=== PATIENT | male | born 1955 | race Caucasian/White ===

== ENCOUNTER → 2018-01-16 13:04 | Outpatient (CLI) | payer OTHER, SELFPAY ==
[2018-01-16 14:37] LABS: Alanine Aminotransferase 38 IU/L (21-72); Albumin 4.8 g/dL (3.5-5.0); Albumin Globulin Ratio 1.7 (1.0-2.8); Alkaline Phosphatase 83 U/L (38-126); Aspartate Aminotransferase 31 IU/L (17-59); BUN Creatinine Ratio 15.6 (6-22); Bilirubin Total 0.3 mg/dL (0.2-1.3); Blood Urea Nitrogen 14 mg/dL (9-20); Carbon Dioxide 28 mmol/L (22-32); Chloride 104 mmol/L (98-107); Cholesterol 141 mg/dL (140-199); Estimated Glomerular Filt Rate > 60.0 mL/min (>60); Globulin 2.8 g/dL (1.7-4.1); Glucose 108 mg/dL (80-110); HDL Cholesterol 41 mg/dL (40-60); HEMOLYSIS < 15 (0-50); LDL Cholesterol Calculated 65 mg/dL (<100); Potassium 4.9 mmol/L (3.4-5.1); Sodium 144 mmol/L (137-145); Total Protein 7.6 g/dL (6.3-8.2); Triglycerides 174 mg/dL (35-150)
== END ==
PROVIDERS: Family Provider Internal Medicine; PCP Internal Medicine; Visit Provider Internal Medicine
DX: E78.5 Hyperlipidemia, unspecified (principal); G25.9 Extrapyramidal and movement disorder, unspecified; I25.10 Atherosclerotic heart disease of native coronary artery without angina pectoris
CPT/HCPCS: 36415; 80053; 80061

== ENCOUNTER → 2018-11-22 08:33 | Outpatient (CLI) | payer OTHER, SELFPAY ==
[2018-11-22 10:05] LABS: Alanine Aminotransferase 26 IU/L (21-72); Albumin 4.2 g/dL (3.5-5.0); Albumin Globulin Ratio 1.4 (1.0-2.8); Alkaline Phosphatase 92 U/L (38-126); Aspartate Aminotransferase 38 IU/L (17-59); Bilirubin Total 0.4 mg/dL (0.2-1.3); Blood Urea Nitrogen 16 mg/dL (9-20); Calcium 9.3 mg/dL (8.4-10.2); Carbon Dioxide 24 mmol/L (22-32); Chloride 106 mmol/L (98-107); Cholesterol 142 mg/dL (140-199); Estimated Glomerular Filt Rate > 60.0 mL/min (>60); Glucose 123 mg/dL (80-110); HDL Cholesterol 32 mg/dL (40-60); HEMOLYSIS 15 (0-50); LDL Cholesterol Calculated 71 mg/dL (<100); Magnesium 2.1 mg/dL (1.6-2.3); Sodium 138 mmol/L (137-145); Total Protein 7.2 g/dL (6.3-8.2); Triglycerides 193 mg/dL (35-150)
[2018-11-22 10:39] LABS: Thyroid Stimulating Hormone 1.52 uIU/mL (0.47-4.68)
== END ==
PROVIDERS: PCP Internal Medicine; Visit Provider Internal Medicine Cardiovascular Disease
DX: E78.5 Hyperlipidemia, unspecified (principal); R00.1 Bradycardia, unspecified
CPT/HCPCS: 36415; 80053; 80061; 83735; 84443

== ENCOUNTER 2019-01-03 11:15 | Outpatient (RCR) | payer OTHER, SELFPAY ==
--- NOTE | 2018-05-04 16:00 | PT.OIE ---
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) Hyperlipidemia (Chronic 09/25/10) Peripheral neuropathy (Chronic 09/25/10) Gastroesophageal reflux disease without esophagitis (Chronic 09/25/10) Umbilical hernia without obstruction and without gangrene (Chronic) Irritable bowel syndrome (Chronic 09/25/10) History of nephrolithiasis (Chronic) Colon polyps (Chronic ~2012) Past Surgical History History of carpal tunnel repair Status post discectomy Provider Visit Care Team Role Provider Type Frankie Martinez MD Primary Care Provider Physician Specialty: Internal Medicine Address: [address] [place] [address], [id number] Email: [email or web address] Latonya Perea MD Attending Provider Non-Staff Specialty: Neurology Address: [address] [place] [address], [id number] Email: Physical Therapy Initial Evaluation PT-OP-A Visit Information Start: 05/04/18 17:51 Freq: Status: Active Protocol: Document 05/04/18 16:00 RCC (Rec: 05/07/18 15:33 [facility] [email or web address]) Out-Patient Physical Therapy Visit Information Visit Information Visit Type Initial Evaluation Visit Start Time 16:00 Visit Stop Time 16:45 Total Visit Minutes 45 Visit Number 1 Number of CELERY WRAPPER Visits 0 Evaluation Information Evaluation Date 05/04/18 PT-OP-B Current Condition Start: 05/04/18 17:51 Freq: Status: Active Protocol: Document 05/04/18 16:00 RCC (Rec: 05/07/18 15:33 RCC [email or web address]) Current Condition History of Current Condition Current Complaints B neuropathy (painful) and low back pain History of Current Condition Pt is a 62 y/o male presenting to physical therapy with a c/ o bilateral LE and low back pain. He reports low back pain is chronic, but LE pain has been worsening due to peripheral neuropathy worsening over the past year. He admits to general lower back and LE cramping and weakness noted in his legs. He does try to work on his stationary bike for 15 min 3 times per week. His has advanced Parkinson's Disease, and does have some CG help but does have to physically assist at home. He admits that he was taking narcotics for pain control but recently stopped in December of 2017. He states that the pain clinic he has attended has not helped much with pain. He would like to gain strength in his legs, improve balance and if possible maybe decrease his LE pain. He has trouble with stairs at home (he has a full flight he does daily with rail ), but would love to get back to doing yard work with less discomfort or issues. He is being seen by Dr. Perea for re-assessments a few times a year Treatment Goals Patient/Caregiver Goals improve mobility, be able to do yard work, improve strength and balance Prior Functional Status Baseline Function- Recreation/Hobbies yard work and mowing his lawn Current Functional Impairments (Reported) Functional Limitations- Recreation/ unable to mow lawn or do yard Hobbies work due to pain Personal Factors Other Personal Factors That May Effect h/o 3 back surgeries, T11 Therapy/Recovery kyphoplasty 2011, bilateral neuropathy, dyskinesia with spasms- aggravated with stress per pt; h/o depression, primary CG for with advanced PD PT-OP-C Subjective Start: 05/04/18 17:51 Freq: Status: Active Protocol: Document 05/04/18 16:00 RCC (Rec: 05/07/18 15:33 [facility] [email or web address]) OP-PT Subjective Patient Comments Patient Reported Progress Worse Patient Questionnaires Lower Extremity Functional Scale LEFS Score 38 LEFS Impairment 40 to 59% Impaired (Score 32- 47) OP-PT Pain Assessment Location bilateral LEs Pain Location Details 4 Scale Used Numeric (1 - 10) PT-OP-E Functional Tests Start: 05/04/18 17:51 Freq: Status: Active Protocol: Document 05/04/18 16:00 RCC (Rec: 05/07/18 15:33 [facility] [email or web address]) Functional Tests Functional Gait Assessment Score 25 Functional Gait Assessment Impairment 1 to <20% Impaired (Score 25- Rating 29) PT-OP-F Manual Assessment Start: 05/04/18 17:51 Freq: Status: Active Protocol: Document 05/04/18 16:00 RCC (Rec: 05/07/18 15:33 RCC [email or web address]) Manual Assessments Soft Tissue Assessment Soft Tissue Mobility Assessment hypertonicity in lumbar paraspinals and QL bilaterally PT-OP-G Mobility & Gait Start: 05/04/18 17:51 Freq: Status: Active Protocol: Document 05/04/18 16:00 RCC (Rec: 05/07/18 15:33 RCC [email or web address]) OP Gait Assessment Gait Deviations General Gait Pattern Antalgic Decreased Stride Length Wide Based Gait Stair Climbing Evaluation Comments Stair Climbing Comments see Functional Gait Assessment PT-OP-H Neuro Start: 05/04/18 17:51 Freq: Status: Active Protocol: Document 05/04/18 16:00 RCC (Rec: 05/07/18 15:33 RCC [email or web address]) Sensation Evaluation Gross Sensation Gross Sensation Left LE Impaired Right LE Impaired Coordination Evaluation Upper Extremity Tests Right Alternate Nose to Finger Test Normal Performance Pronation/Supination Test Normal Performance Left Alternate Nose to Finger Test Normal Performance Pronation/Supination Test Normal Performance Lower Extremity Tests Right Alternate Heel to Knee; Heel to Toe Test Normal Performance Left Alternate Heel to Knee; Heel to Toe Test Normal Performance Deep Tendon Reflex & Clonus Assessment Deep Tendon Reflex Left Patellar Deep Tendon Reflex 0 Absent Right Patellar Deep Tendon Reflex 2+ Normal Bilateral Achilles Deep Tendon Reflex 2+ Normal Ankle Clonus Bilateral Clonus Assessment Absent PT-OP-K Range of Motion Start: 05/04/18 17:51 Freq: Status: Active Protocol: Document 05/04/18 16:00 RCC (Rec: 05/07/18 15:33 RCC [email or web address]) Lumbar Spine Range of Motion Lumbar Spine Active Degrees Testing Position Standing Flexion 60 Extension 10 PT-OP-L Special Tests Start: 05/04/18 17:51 Freq: Status: Active Protocol: Document 05/04/18 16:00 RCC (Rec: 05/07/18 15:33 RCC [email or web address]) Special Tests Lumbar Spine Special Tests Vertical Spine Loading Test Results negative B Manual Traction Test Results no difference B Straight Leg Raise Test Results negative B PT-OP-M Strength Start: 05/04/18 17:51 Freq: Status: Active Protocol: Document 05/04/18 16:00 RCC (Rec: 03/03/19 15:33 RCC [email or web address]) Hip Strength Hip Manual Muscle Testing Right Flexion (L2) 5 Normal Adduction 5 Normal External Rotation 4 Good Internal Rotation 4+ Good+ Left Flexion (L2) 4+ Good+ Adduction 5 Normal External Rotation 4+ Good+ Internal Rotation 4+ Good+ Knee Strength Knee Manual Muscle Testing Right Flexion (S2) 4+ Good+ Extension (L3) 5 Normal Left Flexion (S2) 5 Normal Extension (L3) 5 Normal Ankle/Foot Strength Ankle and Foot Manual Muscle Testing Right Dorsiflexion (L4) 4+ Good+ Plantarflexion (S1) 4 Good Inversion 5 Normal Eversion (S1) 5 Normal Left Dorsiflexion (L4) 5 Normal Plantarflexion (S1) 4 Good Inversion 5 Normal Eversion (S1) 5 Normal Toe Strength Toe Manual Muscle Testing Left Great Toe Extension 5 Normal Right Great Toe Extension 4+ Good+ PT-OP-Q Treatments Start: 05/04/18 17:51 Freq: Status: Active Protocol: Document 05/04/18 16:00 [facility] (Rec: 05/07/18 15:33 RCC [email or web address]) Therapeutic Exercises Supine Exercises TA activation Supine Exercise Name transverse abdominal activation Side bilateral Comments hooklying Standing Exercises HC stretch Side bilateral Reps/Minutes 2x1 min Comments stairs HS stretch Side bilateral Reps/Minutes 2x30 sec each Comments stairs Other Exercises psoas stretch Other Exercise Name kneeling psoas stretch Side bilateral Reps/Minutes x30 sec each PT-OP-T Assessment and Plan Start: 05/04/18 17:51 Freq: Status: Active Protocol: Document 05/04/18 16:00 [facility] (Rec: 05/07/18 15:33 [facility] [email or web address]) Physical Therapy Assessment Rehab Potential Rehabilitation Potential Fair Evaluation Complexity Number of Personal Factors/Comorbidities 3 or More Number of Body Systems Impaired 3 Clinical Presentation at Evaluation Stable Impairments Impairments Activity Tolerance Balance Functional Activities Functional Mobility Gait Pain Posture Soft Tissue Mobility Strength Goals Recreational activities Impairment unable to do yard work due to pain. Short Term Goal (STG) Pt will report being able to do yard work for 30 min with pain rated 2/10 or less. STG Duration 4 weeks Circuit Rider Goal (LTG) Pt will report being able to do yard work for 1 hr with pain rated 2/10 or less prior to d/c. LTG Duration 8 weeks LE strength Impairment LE weakness Senior Living Goal (LTG) Pt with score 5/5 with all LE manual muscle testing prior to d/c to assist with improved tolerance to managing stairs at home. LTG Duration 8 weeks Functional Gait Assessment Impairment Functional Gait Score 25/30 Circuit Rider Goal (LTG) Pt will improve to >27/30 with Functional Gait Assessment score to demonstrate improvements with dynamic standing balance and gait equal to peers of his own age prior to d/c. LTG Duration 8 weeks LEFS Impairment Lower Extremity Functional Scale: 38/80 Short Term Goal (STG) Pt will improve with Lower Extremity Functional scale to 43 or greater, to demonstrate improvements with functional mobility and daily tasks. STG Duration 4 weeks Circuit Rider Goal (LTG) Pt will improve with Lower Extremity Functional scale to 48 or greater, to demonstrate improvements with functional mobility and daily tasks. LTG Duration 8 weeks Assessment Summary Assessment Pt presents with BLE pain, appearing to be due to bilateral peripheral neuropathy. His low back pain is chronic and notes his main concern is to improve his strength, balance, and be able to do yard work around his home. Pt's Functional Gait Assessment Score is 25/30, which is below people of his age mean score of 27.1, demonstrating multiple gait deviations and difficulties with functional dynamic activities. Pt is a good candidate for physical therapy to improve his strength, activity tolerance, dynamic standing balance, as well as continued progression of a home exercise program to incorporate with his already 3x/wk recumbent bicycle training. Physical Therapy Plan Frequency and Duration Frequency of Treatment 2x/Week Duration of Treatment 8 weeks Plan of Care Start Date 05/04/18 Plan of Care End Date 06/29/18 Therapeutic Interventions Therapeutic Interventions Aquatic Therapy Balance Training Gait Training Home Exercise Program Manual Therapy Neuromuscular Re-education Patient/Caregiver Education Self-Care/Home Management Soft Tissue Mobilization Taping Therapeutic Activities Therapeutic Exercises Modalities Cold Pack/Ice Massage Electric Stimulation Hot Packs Ultrasound Next Visit Focus/Plan Next Note Type Treatment Note Next Visit Plan aishwarya Shuttle Balance board training, Shuttle Recovery for LE strengthening; continue LE stretching and lower chain strengthening, advance core stability.
--- NOTE | 2018-05-04 16:00 | PT.OPPOC ---
Current Diagnoses Dystonia, unspecified (05/04/18) Hereditary and idiopathic neuropathy, unspecified (05/04/18) Provider Visit Care Team Role Provider Type Frankie Martinez MD Primary Care Provider Physician Specialty: Internal Medicine Address: [address] [place] [address], [id number] Email: [email or web address] Latonya Perea MD Attending Provider Non-Staff Specialty: Neurology Address: [address] [place] [address], [id number] Email: Plan Of Care PT-OP-T Assessment and Plan Start: 05/04/18 17:51 Freq: Status: Active Protocol: Document 05/04/18 16:00 RCC (Rec: 05/07/18 15:33 RCC [email or web address]) Physical Therapy Assessment Rehab Potential Rehabilitation Potential Fair Evaluation Complexity Number of Personal Factors/Comorbidities 3 or More Number of Body Systems Impaired 3 Clinical Presentation at Evaluation Stable Impairments Impairments Activity Tolerance Balance Functional Activities Functional Mobility Gait Pain Posture Soft Tissue Mobility Strength Goals Recreational activities Impairment unable to do yard work due to pain. Short Term Goal (STG) Pt will report being able to do yard work for 30 min with pain rated 2/10 or less. STG Duration 4 weeks Mcfp Goal (LTG) Pt will report being able to do yard work for 1 hr with pain rated 2/10 or less prior to d/c. LTG Duration 8 weeks LE strength Impairment LE weakness Mcfp Goal (LTG) Pt with score 5/5 with all LE manual muscle testing prior to d/c to assist with improved tolerance to managing stairs at home. LTG Duration 8 weeks Functional Gait Assessment Impairment Functional Gait Score 25/30 Mcfp Goal (LTG) Pt will improve to >27/30 with Functional Gait Assessment score to demonstrate improvements with dynamic standing balance and gait equal to peers of his own age prior to d/c. LTG Duration 8 weeks LEFS Impairment Lower Extremity Functional Scale: 38/80 Short Term Goal (STG) Pt will improve with Lower Extremity Functional scale to 43 or greater, to demonstrate improvements with functional mobility and daily tasks. STG Duration 4 weeks Biofuels Processing Technician Goal (LTG) Pt will improve with Lower Extremity Functional scale to 48 or greater, to demonstrate improvements with functional mobility and daily tasks. LTG Duration 8 weeks Assessment Summary Assessment Pt presents with BLE pain, appearing to be due to bilateral peripheral neuropathy. His low back pain is chronic and notes his main concern is to improve his strength, balance, and be able to do yard work around his home. Pt's Functional Gait Assessment Score is 25/30, which is below people of his age mean score of 27.1, demonstrating multiple gait deviations and difficulties with functional dynamic activities. Pt is a good candidate for physical therapy to improve his strength, activity tolerance, dynamic standing balance, as well as continued progression of a home exercise program to incorporate with his already 3x/wk recumbent bicycle training. Physical Therapy Plan Frequency and Duration Frequency of Treatment 2x/Week Duration of Treatment 8 weeks Plan of Care Start Date 05/04/18 Plan of Care End Date 06/29/18 Therapeutic Interventions Therapeutic Interventions Aquatic Therapy Balance Training Gait Training Home Exercise Program Manual Therapy Neuromuscular Re-education Patient/Caregiver Education Self-Care/Home Management Soft Tissue Mobilization Taping Therapeutic Activities Therapeutic Exercises Modalities Cold Pack/Ice Massage Electric Stimulation Hot Packs Ultrasound Next Visit Focus/Plan Next Note Type Treatment Note Next Visit Plan aishwarya, Shuttle Balance board training, Shuttle Recovery for LE strengthening; continue LE stretching and lower chain strengthening, advance core stability. Plan of Care Dates Plan of Care Start Date 05/04/18 Plan of Care End Date 06/29/18 Please Sign and Return: I have reviewed this Plan of Care and certify that the skilled therapy services above are required to meet the patient?s needs. Physician Signature Date Printed Name and Credentials Clinical Instructor Signature Printed Name and Credentials
--- NOTE | 2018-05-09 13:51 | PT.OTN ---
Current Diagnoses Dystonia, unspecified (05/09/18) Hereditary and idiopathic neuropathy, unspecified (05/09/18) Physical Therapy Treatment Note PT-OP-A Visit Information Start: 05/04/18 17:51 Freq: Status: Active Protocol: Document 05/09/18 13:03 EA (Rec: 05/09/18 13:50 EA [id number]) Out-Patient Physical Therapy Visit Information Visit Information Visit Start Time 10:30 Visit Stop Time 11:15 Total Visit Minutes 42 Visit Number 2 PT-OP-B Current Condition Start: 05/04/18 17:51 Freq: Status: Active Protocol: Document 05/04/18 16:00 RCC (Rec: 05/07/18 15:33 RCC [email or web address]) Current Condition History of Current Condition Current Complaints B neuropathy (painful) and low back pain History of Current Condition Pt is a 62 y/o male presenting to physical therapy with a c/ o bilateral LE and low back pain. He reports low back pain is chronic, but LE pain has been worsening due to peripheral neuropathy worsening over the past year. He admits to general lower back and LE cramping and weakness noted in his legs. He does try to work on his stationary bike for 15 min 3 times per week. His has advanced Parkinson's Disease, and does have some CG help but does have to physically assist at home. He admits that he was taking narcotics for pain control but recently stopped in December of 2017. He states that the pain clinic he has attended has not helped much with pain. He would like to gain strength in his legs, improve balance and if possible maybe decrease his LE pain. He has trouble with stairs at home (he has a full flight he does daily with rail ), but would love to get back to doing yard work with less discomfort or issues. He is being seen by Dr. Perea for re-assessments a few times a year Treatment Goals Patient/Caregiver Goals improve mobility, be able to do yard work, improve strength and balance Prior Functional Status Baseline Function- Recreation/Hobbies yard work and mowing his lawn Current Functional Impairments (Reported) Functional Limitations- Recreation/ unable to mow lawn or do yard Hobbies work due to pain Personal Factors Other Personal Factors That May Effect h/o 3 back surgeries, T11 Therapy/Recovery kyphoplasty 2011, bilateral neuropathy, dyskinesia with spasms- aggravated with stress per pt; h/o depression, primary CG for with advanced PD PT-OP-C Subjective Start: 05/04/18 17:51 Freq: Status: Active Protocol: Document 05/09/18 13:03 EA (Rec: 05/09/18 13:50 EA [id number]) OP-PT Subjective Patient Comments Patient Comments Pt reports unable to walk more than 1/4 a mile due to weakness on BLE's; states pain to lumbar region and upper gluteals also bothers his mobility. PT-OP-E Functional Tests Start: 05/04/18 17:51 Freq: Status: Active Protocol: Document 05/04/18 16:00 RCC (Rec: 05/07/18 15:33 RCC [email or web address]) Functional Tests Functional Gait Assessment Score 25 Functional Gait Assessment Impairment 1 to <20% Impaired (Score 25- Rating 29) PT-OP-F Manual Assessment Start: 05/04/18 17:51 Freq: Status: Active Protocol: Document 05/04/18 16:00 RCC (Rec: 05/07/18 15:33 RCC [email or web address]) Manual Assessments Soft Tissue Assessment Soft Tissue Mobility Assessment hypertonicity in lumbar paraspinals and QL bilaterally PT-OP-G Mobility & Gait Start: 05/04/18 17:51 Freq: Status: Active Protocol: Document 05/04/18 16:00 RCC (Rec: 05/07/18 15:33 RCC [email or web address]) OP Gait Assessment Gait Deviations General Gait Pattern Antalgic Decreased Stride Length Wide Based Gait Stair Climbing Evaluation Comments Stair Climbing Comments see Functional Gait Assessment PT-OP-H Neuro Start: 05/04/18 17:51 Freq: Status: Active Protocol: Document 05/04/18 16:00 RCC (Rec: 05/07/18 15:33 RCC [email or web address]) Sensation Evaluation Gross Sensation Gross Sensation Left LE Impaired Right LE Impaired Coordination Evaluation Upper Extremity Tests Right Alternate Nose to Finger Test Normal Performance Pronation/Supination Test Normal Performance Left Alternate Nose to Finger Test Normal Performance Pronation/Supination Test Normal Performance Lower Extremity Tests Right Alternate Heel to Knee; Heel to Toe Test Normal Performance Left Alternate Heel to Knee; Heel to Toe Test Normal Performance Deep Tendon Reflex & Clonus Assessment Deep Tendon Reflex Left Patellar Deep Tendon Reflex 0 Absent Right Patellar Deep Tendon Reflex 2+ Normal Bilateral Achilles Deep Tendon Reflex 2+ Normal Ankle Clonus Bilateral Clonus Assessment Absent PT-OP-K Range of Motion Start: 05/04/18 17:51 Freq: Status: Active Protocol: Document 05/04/18 16:00 RCC (Rec: 05/07/18 15:33 RCC [email or web address]) Lumbar Spine Range of Motion Lumbar Spine Active Degrees Testing Position Standing Flexion 60 Extension 10 PT-OP-L Special Tests Start: 05/04/18 17:51 Freq: Status: Active Protocol: Document 05/04/18 16:00 RCC (Rec: 05/07/18 15:33 RCC [email or web address]) Special Tests Lumbar Spine Special Tests Vertical Spine Loading Test Results negative B Manual Traction Test Results no difference B Straight Leg Raise Test Results negative B PT-OP-M Strength Start: 05/04/18 17:51 Freq: Status: Active Protocol: Document 05/04/18 16:00 RCC (Rec: 05/07/18 15:33 RCC [email or web address]) Hip Strength Hip Manual Muscle Testing Right Flexion (L2) 5 Normal Adduction 5 Normal External Rotation 4 Good Internal Rotation 4+ Good+ Left Flexion (L2) 4+ Good+ Adduction 5 Normal External Rotation 4+ Good+ Internal Rotation 4+ Good+ Knee Strength Knee Manual Muscle Testing Right Flexion (S2) 4+ Good+ Extension (L3) 5 Normal Left Flexion (S2) 5 Normal Extension (L3) 5 Normal Ankle/Foot Strength Ankle and Foot Manual Muscle Testing Right Dorsiflexion (L4) 4+ Good+ Plantarflexion (S1) 4 Good Inversion 5 Normal Eversion (S1) 5 Normal Left Dorsiflexion (L4) 5 Normal Plantarflexion (S1) 4 Good Inversion 5 Normal Eversion (S1) 5 Normal Toe Strength Toe Manual Muscle Testing Left Great Toe Extension 5 Normal Right Great Toe Extension 4+ Good+ PT-OP-Q Treatments Start: 05/04/18 17:51 Freq: Status: Active Protocol: Document 05/09/18 13:03 EA (Rec: 05/09/18 13:50 EA [id number]) Cardio Equipment Recumbent Stepper (Sci-Fit) Duration (Minutes) 5 Resistance 1 Seat Position 12 Therapeutic Exercises Supine Exercises TA activation Supine Exercise Name transverse abdominal activation Side bilateral Comments hooklying Sidelying Exercises 1 Sidelying Exercise Name Clamshells Reps/Minutes x 15 reps x 2 Standing Exercises HC stretch Side bilateral Reps/Minutes 2x1 min Comments stairs HS stretch Side bilateral Reps/Minutes 2x30 sec each Comments stairs Other Exercises 3 Other Exercise Name PPT with SLR Reps/Minutes x5 reps each legs x 2 sets Comments watch for the back and leg spasms 2 Other Exercise Name PPT with marching Reps/Minutes x 10 reps x 2 sets 1 Other Exercise Name SKTC Reps/Minutes x 30sec each psoas stretch Other Exercise Name kneeling psoas stretch Side bilateral Reps/Minutes x30 sec each PT-OP-T Assessment and Plan Start: 05/04/18 17:51 Freq: Status: Active Protocol: Document 05/09/18 13:03 EA (Rec: 05/09/18 13:50 EA [id number]) Physical Therapy Assessment Assessment Summary Assessment Pt tolerated supine exercises except with available range trunk rotation and PPT/SLR more than 7 reps due to pain full LE's spasms. Due to abdominal weakness, i recommended to patient to refrain both LE leg up that he is currently performing at home, I believe this would cause alot of strain to low back region. Physical Therapy Plan Next Visit Focus/Plan Next Note Type Treatment Note Next Visit Plan aishwarya, Shuttle Balance board training, Shuttle Recovery for LE strengthening; continue LE stretching and lower chain strengthening, advance core stability.
--- NOTE | 2018-05-11 16:01 | PT.OTN ---
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 He reports low back pain is chronic, but LE pain has been worsening due to peripheral neuropathy worsening over the past year. He admits to general lower back and LE cramping and weakness noted in his legs. He does try to work on his stationary bike for 15 min 3 times per week. His has advanced Parkinson's Disease, and does have some CG help but does have to physically assist at home. He admits that he was taking narcotics for pain control but recently stopped in December of 2017. He states that the pain clinic he has attended has not helped much with pain. He would like to gain strength in his legs, improve balance and if possible maybe decrease his LE pain. He has trouble with stairs at home (he has a full flight he does daily with rail ), but would love to get back to doing yard work with less discomfort or issues. He is being seen by Dr. Perea for re-assessments a few times a year Treatment Goals Patient/Caregiver Goals improve mobility, be able to do yard work, improve strength and balance Prior Functional Status Baseline Function- Recreation/Hobbies yard work and mowing his lawn Current Functional Impairments (Reported) Functional Limitations- Recreation/ unable to mow lawn or do yard Hobbies work due to pain Personal Factors Other Personal Factors That May Effect h/o 3 back surgeries, T11 Therapy/Recovery kyphoplasty 2012, bilateral neuropathy, dyskinesia with spasms- aggravated with stress per pt; h/o depression, primary CG for with advanced PD PT-OP-C Subjective Start: 05/04/18 17:51 Freq: Status: Active Protocol: Document 05/11/18 16:01 [facility] (Rec: 05/11/18 18:05 [facility] [email or web address]) OP-PT Subjective Patient Comments Patient Comments Pt notes that his HEP is going well, his core stabilization is better after modifications at the most recent session. Pt still c/o cramping, even the tibialis anterior bilaterally. PT-OP-D Balance Start: 05/04/18 17:51 Freq: Status: Active Protocol: Document 05/11/18 16:01 [facility] (Rec: 05/11/18 18:05 [facility] [email or web address]) OP-PT Balance Assessment Standing Balance Standing Balance Comments increased weight shift to the R with lateral standing balance on Shuttle Balance ( red) Mao Fall Scale Copyright Permission Mayco PAYNE, Mayco RM, Cynthia SJ. Development of a scale to identify the fall- prone patient. Can J Aging 1989;8;366-7. Alcira Mao (2009). Preventing patient falls. (2nd ed). [place]: [place]. PT-OP-E Functional Tests Start: 05/04/18 17:51 Freq: Status: Active Protocol: Document 05/04/18 16:00 [facility] (Rec: 05/07/18 15:33 [facility] [email or web address]) Functional Tests Functional Gait Assessment Score 25 Functional Gait Assessment Impairment 1 to <20% Impaired (Score 25- Rating 29) PT-OP-F Manual Assessment Start: 05/04/18 17:51 Freq: Status: Active Protocol: Document 05/04/18 16:00 [facility] (Rec: 05/07/18 15:33 [facility] [email or web address]) Manual Assessments Soft Tissue Assessment Soft Tissue Mobility Assessment hypertonicity in lumbar paraspinals and QL bilaterally PT-OP-G Mobility & Gait Start: 05/04/18 17:51 Freq: Status: Active Protocol: Document 05/04/18 16:00 [facility] (Rec: 05/07/18 15:33 [facility] [email or web address]) OP Gait Assessment Gait Deviations General Gait Pattern Antalgic Decreased Stride Length Wide Based Gait Stair Climbing Evaluation Comments Stair Climbing Comments see Functional Gait Assessment PT-OP-H Neuro Start: 05/04/18 17:51 Freq: Status: Active Protocol: Document 05/04/18 16:00 [facility] (Rec: 05/07/18 15:33 [facility] [email or web address]) Sensation Evaluation Gross Sensation Gross Sensation Left LE Impaired Right LE Impaired Coordination Evaluation Upper Extremity Tests Right Alternate Nose to Finger Test Normal Performance Pronation/Supination Test Normal Performance Left Alternate Nose to Finger Test Normal Performance Pronation/Supination Test Normal Performance Lower Extremity Tests Right Alternate Heel to Knee; Heel to Toe Test Normal Performance Left Alternate Heel to Knee; Heel to Toe Test Normal Performance Deep Tendon Reflex & Clonus Assessment Deep Tendon Reflex Left Patellar Deep Tendon Reflex 0 Absent Right Patellar Deep Tendon Reflex 2+ Normal Bilateral Achilles Deep Tendon Reflex 2+ Normal Ankle Clonus Bilateral Clonus Assessment Absent PT-OP-K Range of Motion Start: 05/04/18 17:51 Freq: Status: Active Protocol: Document 05/04/18 16:00 [facility] (Rec: 05/07/18 15:33 [facility] [email or web address]) Lumbar Spine Range of Motion Lumbar Spine Active Degrees Testing Position Standing Flexion 60 Extension 10 PT-OP-L Special Tests Start: 05/04/18 17:51 Freq: Status: Active Protocol: Document 05/04/18 16:00 [facility] (Rec: 05/07/18 15:33 [facility] [email or web address]) Special Tests Lumbar Spine Special Tests Vertical Spine Loading Test Results negative B Manual Traction Test Results no difference B Straight Leg Raise Test Results negative B PT-OP-M Strength Start: 05/04/18 17:51 Freq: Status: Active Protocol: Document 05/04/18 16:00 [facility] (Rec: 05/07/18 15:33 [facility] [email or web address]) Hip Strength Hip Manual Muscle Testing Right Flexion (L2) 5 Normal Adduction 5 Normal External Rotation 4 Good Internal Rotation 4+ Good+ Left Flexion (L2) 4+ Good+ Adduction 5 Normal External Rotation 4+ Good+ Internal Rotation 4+ Good+ Knee Strength Knee Manual Muscle Testing Right Flexion (S2) 4+ Good+ Extension (L3) 5 Normal Left Flexion (S2) 5 Normal Extension (L3) 5 Normal Ankle/Foot Strength Ankle and Foot Manual Muscle Testing Right Dorsiflexion (L4) 4+ Good+ Plantarflexion (S1) 4 Good Inversion 5 Normal Eversion (S1) 5 Normal Left Dorsiflexion (L4) 5 Normal Plantarflexion (S1) 4 Good Inversion 5 Normal Eversion (S1) 5 Normal Toe Strength Toe Manual Muscle Testing Left Great Toe Extension 5 Normal Right Great Toe Extension 4+ Good+ PT-OP-Q Treatments Start: 05/04/18 17:51 Freq: Status: Active Protocol: Document 05/11/18 16:01 [facility] (Rec: 05/11/18 18:05 [facility] [email or web address]) Cardio Equipment Recumbent Stepper (Sci-Fit) Duration (Minutes) 5 Resistance 1 Seat Position 12 Gym Equipment Cable Column (Body Solid) Rows Details with TA activation Resistance 30 lbs Reps/Time x15 Lat Pull Down Details with TA activation Resistance 30 lbs Reps/Time x20 Shuttle Recovery Unilateral Squats Resistance 50 lbs Shuttle Recovery Platform Stable Reps/Time x12 each Bilateral Squats Resistance 75 lbs Shuttle Recovery Platform Stable Reps/Time 2x10 Shuttle Balance Red Details normal stance and semi-tandem A/P, lateral WBOS and weight shift Reps/Duration 15 min Therapeutic Ball LTR Exercise Details lower trunk rotation Ball Size/Color 55 cm Body Position supine feet on ball Reps/Duration x15 each direction Therapeutic Exercises Standing Exercises tibialis anterior stretch Side bilateral Reps/Minutes x1 min each Comments standing- hip extended and ankle in PF with top of foot resting on floor lateral walks Standing Exercise Name lateral walks Side bilateral Resistance L2 band Reps/Minutes 1 lap each @ balance bar HC stretch Side bilateral Reps/Minutes 2x1 min Comments SALO Other Exercises child's pose Side bilateral Reps/Minutes 3x30 sec psoas stretch Other Exercise Name kneeling psoas stretch Side bilateral Reps/Minutes x30 sec each PT-OP-T Assessment and Plan Start: 05/04/18 17:51 Freq: Status: Active Protocol: Document 05/11/18 16:01 [facility] (Rec: 05/11/18 18:05 [facility] [email or web address]) Physical Therapy Assessment Assessment Summary Assessment Pt reports no longer with pain with HEP with modifications from previous session. He had one episode of R sided low back tension with standing balance on Shuttle Balance, but decreased with LTR and child's pose stretch. Pt fatigued after session, but overall had good timing of activities. Pt able to decrease tension in tibialis anterior bilaterally with standing stretch. Physical Therapy Plan Frequency and Duration Frequency of Treatment 2x/Week Duration of Treatment 8 weeks Plan of Care Start Date 05/04/18 Plan of Care End Date 06/29/18 Next Visit Focus/Plan Next Note Type Treatment Note Next Visit Plan progress core stability as tolerated, quadriceps and HS strengthening
--- NOTE | 2018-05-18 14:37 | PT.OTN ---
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 He reports low back pain is chronic, but LE pain has been worsening due to peripheral neuropathy worsening over the past year. He admits to general lower back and LE cramping and weakness noted in his legs. He does try to work on his stationary bike for 15 min 3 times per week. His has advanced Parkinson's Disease, and does have some CG help but does have to physically assist at home. He admits that he was taking narcotics for pain control but recently stopped in December of 2017. He states that the pain clinic he has attended has not helped much with pain. He would like to gain strength in his legs, improve balance and if possible maybe decrease his LE pain. He has trouble with stairs at home (he has a full flight he does daily with rail ), but would love to get back to doing yard work with less discomfort or issues. He is being seen by Dr. Perea for re-assessments a few times a year Treatment Goals Patient/Caregiver Goals improve mobility, be able to do yard work, improve strength and balance Prior Functional Status Baseline Function- Recreation/Hobbies yard work and mowing his lawn Current Functional Impairments (Reported) Functional Limitations- Recreation/ unable to mow lawn or do yard Hobbies work due to pain Personal Factors Other Personal Factors That May Effect h/o 3 back surgeries, T11 Therapy/Recovery kyphoplasty 2012, bilateral neuropathy, dyskinesia with spasms- aggravated with stress per pt; h/o depression, primary CG for with advanced PD PT-OP-C Subjective Start: 05/04/18 17:51 Freq: Status: Active Protocol: Document 05/18/18 14:25 [facility] (Rec: 05/18/18 14:30 [facility] [email or web address]) OP-PT Subjective Patient Comments Patient Comments Brooks reports that his feet are really hurting him today and it feels like he is walking on hot glass PT-OP-D Balance Start: 05/04/18 17:51 Freq: Status: Active Protocol: Document 05/11/18 16:01 [facility] (Rec: 05/11/18 18:05 [facility] [email or web address]) OP-PT Balance Assessment Standing Balance Standing Balance Comments increased weight shift to the R with lateral standing balance on Shuttle Balance ( red) Mao Fall Scale Copyright Permission Mayco PAYNE, Mayco RM, Cynthia SJ. Development of a scale to identify the fall- prone patient. Can J Aging 1989;8;366-7. Alcira Mao (2009). Preventing patient falls. (2nd ed). [place]: [place]. PT-OP-E Functional Tests Start: 05/04/18 17:51 Freq: Status: Active Protocol: Document 05/04/18 16:00 [facility] (Rec: 05/07/18 15:33 [facility] [email or web address]) Functional Tests Functional Gait Assessment Score 25 Functional Gait Assessment Impairment 1 to <20% Impaired (Score 25- Rating 29) PT-OP-F Manual Assessment Start: 05/04/18 17:51 Freq: Status: Active Protocol: Document 05/04/18 16:00 [facility] (Rec: 05/07/18 15:33 [facility] [email or web address]) Manual Assessments Soft Tissue Assessment Soft Tissue Mobility Assessment hypertonicity in lumbar paraspinals and QL bilaterally PT-OP-G Mobility & Gait Start: 05/04/18 17:51 Freq: Status: Active Protocol: Document 05/04/18 16:00 [facility] (Rec: 05/07/18 15:33 [facility] [email or web address]) OP Gait Assessment Gait Deviations General Gait Pattern Antalgic Decreased Stride Length Wide Based Gait Stair Climbing Evaluation Comments Stair Climbing Comments see Functional Gait Assessment PT-OP-H Neuro Start: 05/04/18 17:51 Freq: Status: Active Protocol: Document 05/04/18 16:00 [facility] (Rec: 05/07/18 15:33 [facility] [email or web address]) Sensation Evaluation Gross Sensation Gross Sensation Left LE Impaired Right LE Impaired Coordination Evaluation Upper Extremity Tests Right Alternate Nose to Finger Test Normal Performance Pronation/Supination Test Normal Performance Left Alternate Nose to Finger Test Normal Performance Pronation/Supination Test Normal Performance Lower Extremity Tests Right Alternate Heel to Knee; Heel to Toe Test Normal Performance Left Alternate Heel to Knee; Heel to Toe Test Normal Performance Deep Tendon Reflex & Clonus Assessment Deep Tendon Reflex Left Patellar Deep Tendon Reflex 0 Absent Right Patellar Deep Tendon Reflex 2+ Normal Bilateral Achilles Deep Tendon Reflex 2+ Normal Ankle Clonus Bilateral Clonus Assessment Absent PT-OP-K Range of Motion Start: 05/04/18 17:51 Freq: Status: Active Protocol: Document 05/04/18 16:00 [facility] (Rec: 05/07/18 15:33 [facility] [email or web address]) Lumbar Spine Range of Motion Lumbar Spine Active Degrees Testing Position Standing Flexion 60 Extension 10 PT-OP-L Special Tests Start: 05/04/18 17:51 Freq: Status: Active Protocol: Document 05/04/18 16:00 [facility] (Rec: 05/07/18 15:33 [facility] [email or web address]) Special Tests Lumbar Spine Special Tests Vertical Spine Loading Test Results negative B Manual Traction Test Results no difference B Straight Leg Raise Test Results negative B PT-OP-M Strength Start: 05/04/18 17:51 Freq: Status: Active Protocol: Document 05/04/18 16:00 [facility] (Rec: 05/07/18 15:33 [facility] [email or web address]) Hip Strength Hip Manual Muscle Testing Right Flexion (L2) 5 Normal Adduction 5 Normal External Rotation 4 Good Internal Rotation 4+ Good+ Left Flexion (L2) 4+ Good+ Adduction 5 Normal External Rotation 4+ Good+ Internal Rotation 4+ Good+ Knee Strength Knee Manual Muscle Testing Right Flexion (S2) 4+ Good+ Extension (L3) 5 Normal Left Flexion (S2) 5 Normal Extension (L3) 5 Normal Ankle/Foot Strength Ankle and Foot Manual Muscle Testing Right Dorsiflexion (L4) 4+ Good+ Plantarflexion (S1) 4 Good Inversion 5 Normal Eversion (S1) 5 Normal Left Dorsiflexion (L4) 5 Normal Plantarflexion (S1) 4 Good Inversion 5 Normal Eversion (S1) 5 Normal Toe Strength Toe Manual Muscle Testing Left Great Toe Extension 5 Normal Right Great Toe Extension 4+ Good+ PT-OP-Q Treatments Start: 05/04/18 17:51 Freq: Status: Active Protocol: Document 05/18/18 14:25 [facility] (Rec: 05/18/18 14:30 [facility] [email or web address]) Cardio Equipment Recumbent Elliptical (Biodex) Duration (Minutes) 5 Resistance lev 4 Gym Equipment Cable Column (Body Solid) Lat Pull Down Details with TA activation Resistance 40 lbs Reps/Time 3 x 10 Shuttle Recovery Unilateral Squats Resistance 50 lbs Shuttle Recovery Platform Stable Reps/Time x12 each Bilateral Squats Resistance 75 lbs Shuttle Recovery Platform Stable Reps/Time 2x10 Therapeutic Ball LTR Exercise Details lower trunk rotation Ball Size/Color 55 cm Body Position supine feet on ball Reps/Duration x15 each direction Therapeutic Exercises Supine Exercises 1 Supine Exercise Name supine ball rolls with heel dig to activate the hamstrings Side bilateral Reps/Minutes x 20 reps TA activation Supine Exercise Name transverse abdominal activation Side bilateral Comments hooklying Other Exercises child's pose Side bilateral Reps/Minutes 3x30 sec 1 Other Exercise Name SKTC Reps/Minutes x 30sec each psoas stretch Other Exercise Name kneeling psoas stretch Side bilateral Reps/Minutes x30 sec each Manual Therapy Treatment Manual Techniques 2 Type manual stretching of the hamstring, piriformis, and gluteals Body Position Supine 1 Type manual sciatic nerve flossing B Body Position Hooklying Reps/Duration x 10 reps each, knee flexion, ankle DF/PF, SLR PT-OP-T Assessment and Plan Start: 05/04/18 17:51 Freq: Status: Active Protocol: Document 05/18/18 14:32 [email or web address] (Rec: 05/18/18 14:33 [facility] [email or web address]) Physical Therapy Assessment Assessment Summary Assessment Cramping in the tibialis anterior and peroneals with hamstring stretching and the patient needed to stop a few times due to this but he was able to continue with his stretches following Physical Therapy Plan Frequency and Duration Frequency of Treatment 2x/Week Duration of Treatment 8 weeks Plan of Care Start Date 05/04/18 Plan of Care End Date 06/29/18 Therapeutic Interventions Therapeutic Interventions Aquatic Therapy Balance Training Gait Training Home Exercise Program Manual Therapy Neuromuscular Re-education Patient/Caregiver Education Self-Care/Home Management Soft Tissue Mobilization Taping Therapeutic Activities Therapeutic Exercises Modalities Cold Pack/Ice Massage Electric Stimulation Hot Packs Ultrasound Next Visit Focus/Plan Next Note Type Treatment Note Next Visit Plan progress core stability as tolerated, quadriceps and HS strengthening
--- NOTE | 2018-05-23 16:16 | PT.OTN ---
Current Diagnoses Dystonia, unspecified (05/23/18) Hereditary and idiopathic neuropathy, unspecified (05/23/18) Physical Therapy Treatment Note PT-OP-A Visit Information Start: 05/04/18 17:51 Freq: Status: Active Protocol: Document 05/23/18 13:45 HH (Rec: 05/23/18 16:15 HH [email or web address]) Out-Patient Physical Therapy Visit Information Visit Information Visit Type Treatment Note Visit Start Time 13:45 Visit Stop Time 14:30 Total Visit Minutes 45 Visit Number 5 Number of NEUROSCIENCE DIRECTOR NA Visits 0 PT-OP-B Current Condition Start: 05/04/18 17:51 Freq: Status: Active Protocol: Document 05/04/18 16:00 RCC (Rec: 05/07/18 15:33 RCC [email or web address]) Current Condition History of Current Condition Current Complaints B neuropathy (painful) and low back pain History of Current Condition Pt is a 62 y/o male presenting to physical therapy with a c/ o bilateral LE and low back pain. He reports low back pain is chronic, but LE pain has been worsening due to peripheral neuropathy worsening over the past year. He admits to general lower back and LE cramping and weakness noted in his legs. He does try to work on his stationary bike for 15 min 3 times per week. His has advanced Parkinson's Disease, and does have some CG help but does have to physically assist at home. He admits that he was taking narcotics for pain control but recently stopped in December of 2017. He states that the pain clinic he has attended has not helped much with pain. He would like to gain strength in his legs, improve balance and if possible maybe decrease his LE pain. He has trouble with stairs at home (he has a full flight he does daily with rail ), but would love to get back to doing yard work with less discomfort or issues. He is being seen by Dr. Perea for re-assessments a few times a year Treatment Goals Patient/Caregiver Goals improve mobility, be able to do yard work, improve strength and balance Prior Functional Status Baseline Function- Recreation/Hobbies yard work and mowing his lawn Current Functional Impairments (Reported) Functional Limitations- Recreation/ unable to mow lawn or do yard Hobbies work due to pain Personal Factors Other Personal Factors That May Effect h/o 3 back surgeries, T11 Therapy/Recovery kyphoplasty 2012, bilateral neuropathy, dyskinesia with spasms- aggravated with stress per pt; h/o depression, primary CG for with advanced PD PT-OP-C Subjective Start: 05/04/18 17:51 Freq: Status: Active Protocol: Document 05/23/18 13:45 HH (Rec: 05/23/18 16:15 HH [email or web address]) OP-PT Subjective Patient Comments Patient Comments around the same. but i've been doing my HEP. PT-OP-D Balance Start: 05/04/18 17:51 Freq: Status: Active Protocol: Document 05/11/18 16:01 RCC (Rec: 05/11/18 18:05 RCC [email or web address]) OP-PT Balance Assessment Standing Balance Standing Balance Comments increased weight shift to the R with lateral standing balance on Shuttle Balance ( red) Mao Fall Scale Copyright Permission Mayco PAYNE, Mayco RM, Cynthia SJ. Development of a scale to identify the fall- prone patient. Can J Aging 1989;8;366-7. Alcira Mao (2009). Preventing patient falls. (2nd ed). [place]: [place]. PT-OP-E Functional Tests Start: 05/04/18 17:51 Freq: Status: Active Protocol: Document 05/04/18 16:00 RCC (Rec: 05/07/18 15:33 RCC [email or web address]) Functional Tests Functional Gait Assessment Score 25 Functional Gait Assessment Impairment 1 to <20% Impaired (Score 25- Rating 29) PT-OP-F Manual Assessment Start: 05/04/18 17:51 Freq: Status: Active Protocol: Document 05/04/18 16:00 RCC (Rec: 05/07/18 15:33 RCC [email or web address]) Manual Assessments Soft Tissue Assessment Soft Tissue Mobility Assessment hypertonicity in lumbar paraspinals and QL bilaterally PT-OP-G Mobility & Gait Start: 05/04/18 17:51 Freq: Status: Active Protocol: Document 05/04/18 16:00 RCC (Rec: 05/07/18 15:33 RCC [email or web address]) OP Gait Assessment Gait Deviations General Gait Pattern Antalgic Decreased Stride Length Wide Based Gait Stair Climbing Evaluation Comments Stair Climbing Comments see Functional Gait Assessment PT-OP-H Neuro Start: 05/04/18 17:51 Freq: Status: Active Protocol: Document 05/04/18 16:00 RCC (Rec: 05/07/18 15:33 RCC [email or web address]) Sensation Evaluation Gross Sensation Gross Sensation Left LE Impaired Right LE Impaired Coordination Evaluation Upper Extremity Tests Right Alternate Nose to Finger Test Normal Performance Pronation/Supination Test Normal Performance Left Alternate Nose to Finger Test Normal Performance Pronation/Supination Test Normal Performance Lower Extremity Tests Right Alternate Heel to Knee; Heel to Toe Test Normal Performance Left Alternate Heel to Knee; Heel to Toe Test Normal Performance Deep Tendon Reflex & Clonus Assessment Deep Tendon Reflex Left Patellar Deep Tendon Reflex 0 Absent Right Patellar Deep Tendon Reflex 2+ Normal Bilateral Achilles Deep Tendon Reflex 2+ Normal Ankle Clonus Bilateral Clonus Assessment Absent PT-OP-K Range of Motion Start: 05/04/18 17:51 Freq: Status: Active Protocol: Document 05/04/18 16:00 RCC (Rec: 05/07/18 15:33 RCC [email or web address]) Lumbar Spine Range of Motion Lumbar Spine Active Degrees Testing Position Standing Flexion 60 Extension 10 PT-OP-L Special Tests Start: 05/04/18 17:51 Freq: Status: Active Protocol: Document 05/04/18 16:00 RCC (Rec: 05/07/18 15:33 RCC [email or web address]) Special Tests Lumbar Spine Special Tests Vertical Spine Loading Test Results negative B Manual Traction Test Results no difference B Straight Leg Raise Test Results negative B PT-OP-M Strength Start: 05/04/18 17:51 Freq: Status: Active Protocol: Document 05/04/18 16:00 RCC (Rec: 05/07/18 15:33 RCC [email or web address]) Hip Strength Hip Manual Muscle Testing Right Flexion (L2) 5 Normal Adduction 5 Normal External Rotation 4 Good Internal Rotation 4+ Good+ Left Flexion (L2) 4+ Good+ Adduction 5 Normal External Rotation 4+ Good+ Internal Rotation 4+ Good+ Knee Strength Knee Manual Muscle Testing Right Flexion (S2) 4+ Good+ Extension (L3) 5 Normal Left Flexion (S2) 5 Normal Extension (L3) 5 Normal Ankle/Foot Strength Ankle and Foot Manual Muscle Testing Right Dorsiflexion (L4) 4+ Good+ Plantarflexion (S1) 4 Good Inversion 5 Normal Eversion (S1) 5 Normal Left Dorsiflexion (L4) 5 Normal Plantarflexion (S1) 4 Good Inversion 5 Normal Eversion (S1) 5 Normal Toe Strength Toe Manual Muscle Testing Left Great Toe Extension 5 Normal Right Great Toe Extension 4+ Good+ PT-OP-Q Treatments Start: 05/04/18 17:51 Freq: Status: Active Protocol: Document 05/23/18 13:45 HH (Rec: 05/23/18 16:15 [email or web address]) Cardio Equipment Recumbent Stepper (Sci-Fit) Duration (Minutes) 6 Resistance 2-6-2 Seat Position 12 Gym Equipment Shuttle Balance Red Details normal stance and semi-tandem A/P, lateral WBOS and weight shift Reps/Duration 5 mins Comments stagger stance as well Therapeutic Exercises Supine Exercises hamstring bridge Side bilateral Reps/Minutes 8 x 5 secs hold Comments weight on forefoot glute bridge Side bilateral Reps/Minutes 10 x5 secs hold Comments weight on heels Sitting Exercises squat hold Side bilateral Equipment Used grab bar Reps/Minutes 5 secs hold x 5 Comments UE support on bar Standing Exercises sit to stand Standing Exercise Name chair touch STS Side bilateral Equipment Used grab bar Reps/Minutes 8 x 2 Manual Therapy Treatment Soft Tissue Mobilization ankle ant tib Mobilization Type Strumming Sustained Pressure Trigger Point Release Intensity/Depth Moderate Body Position Supine Manual Techniques HS and calf stretch Body Position Supine Reps/Duration 5 x 2 Comments with ankle DF 1 Type manual sciatic nerve flossing B Body Position Hooklying Reps/Duration x 10 reps each, knee flexion, ankle DF/PF, SLR PT-OP-T Assessment and Plan Start: 05/04/18 17:51 Freq: Status: Active Protocol: Document 05/23/18 13:45 HH (Rec: 05/23/18 16:15 [email or web address]) Physical Therapy Assessment Assessment Summary Assessment Pt cont increase cramping on B calf as activity level increases. Pt also c/o calf pain against pressure during SLR. Pt might have arterial insufficiency and pt report he does have possible heart failure. Today's tx focuses on B LE strengthening and cardio training. Pt reports RPE 5/10 for this session. Physical Therapy Plan Next Visit Focus/Plan Next Note Type Treatment Note Next Visit Plan progress core stability as tolerated, quadriceps and HS strengthening monitor pt's RPE if needed.
--- NOTE | 2018-05-26 15:04 | PT.OTN ---
Current Diagnoses Dystonia, unspecified (05/26/18) Hereditary and idiopathic neuropathy, unspecified (05/26/18) Physical Therapy Treatment Note PT-OP-A Visit Information Start: 05/04/18 17:51 Freq: Status: Active Protocol: Document 05/26/18 14:54 SA (Rec: 05/26/18 15:04 SA [email or web address]) Out-Patient Physical Therapy Visit Information Visit Information Visit Type Treatment Note Visit Start Time 10:30 Visit Stop Time 11:15 Total Visit Minutes 45 Visit Number 6 Number of MAIN ENTREE COOK AND CASHIER Visits 1 PT-OP-B Current Condition Start: 05/04/18 17:51 Freq: Status: Active Protocol: Document 05/04/18 16:00 RCC (Rec: 05/07/18 15:33 RCC [email or web address]) Current Condition History of Current Condition Current Complaints B neuropathy (painful) and low back pain History of Current Condition Pt is a 62 y/o male presenting to physical therapy with a c/ o bilateral LE and low back pain. He reports low back pain is chronic, but LE pain has been worsening due to peripheral neuropathy worsening over the past year. He admits to general lower back and LE cramping and weakness noted in his legs. He does try to work on his stationary bike for 15 min 3 times per week. His has advanced Parkinson's Disease, and does have some CG help but does have to physically assist at home. He admits that he was taking narcotics for pain control but recently stopped in December of 2017. He states that the pain clinic he has attended has not helped much with pain. He would like to gain strength in his legs, improve balance and if possible maybe decrease his LE pain. He has trouble with stairs at home (he has a full flight he does daily with rail ), but would love to get back to doing yard work with less discomfort or issues. He is being seen by Dr. Perea for re-assessments a few times a year Treatment Goals Patient/Caregiver Goals improve mobility, be able to do yard work, improve strength and balance Prior Functional Status Baseline Function- Recreation/Hobbies yard work and mowing his lawn Current Functional Impairments (Reported) Functional Limitations- Recreation/ unable to mow lawn or do yard Hobbies work due to pain Personal Factors Other Personal Factors That May Effect h/o 3 back surgeries, T11 Therapy/Recovery kyphoplasty 2012, bilateral neuropathy, dyskinesia with spasms- aggravated with stress per pt; h/o depression, primary CG for with advanced PD PT-OP-C Subjective Start: 05/04/18 17:51 Freq: Status: Active Protocol: Document 05/26/18 14:54 SA (Rec: 05/26/18 15:04 SA [email or web address]) OP-PT Subjective Patient Comments Patient Comments Pt reports feet and shins are hurting today. HEP is going well, says it feels better to be moving. PT-OP-D Balance Start: 05/04/18 17:51 Freq: Status: Active Protocol: Document 05/11/18 16:01 RCC (Rec: 05/11/18 18:05 RCC [email or web address]) OP-PT Balance Assessment Standing Balance Standing Balance Comments increased weight shift to the R with lateral standing balance on Shuttle Balance ( red) Mao Fall Scale Copyright Permission Mayco PAYNE, Mayco RM, Cynthia SJ. Development of a scale to identify the fall- prone patient. Can J Aging 1989;8;366-7. Alcira Mao (2009). Preventing patient falls. (2nd ed). [place]: Green. PT-OP-E Functional Tests Start: 05/04/18 17:51 Freq: Status: Active Protocol: Document 05/04/18 16:00 RCC (Rec: 05/07/18 15:33 RCC [email or web address]) Functional Tests Functional Gait Assessment Score 25 Functional Gait Assessment Impairment 1 to <20% Impaired (Score 25- Rating 29) PT-OP-F Manual Assessment Start: 05/04/18 17:51 Freq: Status: Active Protocol: Document 05/04/18 16:00 RCC (Rec: 05/07/18 15:33 RCC [email or web address]) Manual Assessments Soft Tissue Assessment Soft Tissue Mobility Assessment hypertonicity in lumbar paraspinals and QL bilaterally PT-OP-G Mobility & Gait Start: 05/04/18 17:51 Freq: Status: Active Protocol: Document 05/04/18 16:00 RCC (Rec: 05/07/18 15:33 RCC [email or web address]) OP Gait Assessment Gait Deviations General Gait Pattern Antalgic Decreased Stride Length Wide Based Gait Stair Climbing Evaluation Comments Stair Climbing Comments see Functional Gait Assessment PT-OP-H Neuro Start: 05/04/18 17:51 Freq: Status: Active Protocol: Document 05/04/18 16:00 RCC (Rec: 05/07/18 15:33 RCC [email or web address]) Sensation Evaluation Gross Sensation Gross Sensation Left LE Impaired Right LE Impaired Coordination Evaluation Upper Extremity Tests Right Alternate Nose to Finger Test Normal Performance Pronation/Supination Test Normal Performance Left Alternate Nose to Finger Test Normal Performance Pronation/Supination Test Normal Performance Lower Extremity Tests Right Alternate Heel to Knee; Heel to Toe Test Normal Performance Left Alternate Heel to Knee; Heel to Toe Test Normal Performance Deep Tendon Reflex & Clonus Assessment Deep Tendon Reflex Left Patellar Deep Tendon Reflex 0 Absent Right Patellar Deep Tendon Reflex 2+ Normal Bilateral Achilles Deep Tendon Reflex 2+ Normal Ankle Clonus Bilateral Clonus Assessment Absent PT-OP-K Range of Motion Start: 05/04/18 17:51 Freq: Status: Active Protocol: Document 05/04/18 16:00 RCC (Rec: 05/07/18 15:33 RCC [email or web address]) Lumbar Spine Range of Motion Lumbar Spine Active Degrees Testing Position Standing Flexion 60 Extension 10 PT-OP-L Special Tests Start: 05/04/18 17:51 Freq: Status: Active Protocol: Document 05/04/18 16:00 RCC (Rec: 05/07/18 15:33 RCC [email or web address]) Special Tests Lumbar Spine Special Tests Vertical Spine Loading Test Results negative B Manual Traction Test Results no difference B Straight Leg Raise Test Results negative B PT-OP-M Strength Start: 05/04/18 17:51 Freq: Status: Active Protocol: Document 05/04/18 16:00 RCC (Rec: 05/07/18 15:33 RCC [email or web address]) Hip Strength Hip Manual Muscle Testing Right Flexion (L2) 5 Normal Adduction 5 Normal External Rotation 4 Good Internal Rotation 4+ Good+ Left Flexion (L2) 4+ Good+ Adduction 5 Normal External Rotation 4+ Good+ Internal Rotation 4+ Good+ Knee Strength Knee Manual Muscle Testing Right Flexion (S2) 4+ Good+ Extension (L3) 5 Normal Left Flexion (S2) 5 Normal Extension (L3) 5 Normal Ankle/Foot Strength Ankle and Foot Manual Muscle Testing Right Dorsiflexion (L4) 4+ Good+ Plantarflexion (S1) 4 Good Inversion 5 Normal Eversion (S1) 5 Normal Left Dorsiflexion (L4) 5 Normal Plantarflexion (S1) 4 Good Inversion 5 Normal Eversion (S1) 5 Normal Toe Strength Toe Manual Muscle Testing Left Great Toe Extension 5 Normal Right Great Toe Extension 4+ Good+ PT-OP-Q Treatments Start: 05/04/18 17:51 Freq: Status: Active Protocol: Document 05/26/18 14:54 SA (Rec: 05/26/18 15:04 [email or web address]) Cardio Equipment Recumbent Stepper (Sci-Fit) Duration (Minutes) 6 Resistance 3.0 Seat Position 12 Gym Equipment Shuttle Balance Red Details normal stance and semi-tandem A/P, lateral WBOS and weight shift Reps/Duration 5 mins Comments tandem, NBOS, head turns, UE movements Therapeutic Exercises Supine Exercises hamstring bridge Side bilateral Reps/Minutes 10 x 5 Comments weight on forefoot glute bridge Side bilateral Reps/Minutes 10 x5 secs hold Comments weight on heels Sitting Exercises squat hold Side bilateral Equipment Used grab bar Reps/Minutes 8 x 5 Comments UE support on bar Standing Exercises sit to stand Standing Exercise Name chair touch STS Side bilateral Equipment Used grab bar Reps/Minutes 8 x 2 tibialis anterior stretch Side bilateral Reps/Minutes x1 min each Comments standing- hip extended and ankle in PF with top of foot resting on floor lateral walks Standing Exercise Name lateral walks Side bilateral Resistance L2 band Reps/Minutes 1 lap each @ balance bar Manual Therapy Treatment Soft Tissue Mobilization ankle ant tib Mobilization Type Strumming Sustained Pressure Trigger Point Release Intensity/Depth Moderate Body Position Supine Manual Techniques HS and calf stretch Body Position Supine Reps/Duration 5 x 2 Comments with ankle DF 1 Type manual sciatic nerve flossing B Body Position Hooklying Reps/Duration x 10 reps each, knee flexion, ankle DF/PF, SLR PT-OP-T Assessment and Plan Start: 05/04/18 17:51 Freq: Status: Active Protocol: Document 05/26/18 14:54 SA (Rec: 05/26/18 15:04 [email or web address]) Physical Therapy Assessment Assessment Summary Assessment Pt states cramping in calf is less but pain in feet and shins is bad today. Tolerated ther ex well, point tender at B tib ant with STM. Physical Therapy Plan Next Visit Focus/Plan Next Note Type Treatment Note Next Visit Plan progress core stability as tolerated, quadriceps and HS strengthening monitor pt's RPE if needed.
--- NOTE | 2018-05-30 15:59 | PT.OTN ---
Current Diagnoses Dystonia, unspecified (05/30/18) Hereditary and idiopathic neuropathy, unspecified (05/30/18) Physical Therapy Treatment Note PT-OP-A Visit Information Start: 05/04/18 17:51 Freq: Status: Active Protocol: Document 05/30/18 15:51 SA (Rec: 05/30/18 15:59 SA [email or web address]) Out-Patient Physical Therapy Visit Information Visit Information Visit Type Treatment Note Visit Start Time 13:00 Visit Stop Time 13:45 Total Visit Minutes 45 Visit Number 7 Number of DIETARY INTERNSHIP Visits 2 PT-OP-B Current Condition Start: 05/04/18 17:51 Freq: Status: Active Protocol: Document 05/04/18 16:00 RCC (Rec: 05/07/18 15:33 RCC [email or web address]) Current Condition History of Current Condition Current Complaints B neuropathy (painful) and low back pain History of Current Condition Pt is a 62 y/o male presenting to physical therapy with a c/ o bilateral LE and low back pain. He reports low back pain is chronic, but LE pain has been worsening due to peripheral neuropathy worsening over the past year. He admits to general lower back and LE cramping and weakness noted in his legs. He does try to work on his stationary bike for 15 min 3 times per week. His has advanced Parkinson's Disease, and does have some CG help but does have to physically assist at home. He admits that he was taking narcotics for pain control but recently stopped in December of 2017. He states that the pain clinic he has attended has not helped much with pain. He would like to gain strength in his legs, improve balance and if possible maybe decrease his LE pain. He has trouble with stairs at home (he has a full flight he does daily with rail ), but would love to get back to doing yard work with less discomfort or issues. He is being seen by Dr. Perea for re-assessments a few times a year Treatment Goals Patient/Caregiver Goals improve mobility, be able to do yard work, improve strength and balance Prior Functional Status Baseline Function- Recreation/Hobbies yard work and mowing his lawn Current Functional Impairments (Reported) Functional Limitations- Recreation/ unable to mow lawn or do yard Hobbies work due to pain Personal Factors Other Personal Factors That May Effect h/o 3 back surgeries, T11 Therapy/Recovery kyphoplasty 2012, bilateral neuropathy, dyskinesia with spasms- aggravated with stress per pt; h/o depression, primary CG for with advanced PD PT-OP-C Subjective Start: 05/04/18 17:51 Freq: Status: Active Protocol: Document 05/30/18 15:51 SA (Rec: 05/30/18 15:59 SA [email or web address]) OP-PT Subjective Patient Comments Patient Comments Pt reports shins/calf feeling a little better today, states his sx change every day with no rhyme or reason. PT-OP-D Balance Start: 05/04/18 17:51 Freq: Status: Active Protocol: Document 05/11/18 16:01 RCC (Rec: 05/11/18 18:05 RCC [email or web address]) OP-PT Balance Assessment Standing Balance Standing Balance Comments increased weight shift to the R with lateral standing balance on Shuttle Balance ( red) Mao Fall Scale Copyright Permission Mayco PAYNE, Mayco RM, Cynthia SJ. Development of a scale to identify the fall- prone patient. Can J Aging 1989;8;366-7. Alcira Mao (2009). Preventing patient falls. (2nd ed). [place]: Green. PT-OP-E Functional Tests Start: 05/04/18 17:51 Freq: Status: Active Protocol: Document 05/04/18 16:00 RCC (Rec: 05/07/18 15:33 RCC [email or web address]) Functional Tests Functional Gait Assessment Score 25 Functional Gait Assessment Impairment 1 to <20% Impaired (Score 25- Rating 29) PT-OP-F Manual Assessment Start: 05/04/18 17:51 Freq: Status: Active Protocol: Document 05/04/18 16:00 RCC (Rec: 05/07/18 15:33 RCC [email or web address]) Manual Assessments Soft Tissue Assessment Soft Tissue Mobility Assessment hypertonicity in lumbar paraspinals and QL bilaterally PT-OP-G Mobility & Gait Start: 05/04/18 17:51 Freq: Status: Active Protocol: Document 05/04/18 16:00 RCC (Rec: 05/07/18 15:33 RCC [email or web address]) OP Gait Assessment Gait Deviations General Gait Pattern Antalgic Decreased Stride Length Wide Based Gait Stair Climbing Evaluation Comments Stair Climbing Comments see Functional Gait Assessment PT-OP-H Neuro Start: 05/04/18 17:51 Freq: Status: Active Protocol: Document 05/04/18 16:00 RCC (Rec: 05/07/18 15:33 RCC [email or web address]) Sensation Evaluation Gross Sensation Gross Sensation Left LE Impaired Right LE Impaired Coordination Evaluation Upper Extremity Tests Right Alternate Nose to Finger Test Normal Performance Pronation/Supination Test Normal Performance Left Alternate Nose to Finger Test Normal Performance Pronation/Supination Test Normal Performance Lower Extremity Tests Right Alternate Heel to Knee; Heel to Toe Test Normal Performance Left Alternate Heel to Knee; Heel to Toe Test Normal Performance Deep Tendon Reflex & Clonus Assessment Deep Tendon Reflex Left Patellar Deep Tendon Reflex 0 Absent Right Patellar Deep Tendon Reflex 2+ Normal Bilateral Achilles Deep Tendon Reflex 2+ Normal Ankle Clonus Bilateral Clonus Assessment Absent PT-OP-K Range of Motion Start: 05/04/18 17:51 Freq: Status: Active Protocol: Document 05/04/18 16:00 RCC (Rec: 05/07/18 15:33 RCC [email or web address]) Lumbar Spine Range of Motion Lumbar Spine Active Degrees Testing Position Standing Flexion 60 Extension 10 PT-OP-L Special Tests Start: 05/04/18 17:51 Freq: Status: Active Protocol: Document 05/04/18 16:00 RCC (Rec: 05/07/18 15:33 RCC [email or web address]) Special Tests Lumbar Spine Special Tests Vertical Spine Loading Test Results negative B Manual Traction Test Results no difference B Straight Leg Raise Test Results negative B PT-OP-M Strength Start: 05/04/18 17:51 Freq: Status: Active Protocol: Document 05/04/18 16:00 RCC (Rec: 05/07/18 15:33 RCC [email or web address]) Hip Strength Hip Manual Muscle Testing Right Flexion (L2) 5 Normal Adduction 5 Normal External Rotation 4 Good Internal Rotation 4+ Good+ Left Flexion (L2) 4+ Good+ Adduction 5 Normal External Rotation 4+ Good+ Internal Rotation 4+ Good+ Knee Strength Knee Manual Muscle Testing Right Flexion (S2) 4+ Good+ Extension (L3) 5 Normal Left Flexion (S2) 5 Normal Extension (L3) 5 Normal Ankle/Foot Strength Ankle and Foot Manual Muscle Testing Right Dorsiflexion (L4) 4+ Good+ Plantarflexion (S1) 4 Good Inversion 5 Normal Eversion (S1) 5 Normal Left Dorsiflexion (L4) 5 Normal Plantarflexion (S1) 4 Good Inversion 5 Normal Eversion (S1) 5 Normal Toe Strength Toe Manual Muscle Testing Left Great Toe Extension 5 Normal Right Great Toe Extension 4+ Good+ PT-OP-Q Treatments Start: 05/04/18 17:51 Freq: Status: Active Protocol: Document 05/30/18 15:51 SA (Rec: 05/30/18 15:59 [email or web address]) Cardio Equipment Recumbent Stepper (Sci-Fit) Duration (Minutes) 6 Resistance 3.2 Seat Position 12 Gym Equipment Shuttle Recovery Unilateral Squats Resistance 50 lbs Shuttle Recovery Platform Stable Reps/Time 2 x 10 Bilateral Squats Resistance 75 lbs Shuttle Recovery Platform Stable Reps/Time 2 x 10 Shuttle Balance Red Details normal stance and semi-tandem A/P, lateral WBOS and weight shift Reps/Duration 6 min Comments tandem, NBOS, head turns, UE movements Therapeutic Exercises Supine Exercises hamstring bridge Side bilateral Reps/Minutes 10 x 5 Comments weight on forefoot glute bridge Side bilateral Reps/Minutes 10 x5 secs hold Comments weight on heels Sitting Exercises squat hold Side bilateral Equipment Used grab bar Reps/Minutes 8 x 5 Comments UE support on bar Standing Exercises sit to stand Standing Exercise Name chair touch STS Side bilateral Equipment Used grab bar Reps/Minutes 2 x 9 tibialis anterior stretch Side bilateral Reps/Minutes x1 min each Comments standing- hip extended and ankle in PF with top of foot resting on floor lateral walks Standing Exercise Name lateral walks Side bilateral Resistance L2 band Reps/Minutes 1 lap each @ balance bar Other Exercises child's pose Side bilateral Reps/Minutes 3x30 sec Manual Therapy Treatment Soft Tissue Mobilization ankle ant tib Mobilization Type Strumming Sustained Pressure Trigger Point Release Intensity/Depth Moderate Body Position Supine Manual Techniques HS and calf stretch Body Position Supine Reps/Duration 5 x 2 Comments with ankle DF PT-OP-T Assessment and Plan Start: 05/04/18 17:51 Freq: Status: Active Protocol: Document 05/30/18 15:51 (Rec: 05/30/18 15:59 [email or web address]) Physical Therapy Assessment Assessment Summary Assessment Pt with decreased lower leg sx and tolerated manual therapy better today, tolerates ther ex well. Physical Therapy Plan Next Visit Focus/Plan Next Note Type Treatment Note Next Visit Plan progress core stability as tolerated, quadriceps and HS strengthening monitor pt's RPE if needed.
--- NOTE | 2018-06-01 14:35 | PT.OTN ---
Current Diagnoses Dystonia, unspecified (06/01/18) Hereditary and idiopathic neuropathy, unspecified (06/01/18) Physical Therapy Treatment Note PT-OP-A Visit Information Start: 05/04/18 17:51 Freq: Status: Active Protocol: Document 06/01/18 14:35 RCC (Rec: 06/01/18 16:04 RCC [email or web address]) Out-Patient Physical Therapy Visit Information Visit Information Visit Type Treatment Note Visit Start Time 14:35 Visit Stop Time 15:15 Total Visit Minutes 40 Visit Number 8 Number of [employer] FORMER Visits 0 Evaluation Information Evaluation Date 05/04/18 PT-OP-B Current Condition Start: 05/04/18 17:51 Freq: Status: Active Protocol: Document 05/04/18 16:00 RCC (Rec: 05/07/18 15:33 RCC [email or web address]) Current Condition History of Current Condition Current Complaints B neuropathy (painful) and low back pain History of Current Condition Pt is a 62 y/o male presenting to physical therapy with a c/ o bilateral LE and low back pain. He reports low back pain is chronic, but LE pain has been worsening due to peripheral neuropathy worsening over the past year. He admits to general lower back and LE cramping and weakness noted in his legs. He does try to work on his stationary bike for 15 min 3 times per week. His has advanced Parkinson's Disease, and does have some CG help but does have to physically assist at home. He admits that he was taking narcotics for pain control but recently stopped in December of 2017. He states that the pain clinic he has attended has not helped much with pain. He would like to gain strength in his legs, improve balance and if possible maybe decrease his LE pain. He has trouble with stairs at home (he has a full flight he does daily with rail ), but would love to get back to doing yard work with less discomfort or issues. He is being seen by Dr. Perea for re-assessments a few times a year Treatment Goals Patient/Caregiver Goals improve mobility, be able to do yard work, improve strength and balance Prior Functional Status Baseline Function- Recreation/Hobbies yard work and mowing his lawn Current Functional Impairments (Reported) Functional Limitations- Recreation/ unable to mow lawn or do yard Hobbies work due to pain Personal Factors Other Personal Factors That May Effect h/o 3 back surgeries, T11 Therapy/Recovery kyphoplasty 2012, bilateral neuropathy, dyskinesia with spasms- aggravated with stress per pt; h/o depression, primary CG for with advanced PD PT-OP-C Subjective Start: 05/04/18 17:51 Freq: Status: Active Protocol: Document 06/01/18 14:35 RCC (Rec: 06/01/18 16:04 RCC [email or web address]) OP-PT Subjective Patient Comments Patient Comments Pt notes that he feels stronger overall with more muscle tone, but still fatigues rapidly. PT-OP-D Balance Start: 05/04/18 17:51 Freq: Status: Active Protocol: Document 05/11/18 16:01 RCC (Rec: 05/11/18 18:05 RCC [email or web address]) OP-PT Balance Assessment Standing Balance Standing Balance Comments increased weight shift to the R with lateral standing balance on Shuttle Balance ( red) Mao Fall Scale Copyright Permission Mayco PAYNE, Mayco RM, Cynthia SJ. Development of a scale to identify the fall- prone patient. Can J Aging 1989;8;366-7. Alcira Mao (2009). Preventing patient falls. (2nd ed). [place]: Green. PT-OP-E Functional Tests Start: 05/04/18 17:51 Freq: Status: Active Protocol: Document 05/04/18 16:00 RCC (Rec: 05/07/18 15:33 RCC [email or web address]) Functional Tests Functional Gait Assessment Score 25 Functional Gait Assessment Impairment 1 to <20% Impaired (Score 25- Rating 29) PT-OP-F Manual Assessment Start: 05/04/18 17:51 Freq: Status: Active Protocol: Document 05/04/18 16:00 RCC (Rec: 05/07/18 15:33 RCC [email or web address]) Manual Assessments Soft Tissue Assessment Soft Tissue Mobility Assessment hypertonicity in lumbar paraspinals and QL bilaterally PT-OP-G Mobility & Gait Start: 05/04/18 17:51 Freq: Status: Active Protocol: Document 05/04/18 16:00 RCC (Rec: 05/07/18 15:33 RCC [email or web address]) OP Gait Assessment Gait Deviations General Gait Pattern Antalgic Decreased Stride Length Wide Based Gait Stair Climbing Evaluation Comments Stair Climbing Comments see Functional Gait Assessment PT-OP-H Neuro Start: 05/04/18 17:51 Freq: Status: Active Protocol: Document 05/04/18 16:00 RCC (Rec: 05/07/18 15:33 RCC [email or web address]) Sensation Evaluation Gross Sensation Gross Sensation Left LE Impaired Right LE Impaired Coordination Evaluation Upper Extremity Tests Right Alternate Nose to Finger Test Normal Performance Pronation/Supination Test Normal Performance Left Alternate Nose to Finger Test Normal Performance Pronation/Supination Test Normal Performance Lower Extremity Tests Right Alternate Heel to Knee; Heel to Toe Test Normal Performance Left Alternate Heel to Knee; Heel to Toe Test Normal Performance Deep Tendon Reflex & Clonus Assessment Deep Tendon Reflex Left Patellar Deep Tendon Reflex 0 Absent Right Patellar Deep Tendon Reflex 2+ Normal Bilateral Achilles Deep Tendon Reflex 2+ Normal Ankle Clonus Bilateral Clonus Assessment Absent PT-OP-K Range of Motion Start: 05/04/18 17:51 Freq: Status: Active Protocol: Document 05/04/18 16:00 RCC (Rec: 05/07/18 15:33 RCC [email or web address]) Lumbar Spine Range of Motion Lumbar Spine Active Degrees Testing Position Standing Flexion 60 Extension 10 PT-OP-L Special Tests Start: 05/04/18 17:51 Freq: Status: Active Protocol: Document 05/04/18 16:00 RCC (Rec: 05/07/18 15:33 RCC [email or web address]) Special Tests Lumbar Spine Special Tests Vertical Spine Loading Test Results negative B Manual Traction Test Results no difference B Straight Leg Raise Test Results negative B PT-OP-M Strength Start: 05/04/18 17:51 Freq: Status: Active Protocol: Document 05/04/18 16:00 RCC (Rec: 05/07/18 15:33 RCC [email or web address]) Hip Strength Hip Manual Muscle Testing Right Flexion (L2) 5 Normal Adduction 5 Normal External Rotation 4 Good Internal Rotation 4+ Good+ Left Flexion (L2) 4+ Good+ Adduction 5 Normal External Rotation 4+ Good+ Internal Rotation 4+ Good+ Knee Strength Knee Manual Muscle Testing Right Flexion (S2) 4+ Good+ Extension (L3) 5 Normal Left Flexion (S2) 5 Normal Extension (L3) 5 Normal Ankle/Foot Strength Ankle and Foot Manual Muscle Testing Right Dorsiflexion (L4) 4+ Good+ Plantarflexion (S1) 4 Good Inversion 5 Normal Eversion (S1) 5 Normal Left Dorsiflexion (L4) 5 Normal Plantarflexion (S1) 4 Good Inversion 5 Normal Eversion (S1) 5 Normal Toe Strength Toe Manual Muscle Testing Left Great Toe Extension 5 Normal Right Great Toe Extension 4+ Good+ PT-OP-Q Treatments Start: 05/04/18 17:51 Freq: Status: Active Protocol: Document 06/01/18 14:35 RCC (Rec: 06/01/18 16:04 [facility] [email or web address]) Gym Equipment Cable Column (Body Solid) Leg Curl Details bilateral, unilateral Resistance 50 lbs, 30 lbs (U) Reps/Time 2x15 Shuttle Recovery Unilateral Squats Resistance 75 lbs Shuttle Recovery Platform Stable Reps/Time 2 x 10 Bilateral Squats Resistance 75 lbs Shuttle Recovery Platform Stable Reps/Time 2 x 10 Shuttle Balance Red Details normal stance and semi-tandem A/P, lateral WBOS and weight shift Reps/Duration 8 min Therapeutic Ball knee flex/extension Exercise Details double knee to chest Ball Size/Color 55 cm Reps/Duration x15 bridging Ball Size/Color 55 cm Reps/Duration x20 LTR Exercise Details lower trunk rotation Ball Size/Color 55 cm Body Position supine feet on ball Reps/Duration x15 each direction Therapeutic Exercises Supine Exercises psoas stretch Supine Exercise Name LE hanging off of EOB Side bilateral Reps/Minutes 3x30 sec each Sidelying Exercises hip abduction Side bilateral Reps/Minutes x10 each Standing Exercises lunges Standing Exercise Name front foot onto BOSU (blue) Side bilateral Reps/Minutes x10 each Comments // bars lateral step up Standing Exercise Name lateral step up on BOSU (blue) Side bilateral Reps/Minutes x10 Comments // bars HC stretch Side bilateral Reps/Minutes 2x1 min Comments SALO PT-OP-T Assessment and Plan Start: 05/04/18 17:51 Freq: Status: Active Protocol: Document 06/01/18 14:35 [facility] (Rec: 06/01/18 16:04 [facility] [email or web address]) Physical Therapy Assessment Assessment Summary Assessment Pt with increased cramping with sidelying abduction today , but otherwise tolerated exercises without much c/o pain or discomfort. Pt challenged with Shuttle Balance and lunges forward onto BOSU due to impaired ankle reaction for balance and fatigue. Physical Therapy Plan Frequency and Duration Frequency of Treatment 2x/Week Duration of Treatment 8 weeks Plan of Care Start Date 05/04/18 Plan of Care End Date 06/29/18 Next Visit Focus/Plan Next Note Type Treatment Note Next Visit Plan progress LE stability, balance reactions as tolerated.
--- NOTE | 2018-06-07 11:20 | PT.OTN ---
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 He reports low back pain is chronic, but LE pain has been worsening due to peripheral neuropathy worsening over the past year. He admits to general lower back and LE cramping and weakness noted in his legs. He does try to work on his stationary bike for 15 min 3 times per week. His has advanced Parkinson's Disease, and does have some CG help but does have to physically assist at home. He admits that he was taking narcotics for pain control but recently stopped in December of 2017. He states that the pain clinic he has attended has not helped much with pain. He would like to gain strength in his legs, improve balance and if possible maybe decrease his LE pain. He has trouble with stairs at home (he has a full flight he does daily with rail ), but would love to get back to doing yard work with less discomfort or issues. He is being seen by Dr. Perea for re-assessments a few times a year Treatment Goals Patient/Caregiver Goals improve mobility, be able to do yard work, improve strength and balance Prior Functional Status Baseline Function- Recreation/Hobbies yard work and mowing his lawn Current Functional Impairments (Reported) Functional Limitations- Recreation/ unable to mow lawn or do yard Hobbies work due to pain Personal Factors Other Personal Factors That May Effect h/o 3 back surgeries, T11 Therapy/Recovery kyphoplasty 2012, bilateral neuropathy, dyskinesia with spasms- aggravated with stress per pt; h/o depression, primary CG for with advanced PD PT-OP-C Subjective Start: 05/04/18 17:51 Freq: Status: Active Protocol: Document 06/07/18 11:20 RCC (Rec: 06/07/18 12:28 RCC [email or web address]) OP-PT Subjective Patient Comments Patient Comments Pt notes that his low back is very tight today and increased in pain with spending time kneeling on the ground working on his 's chair. PT-OP-D Balance Start: 05/04/18 17:51 Freq: Status: Active Protocol: Document 05/11/18 16:01 RCC (Rec: 05/11/18 18:05 RCC [email or web address]) OP-PT Balance Assessment Standing Balance Standing Balance Comments increased weight shift to the R with lateral standing balance on Shuttle Balance ( red) Mao Fall Scale Copyright Permission Mayco PAYNE, Mayco RM, Cynthia SJ. Development of a scale to identify the fall- prone patient. Can J Aging 1989;8;366-7. Alcira Mao (2009). Preventing patient falls. (2nd ed). [place]: Green. PT-OP-E Functional Tests Start: 05/04/18 17:51 Freq: Status: Active Protocol: Document 05/04/18 16:00 RCC (Rec: 05/07/18 15:33 RCC [email or web address]) Functional Tests Functional Gait Assessment Score 25 Functional Gait Assessment Impairment 1 to <20% Impaired (Score 25- Rating 29) PT-OP-F Manual Assessment Start: 05/04/18 17:51 Freq: Status: Active Protocol: Document 06/07/18 11:20 RCC (Rec: 06/07/18 12:28 RCC [email or web address]) Manual Assessments Soft Tissue Assessment Soft Tissue Mobility Assessment Moderate tension bilateral QL, lumbar paraspinals PT-OP-G Mobility & Gait Start: 05/04/18 17:51 Freq: Status: Active Protocol: Document 05/04/18 16:00 RCC (Rec: 05/07/18 15:33 [facility] [email or web address]) OP Gait Assessment Gait Deviations General Gait Pattern Antalgic Decreased Stride Length Wide Based Gait Stair Climbing Evaluation Comments Stair Climbing Comments see Functional Gait Assessment PT-OP-H Neuro Start: 05/04/18 17:51 Freq: Status: Active Protocol: Document 05/04/18 16:00 [facility] (Rec: 05/07/18 15:33 RCC [email or web address]) Sensation Evaluation Gross Sensation Gross Sensation Left LE Impaired Right LE Impaired Coordination Evaluation Upper Extremity Tests Right Alternate Nose to Finger Test Normal Performance Pronation/Supination Test Normal Performance Left Alternate Nose to Finger Test Normal Performance Pronation/Supination Test Normal Performance Lower Extremity Tests Right Alternate Heel to Knee; Heel to Toe Test Normal Performance Left Alternate Heel to Knee; Heel to Toe Test Normal Performance Deep Tendon Reflex & Clonus Assessment Deep Tendon Reflex Left Patellar Deep Tendon Reflex 0 Absent Right Patellar Deep Tendon Reflex 2+ Normal Bilateral Achilles Deep Tendon Reflex 2+ Normal Ankle Clonus Bilateral Clonus Assessment Absent PT-OP-K Range of Motion Start: 05/04/18 17:51 Freq: Status: Active Protocol: Document 05/04/18 16:00 RCC (Rec: 05/07/18 15:33 RCC [email or web address]) Lumbar Spine Range of Motion Lumbar Spine Active Degrees Testing Position Standing Flexion 60 Extension 10 PT-OP-L Special Tests Start: 05/04/18 17:51 Freq: Status: Active Protocol: Document 05/04/18 16:00 RCC (Rec: 05/07/18 15:33 RCC [email or web address]) Special Tests Lumbar Spine Special Tests Vertical Spine Loading Test Results negative B Manual Traction Test Results no difference B Straight Leg Raise Test Results negative B PT-OP-M Strength Start: 05/04/18 17:51 Freq: Status: Active Protocol: Document 05/04/18 16:00 RCC (Rec: 05/07/18 15:33 RCC [email or web address]) Hip Strength Hip Manual Muscle Testing Right Flexion (L2) 5 Normal Adduction 5 Normal External Rotation 4 Good Internal Rotation 4+ Good+ Left Flexion (L2) 4+ Good+ Adduction 5 Normal External Rotation 4+ Good+ Internal Rotation 4+ Good+ Knee Strength Knee Manual Muscle Testing Right Flexion (S2) 4+ Good+ Extension (L3) 5 Normal Left Flexion (S2) 5 Normal Extension (L3) 5 Normal Ankle/Foot Strength Ankle and Foot Manual Muscle Testing Right Dorsiflexion (L4) 4+ Good+ Plantarflexion (S1) 4 Good Inversion 5 Normal Eversion (S1) 5 Normal Left Dorsiflexion (L4) 5 Normal Plantarflexion (S1) 4 Good Inversion 5 Normal Eversion (S1) 5 Normal Toe Strength Toe Manual Muscle Testing Left Great Toe Extension 5 Normal Right Great Toe Extension 4+ Good+ PT-OP-Q Treatments Start: 05/04/18 17:51 Freq: Status: Active Protocol: Document 06/07/18 11:20 [facility] (Rec: 06/07/18 12:28 [facility] [email or web address]) Gym Equipment Shuttle Recovery Unilateral Squats Resistance 62 lbs Shuttle Recovery Platform Stable Reps/Time 2 x 10 Bilateral Squats Resistance 87 lbs Shuttle Recovery Platform Stable Reps/Time 2 x 10 Shuttle Balance Red Details normal stance and semi-tandem A/P, lateral WBOS and weight shift Reps/Duration 6 min Therapeutic Ball knee flex/extension Exercise Details double knee to chest Ball Size/Color 55 cm Reps/Duration x15 bridging Ball Size/Color 55 cm Reps/Duration x10 LTR Exercise Details lower trunk rotation Ball Size/Color 55 cm Body Position supine feet on ball Reps/Duration x15 each direction Therapeutic Exercises Sidelying Exercises lumbar rotation stretch Side bilateral Reps/Minutes 2x3 each Comments gentle Standing Exercises sit to stand Standing Exercise Name chair touch STS Side bilateral Equipment Used grab bar Reps/Minutes x8 Other Exercises Angry Cat Other Exercise Name Angry Cat with pelvic tilt to neutral cow Side bilateral Reps/Minutes x10 Comments quadruped Manual Therapy Treatment Soft Tissue Mobilization Bilateral QL, lumbar paraspinals Mobilization Type Myofascial Release Rolling Trigger Point Release Intensity/Depth Superficial Body Position Sidelying PT-OP-T Assessment and Plan Start: 05/04/18 17:51 Freq: Status: Active Protocol: Document 06/07/18 11:20 [facility] (Rec: 06/07/18 12:28 [facility] [email or web address]) Physical Therapy Assessment Assessment Summary Assessment Pt with R>L trigger points in QL and paraspinals today, but decreased tension with emphasis on PPT in standing with sit<->stand training. Emphasis should be placed on improving core stability with appropriate pelvic alignments, as well as improved standing posture to decrease areas of acute spasm, if able, to improve functional activity level. Physical Therapy Plan Frequency and Duration Frequency of Treatment 2x/Week Duration of Treatment 8 weeks Plan of Care Start Date 05/04/18 Plan of Care End Date 06/29/18 Next Visit Focus/Plan Next Note Type Treatment Note Next Visit Plan emphasis on core stability, pelvic mobility, gluteal strengthening
--- NOTE | 2018-06-09 10:33 | PT.OTN ---
Current Diagnoses Dystonia, unspecified (06/09/18) Hereditary and idiopathic neuropathy, unspecified (06/09/18) Physical Therapy Treatment Note PT-OP-A Visit Information Start: 05/04/18 17:51 Freq: Status: Active Protocol: Document 06/09/18 10:33 RCC (Rec: 06/09/18 13:08 RCC [email or web address]) Out-Patient Physical Therapy Visit Information Visit Information Visit Type Treatment Note Visit Note 03/16 Visit Start Time 10:33 Visit Stop Time 11:15 Total Visit Minutes 42 Visit Number 10 Number of MOLD INSERT CHANGER Visits 0 Evaluation Information Evaluation Date 05/04/18 PT-OP-B Current Condition Start: 05/04/18 17:51 Freq: Status: Active Protocol: Document 05/04/18 16:00 RCC (Rec: 05/07/18 15:33 RCC [email or web address]) Current Condition History of Current Condition Current Complaints B neuropathy (painful) and low back pain History of Current Condition Pt is a 62 y/o male presenting to physical therapy with a c/ o bilateral LE and low back pain. He reports low back pain is chronic, but LE pain has been worsening due to peripheral neuropathy worsening over the past year. He admits to general lower back and LE cramping and weakness noted in his legs. He does try to work on his stationary bike for 15 min 3 times per week. His has advanced Parkinson's Disease, and does have some CG help but does have to physically assist at home. He admits that he was taking narcotics for pain control but recently stopped in December of 2017. He states that the pain clinic he has attended has not helped much with pain. He would like to gain strength in his legs, improve balance and if possible maybe decrease his LE pain. He has trouble with stairs at home (he has a full flight he does daily with rail ), but would love to get back to doing yard work with less discomfort or issues. He is being seen by Dr. Perea for re-assessments a few times a year Treatment Goals Patient/Caregiver Goals improve mobility, be able to do yard work, improve strength and balance Prior Functional Status Baseline Function- Recreation/Hobbies yard work and mowing his lawn Current Functional Impairments (Reported) Functional Limitations- Recreation/ unable to mow lawn or do yard Hobbies work due to pain Personal Factors Other Personal Factors That May Effect h/o 3 back surgeries, T11 Therapy/Recovery kyphoplasty 2012, bilateral neuropathy, dyskinesia with spasms- aggravated with stress per pt; h/o depression, primary CG for with advanced PD PT-OP-C Subjective Start: 05/04/18 17:51 Freq: Status: Active Protocol: Document 06/09/18 10:33 RCC (Rec: 06/09/18 13:08 RCC [email or web address]) OP-PT Subjective Patient Comments Patient Comments Pt states that his back is better after last session, but still with some soreness in his coccyx region from his HEP , which states is soreness not pain. PT-OP-D Balance Start: 05/04/18 17:51 Freq: Status: Active Protocol: Document 05/11/18 16:01 RCC (Rec: 05/11/18 18:05 RCC [email or web address]) OP-PT Balance Assessment Standing Balance Standing Balance Comments increased weight shift to the R with lateral standing balance on Shuttle Balance ( red) Mao Fall Scale Copyright Permission Mayco PAYNE, Mayco RM, Cynthia SJ. Development of a scale to identify the fall- prone patient. Can J Aging 1989;8;366-7. Alcira Mao (2009). Preventing patient falls. (2nd ed). [place]: Green. PT-OP-E Functional Tests Start: 05/04/18 17:51 Freq: Status: Active Protocol: Document 06/09/18 10:33 RCC (Rec: 06/09/18 13:08 RCC [email or web address]) Functional Tests Functional Gait Assessment Score 27 Functional Gait Assessment Impairment 1 to <20% Impaired (Score 25- Rating 29) PT-OP-F Manual Assessment Start: 05/04/18 17:51 Freq: Status: Active Protocol: Document 06/07/18 11:20 RCC (Rec: 06/07/18 12:28 RCC [email or web address]) Manual Assessments Soft Tissue Assessment Soft Tissue Mobility Assessment Moderate tension bilateral QL, lumbar paraspinals PT-OP-G Mobility & Gait Start: 05/04/18 17:51 Freq: Status: Active Protocol: Document 05/04/18 16:00 RCC (Rec: 05/07/18 15:33 RCC [email or web address]) OP Gait Assessment Gait Deviations General Gait Pattern Antalgic Decreased Stride Length Wide Based Gait Stair Climbing Evaluation Comments Stair Climbing Comments see Functional Gait Assessment PT-OP-H Neuro Start: 05/04/18 17:51 Freq: Status: Active Protocol: Document 05/04/18 16:00 RCC (Rec: 05/07/18 15:33 RCC [email or web address]) Sensation Evaluation Gross Sensation Gross Sensation Left LE Impaired Right LE Impaired Coordination Evaluation Upper Extremity Tests Right Alternate Nose to Finger Test Normal Performance Pronation/Supination Test Normal Performance Left Alternate Nose to Finger Test Normal Performance Pronation/Supination Test Normal Performance Lower Extremity Tests Right Alternate Heel to Knee; Heel to Toe Test Normal Performance Left Alternate Heel to Knee; Heel to Toe Test Normal Performance Deep Tendon Reflex & Clonus Assessment Deep Tendon Reflex Left Patellar Deep Tendon Reflex 0 Absent Right Patellar Deep Tendon Reflex 2+ Normal Bilateral Achilles Deep Tendon Reflex 2+ Normal Ankle Clonus Bilateral Clonus Assessment Absent PT-OP-K Range of Motion Start: 05/04/18 17:51 Freq: Status: Active Protocol: Document 05/04/18 16:00 RCC (Rec: 05/07/18 15:33 RCC [email or web address]) Lumbar Spine Range of Motion Lumbar Spine Active Degrees Testing Position Standing Flexion 60 Extension 10 PT-OP-L Special Tests Start: 05/04/18 17:51 Freq: Status: Active Protocol: Document 05/04/18 16:00 RCC (Rec: 05/07/18 15:33 RCC [email or web address]) Special Tests Lumbar Spine Special Tests Vertical Spine Loading Test Results negative B Manual Traction Test Results no difference B Straight Leg Raise Test Results negative B PT-OP-M Strength Start: 05/04/18 17:51 Freq: Status: Active Protocol: Document 05/04/18 16:00 RCC (Rec: 05/07/18 15:33 RCC [email or web address]) Hip Strength Hip Manual Muscle Testing Right Flexion (L2) 5 Normal Adduction 5 Normal External Rotation 4 Good Internal Rotation 4+ Good+ Left Flexion (L2) 4+ Good+ Adduction 5 Normal External Rotation 4+ Good+ Internal Rotation 4+ Good+ Knee Strength Knee Manual Muscle Testing Right Flexion (S2) 4+ Good+ Extension (L3) 5 Normal Left Flexion (S2) 5 Normal Extension (L3) 5 Normal Ankle/Foot Strength Ankle and Foot Manual Muscle Testing Right Dorsiflexion (L4) 4+ Good+ Plantarflexion (S1) 4 Good Inversion 5 Normal Eversion (S1) 5 Normal Left Dorsiflexion (L4) 5 Normal Plantarflexion (S1) 4 Good Inversion 5 Normal Eversion (S1) 5 Normal Toe Strength Toe Manual Muscle Testing Left Great Toe Extension 5 Normal Right Great Toe Extension 4+ Good+ PT-OP-Q Treatments Start: 05/04/18 17:51 Freq: Status: Active Protocol: Document 06/09/18 10:33 RCC (Rec: 06/09/18 13:08 RCC [email or web address]) Gym Equipment Shuttle Recovery Unilateral Squats Resistance 50 lbs Shuttle Recovery Platform Unstable Reps/Time 2 x 10 Bilateral Squats Resistance 75 lbs Shuttle Recovery Platform Unstable Reps/Time 2 x 10 Shuttle Balance Red Details normal stance and semi-tandem A/P, lateral WBOS and weight shift Reps/Duration 8 min Therapeutic Ball knee flex/extension Exercise Details double knee to chest Ball Size/Color 55 cm Reps/Duration x15 bridging Ball Size/Color 55 cm Reps/Duration x10 LTR Exercise Details lower trunk rotation Ball Size/Color 55 cm Body Position supine feet on ball Reps/Duration x15 each direction Therapeutic Exercises Supine Exercises PPT with SLR Supine Exercise Name posterior pelvic tilt with SLR Side bilateral Reps/Minutes x10 each Standing Exercises HC stretch Side bilateral Reps/Minutes 2x1 min Comments SALO HS stretch Side bilateral Reps/Minutes 2x30 sec each Comments stairs Other Exercises hip extension Side bilateral Resistance L2 band Reps/Minutes x10 each Comments tactile cuing for pelvic and postural alignment Angry Cat Other Exercise Name Angry Cat with pelvic tilt to neutral cow Side bilateral Reps/Minutes x10 Comments quadruped child's pose Side bilateral Reps/Minutes 3x30 sec Neuro Re-Education Treatment Other Activities Functional Gait Assessment Comments 7 min PT-OP-T Assessment and Plan Start: 05/04/18 17:51 Freq: Status: Active Protocol: Document 06/09/18 10:33 [facility] (Rec: 06/09/18 13:08 RCC [email or web address]) Physical Therapy Assessment Goals Recreational activities Impairment unable to do yard work due to pain. Short Term Goal (STG) Pt will report being able to do yard work for 30 min with pain rated 2/10 or less. STG Duration 4 weeks Grain Sacker Goal (LTG) Pt will report being able to do yard work for 1 hr with pain rated 2/10 or less prior to d/c. LTG Duration 8 weeks LE strength Impairment LE weakness Long-Term Goal (LTG) Pt with score 5/5 with all LE manual muscle testing prior to d/c to assist with improved tolerance to managing stairs at home. LTG Duration 8 weeks Functional Gait Assessment Impairment Functional Gait Score 25/30 Grain Sacker Goal (LTG) Pt will improve to >27/30 with Functional Gait Assessment score to demonstrate improvements with dynamic standing balance and gait equal to peers of his own age prior to d/c. 06/09/18: 27/30 LTG Duration 8 weeks LEFS Impairment Lower Extremity Functional Scale: 38/80 Short Term Goal (STG) Pt will improve with Lower Extremity Functional scale to 43 or greater, to demonstrate improvements with functional mobility and daily tasks. STG Duration 4 weeks Grain Sacker Goal (LTG) Pt will improve with Lower Extremity Functional scale to 48 or greater, to demonstrate improvements with functional mobility and daily tasks. LTG Duration 8 weeks Assessment Summary Assessment Pt improved from 25/30 to 27/ 30 with Functional Gait Assessment, indicating improvements with functional stability in standing and with gait. Pt still occasionally with increased tension in lower body with exercises but is less frequent. He is improving with physical therapy and would greatly benefit from continuation of POC. Physical Therapy Plan Frequency and Duration Frequency of Treatment 2x/Week Duration of Treatment 8 weeks Plan of Care Start Date 05/04/18 Plan of Care End Date 06/29/18 Next Visit Focus/Plan Next Note Type Treatment Note Next Visit Plan core stabilization, standing balance training
--- NOTE | 2018-06-14 10:35 | PT.OTN ---
Current Diagnoses Dystonia, unspecified (06/14/18) Hereditary and idiopathic neuropathy, unspecified (06/14/18) Physical Therapy Treatment Note PT-OP-A Visit Information Start: 05/04/18 17:51 Freq: Status: Active Protocol: Document 06/14/18 10:35 RCC (Rec: 06/14/18 11:39 RCC [email or web address]) Out-Patient Physical Therapy Visit Information Visit Information Visit Type Treatment Note Visit Note 04/16 Visit Start Time 10:35 Visit Stop Time 11:16 Total Visit Minutes 41 Visit Number 11 Number of HERPETOLOGIST Visits 0 Evaluation Information Evaluation Date 05/04/18 PT-OP-B Current Condition Start: 05/04/18 17:51 Freq: Status: Active Protocol: Document 05/04/18 16:00 RCC (Rec: 05/07/18 15:33 RCC [email or web address]) Current Condition History of Current Condition Current Complaints B neuropathy (painful) and low back pain History of Current Condition Pt is a 62 y/o male presenting to physical therapy with a c/ o bilateral LE and low back pain. He reports low back pain is chronic, but LE pain has been worsening due to peripheral neuropathy worsening over the past year. He admits to general lower back and LE cramping and weakness noted in his legs. He does try to work on his stationary bike for 15 min 3 times per week. His has advanced Parkinson's Disease, and does have some CG help but does have to physically assist at home. He admits that he was taking narcotics for pain control but recently stopped in December of 2017. He states that the pain clinic he has attended has not helped much with pain. He would like to gain strength in his legs, improve balance and if possible maybe decrease his LE pain. He has trouble with stairs at home (he has a full flight he does daily with rail ), but would love to get back to doing yard work with less discomfort or issues. He is being seen by Dr. Perea for re-assessments a few times a year Treatment Goals Patient/Caregiver Goals improve mobility, be able to do yard work, improve strength and balance Prior Functional Status Baseline Function- Recreation/Hobbies yard work and mowing his lawn Current Functional Impairments (Reported) Functional Limitations- Recreation/ unable to mow lawn or do yard Hobbies work due to pain Personal Factors Other Personal Factors That May Effect h/o 3 back surgeries, T11 Therapy/Recovery kyphoplasty 2012, bilateral neuropathy, dyskinesia with spasms- aggravated with stress per pt; h/o depression, primary CG for with advanced PD PT-OP-C Subjective Start: 05/04/18 17:51 Freq: Status: Active Protocol: Document 06/14/18 10:35 RCC (Rec: 06/14/18 11:38 RCC [email or web address]) OP-PT Subjective Patient Comments Patient Comments Pt notes that he is doing his HEP and has noticed he has had decreased tightening of muscles during yard work PT-OP-D Balance Start: 05/04/18 17:51 Freq: Status: Active Protocol: Document 05/11/18 16:01 RCC (Rec: 05/11/18 18:05 RCC [email or web address]) OP-PT Balance Assessment Standing Balance Standing Balance Comments increased weight shift to the R with lateral standing balance on Shuttle Balance ( red) Mao Fall Scale Copyright Permission Mayco PAYNE, Mayco RM, Cynthia SJ. Development of a scale to identify the fall- prone patient. Can J Aging 1989;8;366-7. Alcira Mao (2009). Preventing patient falls. (2nd ed). [place]: [place]. PT-OP-E Functional Tests Start: 05/04/18 17:51 Freq: Status: Active Protocol: Document 06/09/18 10:33 RCC (Rec: 06/09/18 13:08 RCC [email or web address]) Functional Tests Functional Gait Assessment Score 27 Functional Gait Assessment Impairment 1 to <20% Impaired (Score 25- Rating 29) PT-OP-F Manual Assessment Start: 05/04/18 17:51 Freq: Status: Active Protocol: Document 06/07/18 11:20 RCC (Rec: 06/07/18 12:28 RCC [email or web address]) Manual Assessments Soft Tissue Assessment Soft Tissue Mobility Assessment Moderate tension bilateral QL, lumbar paraspinals PT-OP-G Mobility & Gait Start: 05/04/18 17:51 Freq: Status: Active Protocol: Document 05/04/18 16:00 RCC (Rec: 05/07/18 15:33 RCC [email or web address]) OP Gait Assessment Gait Deviations General Gait Pattern Antalgic Decreased Stride Length Wide Based Gait Stair Climbing Evaluation Comments Stair Climbing Comments see Functional Gait Assessment PT-OP-H Neuro Start: 05/04/18 17:51 Freq: Status: Active Protocol: Document 05/04/18 16:00 RCC (Rec: 05/07/18 15:33 RCC [email or web address]) Sensation Evaluation Gross Sensation Gross Sensation Left LE Impaired Right LE Impaired Coordination Evaluation Upper Extremity Tests Right Alternate Nose to Finger Test Normal Performance Pronation/Supination Test Normal Performance Left Alternate Nose to Finger Test Normal Performance Pronation/Supination Test Normal Performance Lower Extremity Tests Right Alternate Heel to Knee; Heel to Toe Test Normal Performance Left Alternate Heel to Knee; Heel to Toe Test Normal Performance Deep Tendon Reflex & Clonus Assessment Deep Tendon Reflex Left Patellar Deep Tendon Reflex 0 Absent Right Patellar Deep Tendon Reflex 2+ Normal Bilateral Achilles Deep Tendon Reflex 2+ Normal Ankle Clonus Bilateral Clonus Assessment Absent PT-OP-K Range of Motion Start: 05/04/18 17:51 Freq: Status: Active Protocol: Document 05/04/18 16:00 RCC (Rec: 05/07/18 15:33 RCC [email or web address]) Lumbar Spine Range of Motion Lumbar Spine Active Degrees Testing Position Standing Flexion 60 Extension 10 PT-OP-L Special Tests Start: 05/04/18 17:51 Freq: Status: Active Protocol: Document 05/04/18 16:00 RCC (Rec: 05/07/18 15:33 RCC [email or web address]) Special Tests Lumbar Spine Special Tests Vertical Spine Loading Test Results negative B Manual Traction Test Results no difference B Straight Leg Raise Test Results negative B PT-OP-M Strength Start: 05/04/18 17:51 Freq: Status: Active Protocol: Document 05/04/18 16:00 RCC (Rec: 05/07/18 15:33 RCC [email or web address]) Hip Strength Hip Manual Muscle Testing Right Flexion (L2) 5 Normal Adduction 5 Normal External Rotation 4 Good Internal Rotation 4+ Good+ Left Flexion (L2) 4+ Good+ Adduction 5 Normal External Rotation 4+ Good+ Internal Rotation 4+ Good+ Knee Strength Knee Manual Muscle Testing Right Flexion (S2) 4+ Good+ Extension (L3) 5 Normal Left Flexion (S2) 5 Normal Extension (L3) 5 Normal Ankle/Foot Strength Ankle and Foot Manual Muscle Testing Right Dorsiflexion (L4) 4+ Good+ Plantarflexion (S1) 4 Good Inversion 5 Normal Eversion (S1) 5 Normal Left Dorsiflexion (L4) 5 Normal Plantarflexion (S1) 4 Good Inversion 5 Normal Eversion (S1) 5 Normal Toe Strength Toe Manual Muscle Testing Left Great Toe Extension 5 Normal Right Great Toe Extension 4+ Good+ PT-OP-Q Treatments Start: 05/04/18 17:51 Freq: Status: Active Protocol: Document 06/14/18 10:35 [facility] (Rec: 06/14/18 11:38 RCC [email or web address]) Gym Equipment Cable Column (Body Solid) Rows Details with TA activation- backward lunge and squat position Resistance 20 lbs Reps/Time x10 each position Lat Pull Down Details with TA activation Resistance 40 lbs Reps/Time x25 Shuttle Recovery Unilateral Squats Resistance 50 lbs Shuttle Recovery Platform Unstable Reps/Time 2 x 10 Bilateral Squats Resistance 87 lbs Shuttle Recovery Platform Unstable Reps/Time 2 x 10 Shuttle Balance Red Details normal stance and semi-tandem A/P, lateral WBOS and weight shift Reps/Duration 12 min Therapeutic Ball knee flex/extension Exercise Details double knee to chest Ball Size/Color 55 cm Reps/Duration x15 bridging Ball Size/Color 55 cm Reps/Duration x10 LTR Exercise Details lower trunk rotation Ball Size/Color 55 cm Body Position supine feet on ball Reps/Duration x15 each direction Therapeutic Exercises Supine Exercises bridge Supine Exercise Name B up and unilateral down Side bilateral Reps/Minutes 10 each Standing Exercises Tricpes push down Standing Exercise Name with PPT and staggered stance Side bilateral Resistance L4 Reps/Minutes 10 each LE forward HC stretch Side bilateral Reps/Minutes 2x1 min Comments stairs HS stretch Side bilateral Reps/Minutes 2x30 sec each Comments stairs PT-OP-T Assessment and Plan Start: 05/04/18 17:51 Freq: Status: Active Protocol: Document 06/14/18 10:35 [facility] (Rec: 06/14/18 11:38 RCC [email or web address]) Physical Therapy Assessment Assessment Summary Assessment Pt continues to have occasional episodes of muscular spasm with activities , particularly in the HS and gastroc/soleus, although only x1 in the L HS today. Pt requires reminders for PPT with standing posture and exercises. Physical Therapy Plan Frequency and Duration Frequency of Treatment 2x/Week Duration of Treatment 8 weeks Plan of Care Start Date 05/04/18 Plan of Care End Date 06/29/18 Next Visit Focus/Plan Next Note Type Progress Note Next Visit Plan re-assess obj measures (seeing 06/28/18)
--- NOTE | 2018-06-21 11:47 | PT.OTN ---
Current Diagnoses Dystonia, unspecified (06/21/18) Hereditary and idiopathic neuropathy, unspecified (06/21/18) Physical Therapy Treatment Note PT-OP-A Visit Information Start: 05/04/18 17:51 Freq: Status: Active Protocol: Document 06/21/18 10:30 HH (Rec: 06/21/18 11:47 HH [email or web address]) Out-Patient Physical Therapy Visit Information Visit Information Visit Type Treatment Note Visit Note 05/14 Visit Start Time 10:30 Visit Stop Time 11:15 Total Visit Minutes 45 Visit Number 12 Number of TAX CREDIT LEASING CONSULTANT Visits 0 PT-OP-B Current Condition Start: 05/04/18 17:51 Freq: Status: Active Protocol: Document 05/04/18 16:00 RCC (Rec: 05/07/18 15:33 RCC [email or web address]) Current Condition History of Current Condition Current Complaints B neuropathy (painful) and low back pain History of Current Condition Pt is a 62 y/o male presenting to physical therapy with a c/ o bilateral LE and low back pain. He reports low back pain is chronic, but LE pain has been worsening due to peripheral neuropathy worsening over the past year. He admits to general lower back and LE cramping and weakness noted in his legs. He does try to work on his stationary bike for 15 min 3 times per week. His has advanced Parkinson's Disease, and does have some CG help but does have to physically assist at home. He admits that he was taking narcotics for pain control but recently stopped in December of 2017. He states that the pain clinic he has attended has not helped much with pain. He would like to gain strength in his legs, improve balance and if possible maybe decrease his LE pain. He has trouble with stairs at home (he has a full flight he does daily with rail ), but would love to get back to doing yard work with less discomfort or issues. He is being seen by Dr. Perea for re-assessments a few times a year Treatment Goals Patient/Caregiver Goals improve mobility, be able to do yard work, improve strength and balance Prior Functional Status Baseline Function- Recreation/Hobbies yard work and mowing his lawn Current Functional Impairments (Reported) Functional Limitations- Recreation/ unable to mow lawn or do yard Hobbies work due to pain Personal Factors Other Personal Factors That May Effect h/o 3 back surgeries, T11 Therapy/Recovery kyphoplasty 2012, bilateral neuropathy, dyskinesia with spasms- aggravated with stress per pt; h/o depression, primary CG for with advanced PD PT-OP-C Subjective Start: 05/04/18 17:51 Freq: Status: Active Protocol: Document 06/21/18 10:30 HH (Rec: 06/21/18 11:47 HH [email or web address]) OP-PT Subjective Patient Comments Patient Comments Pt c/o negotiating stairs still causes quad and calf tightness. He is now able to do yardwork for 45 mins. PT-OP-D Balance Start: 05/04/18 17:51 Freq: Status: Active Protocol: Document 05/11/18 16:01 RCC (Rec: 05/11/18 18:05 RCC [email or web address]) OP-PT Balance Assessment Standing Balance Standing Balance Comments increased weight shift to the R with lateral standing balance on Shuttle Balance ( red) Mao Fall Scale Copyright Permission Mayco PAYNE, Mayco RM, Cynthia SJ. Development of a scale to identify the fall- prone patient. Can J Aging 1989;8;366-7. Alcira Mao (2009). Preventing patient falls. (2nd ed). [place]: Green. PT-OP-E Functional Tests Start: 05/04/18 17:51 Freq: Status: Active Protocol: Document 06/09/18 10:33 RCC (Rec: 06/09/18 13:08 RCC [email or web address]) Functional Tests Functional Gait Assessment Score 27 Functional Gait Assessment Impairment 1 to <20% Impaired (Score 25- Rating 29) PT-OP-F Manual Assessment Start: 05/04/18 17:51 Freq: Status: Active Protocol: Document 06/07/18 11:20 RCC (Rec: 06/07/18 12:28 RCC [email or web address]) Manual Assessments Soft Tissue Assessment Soft Tissue Mobility Assessment Moderate tension bilateral QL, lumbar paraspinals PT-OP-G Mobility & Gait Start: 05/04/18 17:51 Freq: Status: Active Protocol: Document 05/04/18 16:00 RCC (Rec: 05/07/18 15:33 RCC [email or web address]) OP Gait Assessment Gait Deviations General Gait Pattern Antalgic Decreased Stride Length Wide Based Gait Stair Climbing Evaluation Comments Stair Climbing Comments see Functional Gait Assessment PT-OP-H Neuro Start: 05/04/18 17:51 Freq: Status: Active Protocol: Document 05/04/18 16:00 RCC (Rec: 05/07/18 15:33 RCC [email or web address]) Sensation Evaluation Gross Sensation Gross Sensation Left LE Impaired Right LE Impaired Coordination Evaluation Upper Extremity Tests Right Alternate Nose to Finger Test Normal Performance Pronation/Supination Test Normal Performance Left Alternate Nose to Finger Test Normal Performance Pronation/Supination Test Normal Performance Lower Extremity Tests Right Alternate Heel to Knee; Heel to Toe Test Normal Performance Left Alternate Heel to Knee; Heel to Toe Test Normal Performance Deep Tendon Reflex & Clonus Assessment Deep Tendon Reflex Left Patellar Deep Tendon Reflex 0 Absent Right Patellar Deep Tendon Reflex 2+ Normal Bilateral Achilles Deep Tendon Reflex 2+ Normal Ankle Clonus Bilateral Clonus Assessment Absent PT-OP-K Range of Motion Start: 05/04/18 17:51 Freq: Status: Active Protocol: Document 05/04/18 16:00 RCC (Rec: 05/07/18 15:33 RCC [email or web address]) Lumbar Spine Range of Motion Lumbar Spine Active Degrees Testing Position Standing Flexion 60 Extension 10 PT-OP-L Special Tests Start: 05/04/18 17:51 Freq: Status: Active Protocol: Document 05/04/18 16:00 RCC (Rec: 05/07/18 15:33 RCC [email or web address]) Special Tests Lumbar Spine Special Tests Vertical Spine Loading Test Results negative B Manual Traction Test Results no difference B Straight Leg Raise Test Results negative B PT-OP-M Strength Start: 05/04/18 17:51 Freq: Status: Active Protocol: Document 05/04/18 16:00 RCC (Rec: 05/07/18 15:33 RCC [email or web address]) Hip Strength Hip Manual Muscle Testing Right Flexion (L2) 5 Normal Adduction 5 Normal External Rotation 4 Good Internal Rotation 4+ Good+ Left Flexion (L2) 4+ Good+ Adduction 5 Normal External Rotation 4+ Good+ Internal Rotation 4+ Good+ Knee Strength Knee Manual Muscle Testing Right Flexion (S2) 4+ Good+ Extension (L3) 5 Normal Left Flexion (S2) 5 Normal Extension (L3) 5 Normal Ankle/Foot Strength Ankle and Foot Manual Muscle Testing Right Dorsiflexion (L4) 4+ Good+ Plantarflexion (S1) 4 Good Inversion 5 Normal Eversion (S1) 5 Normal Left Dorsiflexion (L4) 5 Normal Plantarflexion (S1) 4 Good Inversion 5 Normal Eversion (S1) 5 Normal Toe Strength Toe Manual Muscle Testing Left Great Toe Extension 5 Normal Right Great Toe Extension 4+ Good+ PT-OP-Q Treatments Start: 05/04/18 17:51 Freq: Status: Active Protocol: Document 06/21/18 10:30 HH (Rec: 06/21/18 11:47 HH [email or web address]) Cardio Equipment Recumbent Stepper (Sci-Fit) Duration (Minutes) 6 Resistance 7 Recumbent Bicycle Duration (Minutes) 5 Resistance 6 Gym Equipment Cable Column (Body Solid) Rows Details with TA activation- backward lunge and squat position Resistance 20 lbs Reps/Time x10 each position Lat Pull Down Details with TA activation Resistance 40 lbs Reps/Time x25 Shuttle Recovery Unilateral Squats Resistance 75 lbs Shuttle Recovery Platform Unstable Reps/Time 10,8,6,4,2 Bilateral Squats Resistance 100 lbs Shuttle Recovery Platform Unstable Reps/Time 10,8,6,4,2 Therapeutic Exercises Sitting Exercises squat hold Side bilateral Equipment Used grab bar Comments 10 secs hold Standing Exercises pelvic rotation Side bilateral Reps/Minutes 20 x2 PPT Side bilateral Reps/Minutes 20 x2 sit to stand Standing Exercise Name chair touch STS Side bilateral Equipment Used grab bar Comments 8 secs down , 1 second up PT-OP-T Assessment and Plan Start: 05/04/18 17:51 Freq: Status: Active Protocol: Document 06/21/18 10:30 HH (Rec: 06/21/18 11:47 HH [email or web address]) Physical Therapy Assessment Assessment Summary Assessment Pt's RPE for this session is 6 -7/10 with leg press and bodyweight squat rated as hardest. But feel good overall. Pt continues to have occasional episodes of muscular spasm with activities possibly due to his peripheral neuropathy and possible chronic cardiac problem. Adding a walking program into POC might be beneficial to pt Physical Therapy Plan Next Visit Focus/Plan Next Note Type Progress Note Next Visit Plan re-assess obj measures (seeing 06/28/18)
--- NOTE | 2018-06-28 13:26 | PT.OTN ---
Current Diagnoses Dystonia, unspecified (06/28/18) Hereditary and idiopathic neuropathy, unspecified (06/28/18) Physical Therapy Treatment Note PT-OP-A Visit Information Start: 05/04/18 17:51 Freq: Status: Active Protocol: Document 06/28/18 12:00 GGD (Rec: 06/28/18 12:38 GGD [email or web address]) Out-Patient Physical Therapy Visit Information Visit Information Visit Type Treatment Note Visit Note 06/14 Visit Start Time 11:15 Visit Stop Time 12:00 Total Visit Minutes 45 Visit Number 13 Number of DRAPERY ESTIMATOR Visits 1 Evaluation Information Evaluation Date 05/04/18 PT-OP-B Current Condition Start: 05/04/18 17:51 Freq: Status: Active Protocol: Document 05/04/18 16:00 RCC (Rec: 05/07/18 15:33 RCC [email or web address]) Current Condition History of Current Condition Current Complaints B neuropathy (painful) and low back pain History of Current Condition Pt is a 62 y/o male presenting to physical therapy with a c/ o bilateral LE and low back pain. He reports low back pain is chronic, but LE pain has been worsening due to peripheral neuropathy worsening over the past year. He admits to general lower back and LE cramping and weakness noted in his legs. He does try to work on his stationary bike for 15 min 3 times per week. His has advanced Parkinson's Disease, and does have some CG help but does have to physically assist at home. He admits that he was taking narcotics for pain control but recently stopped in December of 2017. He states that the pain clinic he has attended has not helped much with pain. He would like to gain strength in his legs, improve balance and if possible maybe decrease his LE pain. He has trouble with stairs at home (he has a full flight he does daily with rail ), but would love to get back to doing yard work with less discomfort or issues. He is being seen by Dr. Perea for re-assessments a few times a year Treatment Goals Patient/Caregiver Goals improve mobility, be able to do yard work, improve strength and balance Prior Functional Status Baseline Function- Recreation/Hobbies yard work and mowing his lawn Current Functional Impairments (Reported) Functional Limitations- Recreation/ unable to mow lawn or do yard Hobbies work due to pain Personal Factors Other Personal Factors That May Effect h/o 3 back surgeries, T11 Therapy/Recovery kyphoplasty 2012, bilateral neuropathy, dyskinesia with spasms- aggravated with stress per pt; h/o depression, primary CG for with advanced PD PT-OP-C Subjective Start: 05/04/18 17:51 Freq: Status: Active Protocol: Document 06/28/18 12:00 GGD (Rec: 06/28/18 12:38 GGD [email or web address]) OP-PT Subjective Patient Comments Patient Comments Pt states his feet have been painful the last few days. Patient Questionnaires Lower Extremity Functional Scale LEFS Score 48 LEFS Impairment 20 to 39% Impaired (Score 48- 62) PT-OP-D Balance Start: 05/04/18 17:51 Freq: Status: Active Protocol: Document 05/11/18 16:01 RCC (Rec: 05/11/18 18:05 RCC [email or web address]) OP-PT Balance Assessment Standing Balance Standing Balance Comments increased weight shift to the R with lateral standing balance on Shuttle Balance ( red) Mao Fall Scale Copyright Permission Mayco PAYNE, Mayco RM, Cynthia SJ. Development of a scale to identify the fall- prone patient. Can J Aging 1989;8;366-7. Alcira Mao (2009). Preventing patient falls. (2nd ed). Sullivan: Green. PT-OP-E Functional Tests Start: 05/04/18 17:51 Freq: Status: Active Protocol: Document 06/28/18 12:00 GGD (Rec: 06/28/18 12:38 GGD [email or web address]) Functional Tests Functional Gait Assessment Score 27 Functional Gait Assessment Impairment 1 to <20% Impaired (Score 25- Rating 29) PT-OP-F Manual Assessment Start: 05/04/18 17:51 Freq: Status: Active Protocol: Document 06/07/18 11:20 RCC (Rec: 06/07/18 12:28 RCC [email or web address]) Manual Assessments Soft Tissue Assessment Soft Tissue Mobility Assessment Moderate tension bilateral QL, lumbar paraspinals PT-OP-G Mobility & Gait Start: 05/04/18 17:51 Freq: Status: Active Protocol: Document 05/04/18 16:00 RCC (Rec: 05/07/18 15:33 RCC [email or web address]) OP Gait Assessment Gait Deviations General Gait Pattern Antalgic Decreased Stride Length Wide Based Gait Stair Climbing Evaluation Comments Stair Climbing Comments see Functional Gait Assessment PT-OP-H Neuro Start: 05/04/18 17:51 Freq: Status: Active Protocol: Document 05/04/18 16:00 RCC (Rec: 05/07/18 15:33 RCC [email or web address]) Sensation Evaluation Gross Sensation Gross Sensation Left LE Impaired Right LE Impaired Coordination Evaluation Upper Extremity Tests Right Alternate Nose to Finger Test Normal Performance Pronation/Supination Test Normal Performance Left Alternate Nose to Finger Test Normal Performance Pronation/Supination Test Normal Performance Lower Extremity Tests Right Alternate Heel to Knee; Heel to Toe Test Normal Performance Left Alternate Heel to Knee; Heel to Toe Test Normal Performance Deep Tendon Reflex & Clonus Assessment Deep Tendon Reflex Left Patellar Deep Tendon Reflex 0 Absent Right Patellar Deep Tendon Reflex 2+ Normal Bilateral Achilles Deep Tendon Reflex 2+ Normal Ankle Clonus Bilateral Clonus Assessment Absent PT-OP-K Range of Motion Start: 05/04/18 17:51 Freq: Status: Active Protocol: Document 05/04/18 16:00 RCC (Rec: 05/07/18 15:33 RCC [email or web address]) Lumbar Spine Range of Motion Lumbar Spine Active Degrees Testing Position Standing Flexion 60 Extension 10 PT-OP-L Special Tests Start: 05/04/18 17:51 Freq: Status: Active Protocol: Document 05/04/18 16:00 RCC (Rec: 05/07/18 15:33 RCC [email or web address]) Special Tests Lumbar Spine Special Tests Vertical Spine Loading Test Results negative B Manual Traction Test Results no difference B Straight Leg Raise Test Results negative B PT-OP-M Strength Start: 05/04/18 17:51 Freq: Status: Active Protocol: Document 05/04/18 16:00 RCC (Rec: 05/07/18 15:33 RCC [email or web address]) Hip Strength Hip Manual Muscle Testing Right Flexion (L2) 5 Normal Adduction 5 Normal External Rotation 4 Good Internal Rotation 4+ Good+ Left Flexion (L2) 4+ Good+ Adduction 5 Normal External Rotation 4+ Good+ Internal Rotation 4+ Good+ Knee Strength Knee Manual Muscle Testing Right Flexion (S2) 4+ Good+ Extension (L3) 5 Normal Left Flexion (S2) 5 Normal Extension (L3) 5 Normal Ankle/Foot Strength Ankle and Foot Manual Muscle Testing Right Dorsiflexion (L4) 4+ Good+ Plantarflexion (S1) 4 Good Inversion 5 Normal Eversion (S1) 5 Normal Left Dorsiflexion (L4) 5 Normal Plantarflexion (S1) 4 Good Inversion 5 Normal Eversion (S1) 5 Normal Toe Strength Toe Manual Muscle Testing Left Great Toe Extension 5 Normal Right Great Toe Extension 4+ Good+ PT-OP-Q Treatments Start: 05/04/18 17:51 Freq: Status: Active Protocol: Document 06/28/18 12:00 GGD (Rec: 06/28/18 12:38 GGD [email or web address]) Cardio Equipment Recumbent Stepper (Sci-Fit) Duration (Minutes) 6 Resistance 7 Gym Equipment Cable Column (Body Solid) Rows Details with TA activation- backward lunge and squat position Resistance 20 lbs Reps/Time x10 each position Lat Pull Down Details with TA activation Resistance 40 lbs Reps/Time x25 Shuttle Recovery Unilateral Squats Resistance 67 lbs Shuttle Recovery Platform Unstable Reps/Time 2 x 10 Bilateral Squats Resistance 87 lbs Shuttle Recovery Platform Unstable Reps/Time 2 x 10 Therapeutic Ball knee flex/extension Exercise Details double knee to chest Ball Size/Color 55 cm Reps/Duration x15 bridging Ball Size/Color 55 cm Reps/Duration x10 LTR Exercise Details lower trunk rotation Ball Size/Color 55 cm Body Position supine feet on ball Reps/Duration x15 each direction Therapeutic Exercises Supine Exercises bridge Supine Exercise Name B up and unilateral down Side bilateral Reps/Minutes 10 each Neuro Re-Education Treatment Other Activities Functional Gait Assessment Comments 7 min PT-OP-T Assessment and Plan Start: 05/04/18 17:51 Freq: Status: Active Protocol: Document 06/28/18 12:00 GGD (Rec: 06/28/18 12:38 GGD [email or web address]) Physical Therapy Assessment Goals Recreational activities Impairment unable to do yard work due to pain. Short Term Goal (STG) Pt will report being able to do yard work for 30 min with pain rated 2/10 or less. ( Pt able to do 45 min of yard work with increase pain to 6/10) STG Duration 4 weeks [employer] Pump Operator Helper Goal (LTG) Pt will report being able to do yard work for 1 hr with pain rated 2/10 or less prior to d/c. LTG Duration 8 weeks LE strength Impairment LE weakness Detention Goal (LTG) Pt with score 5/5 with all LE manual muscle testing prior to d/c to assist with improved tolerance to managing stairs at home. LTG Duration 8 weeks Functional Gait Assessment Impairment Functional Gait Score 25/30 Detention Goal (LTG) Pt will improve to >27/30 with Functional Gait Assessment score to demonstrate improvements with dynamic standing balance and gait equal to peers of his own age prior to d/c. 06/09/18: 06/28/18: LTG Duration 8 weeks LEFS Impairment Lower Extremity Functional Scale: 38/80 Short Term Goal (STG) Pt will improve with Lower Extremity Functional scale to 43 or greater, to demonstrate improvements with functional mobility and daily tasks. 06/28/18 achieved STG Duration 4 weeks Detention Goal (LTG) Pt will improve with Lower Extremity Functional scale to 48 or greater, to demonstrate improvements with functional mobility and daily tasks. 06/28/18: 48/80 LTG Duration 8 weeks Assessment Summary Assessment Pt improved from 38/80 to 48/ 80 with LEFS indicating improvements with functional mobility and ADLS. Pt still has increased in pain with yard work, but able to progress time. He is still need improvements in strengthening. Physical Therapy Plan Frequency and Duration Frequency of Treatment 2x/Week Duration of Treatment 8 weeks Plan of Care Start Date 06/28/18 Plan of Care End Date 08/16/18 Next Visit Focus/Plan Next Note Type Treatment Note Next Visit Plan core stabilization, standing balance training
--- NOTE | 2018-06-28 14:28 | PT.OPPOC ---
Current Diagnoses Dystonia, unspecified (06/28/18) Hereditary and idiopathic neuropathy, unspecified (06/28/18) Provider Visit Care Team Role Provider Type Frankie Martinez MD Primary Care Provider Physician Specialty: Internal Medicine Address: [address] [place] [address], [id number] Email: [email or web address] Latonya Perea MD Attending Provider Non-Staff Specialty: Neurology Address: [address] [place] [address], [id number] Email: Plan Of Care PT-OP-T Assessment and Plan Start: 05/04/18 17:51 Freq: Status: Active Protocol: Document 06/28/18 12:00 GGD (Rec: 06/28/18 12:38 GGD [email or web address]) Physical Therapy Assessment Goals Recreational activities Impairment unable to do yard work due to pain. Short Term Goal (STG) Pt will report being able to do yard work for 30 min with pain rated 2/10 or less. ( Pt able to do 45 min of yard work with increase pain to 6/10) STG Duration 4 weeks Healthcare Administrative Assistant Goal (LTG) Pt will report being able to do yard work for 1 hr with pain rated 2/10 or less prior to d/c. LTG Duration 8 weeks LE strength Impairment LE weakness Healthcare Administrative Assistant Goal (LTG) Pt with score 5/5 with all LE manual muscle testing prior to d/c to assist with improved tolerance to managing stairs at home. LTG Duration 8 weeks Functional Gait Assessment Impairment Functional Gait Score 25/30 Healthcare Administrative Assistant Goal (LTG) Pt will improve to >27/30 with Functional Gait Assessment score to demonstrate improvements with dynamic standing balance and gait equal to peers of his own age prior to d/c. 06/09/18: 06/28/18: LTG Duration 8 weeks LEFS Impairment Lower Extremity Functional Scale: 38/80 Short Term Goal (STG) Pt will improve with Lower Extremity Functional scale to 43 or greater, to demonstrate improvements with functional mobility and daily tasks. 06/28/18 achieved STG Duration 4 weeks [facility] Goal (LTG) Pt will improve with Lower Extremity Functional scale to 48 or greater, to demonstrate improvements with functional mobility and daily tasks. 06/28/18: 48/80 LTG Duration 8 weeks Assessment Summary Assessment Pt improved from 38/80 to 48/ 80 with LEFS indicating improvements with functional mobility and ADLS. Pt still has increased in pain with yard work, but able to progress time. He is still need improvements in strengthening. Physical Therapy Plan Frequency and Duration Frequency of Treatment 2x/Week Duration of Treatment 8 weeks Plan of Care Start Date 06/28/18 Plan of Care End Date 08/16/18 Next Visit Focus/Plan Next Note Type Treatment Note Next Visit Plan core stabilization, standing balance training Plan of Care Dates Plan of Care Start Date 06/28/18 Plan of Care End Date 08/16/18 Please Sign and Return: I have reviewed this Plan of Care and certify that the skilled therapy services above are required to meet the patient?s needs. Physician Signature Date Printed Name and Credentials Clinical Instructor Signature Printed Name and Credentials
--- NOTE | 2018-07-04 17:48 | PT.OTN ---
Current Diagnoses Dystonia, unspecified (07/04/18) Hereditary and idiopathic neuropathy, unspecified (07/04/18) Physical Therapy Treatment Note PT-OP-A Visit Information Start: 05/04/18 17:51 Freq: Status: Active Protocol: Document 07/04/18 16:55 LR (Rec: 07/04/18 17:48 [facility] [id number]) Out-Patient Physical Therapy Visit Information Visit Information Visit Type Treatment Note Visit Note 07/14 Visit Start Time 16:50 Visit Stop Time 17:30 Total Visit Minutes 40 Visit Number 14 Number of COPY MESSENGER Visits 1 PT-OP-B Current Condition Start: 05/04/18 17:51 Freq: Status: Active Protocol: Document 05/04/18 16:00 RCC (Rec: 05/07/18 15:33 RCC [email or web address]) Current Condition History of Current Condition Current Complaints B neuropathy (painful) and low back pain History of Current Condition Pt is a 62 y/o male presenting to physical therapy with a c/ o bilateral LE and low back pain. He reports low back pain is chronic, but LE pain has been worsening due to peripheral neuropathy worsening over the past year. He admits to general lower back and LE cramping and weakness noted in his legs. He does try to work on his stationary bike for 15 min 3 times per week. His has advanced Parkinson's Disease, and does have some CG help but does have to physically assist at home. He admits that he was taking narcotics for pain control but recently stopped in December of 2017. He states that the pain clinic he has attended has not helped much with pain. He would like to gain strength in his legs, improve balance and if possible maybe decrease his LE pain. He has trouble with stairs at home (he has a full flight he does daily with rail ), but would love to get back to doing yard work with less discomfort or issues. He is being seen by Dr. Perea for re-assessments a few times a year Treatment Goals Patient/Caregiver Goals improve mobility, be able to do yard work, improve strength and balance Prior Functional Status Baseline Function- Recreation/Hobbies yard work and mowing his lawn Current Functional Impairments (Reported) Functional Limitations- Recreation/ unable to mow lawn or do yard Hobbies work due to pain Personal Factors Other Personal Factors That May Effect h/o 3 back surgeries, T11 Therapy/Recovery kyphoplasty 2012, bilateral neuropathy, dyskinesia with spasms- aggravated with stress per pt; h/o depression, primary CG for with advanced PD PT-OP-C Subjective Start: 05/04/18 17:51 Freq: Status: Active Protocol: Document 07/04/18 16:55 [facility] (Rec: 07/04/18 17:48 [facility] [id number]) OP-PT Subjective Patient Comments Patient Comments Pt reports stairs a a big problem for him. His legs freeze up for him. Pt reports he feels like his balance is good but his feet are so painful that he wobbles around . PT-OP-D Balance Start: 05/04/18 17:51 Freq: Status: Active Protocol: Document 05/11/18 16:01 RCC (Rec: 05/11/18 18:05 RCC [email or web address]) OP-PT Balance Assessment Standing Balance Standing Balance Comments increased weight shift to the R with lateral standing balance on Shuttle Balance ( red) Mayco Fall Scale Copyright Permission Mayco PAYNE, Mayco RM, Cynthia SJ. Development of a scale to identify the fall- prone patient. Can J Aging 1989;8;366-7. Alcira Mao (2009). Preventing patient falls. (2nd ed). Harper: Green. PT-OP-E Functional Tests Start: 05/04/18 17:51 Freq: Status: Active Protocol: Document 06/28/18 12:00 GGD (Rec: 06/28/18 12:38 GGD [email or web address]) Functional Tests Functional Gait Assessment Score 27 Functional Gait Assessment Impairment 1 to <20% Impaired (Score 25- Rating 29) PT-OP-F Manual Assessment Start: 05/04/18 17:51 Freq: Status: Active Protocol: Document 06/07/18 11:20 RCC (Rec: 06/07/18 12:28 RCC [email or web address]) Manual Assessments Soft Tissue Assessment Soft Tissue Mobility Assessment Moderate tension bilateral QL, lumbar paraspinals PT-OP-G Mobility & Gait Start: 05/04/18 17:51 Freq: Status: Active Protocol: Document 05/04/18 16:00 RCC (Rec: 05/07/18 15:33 RCC [email or web address]) OP Gait Assessment Gait Deviations General Gait Pattern Antalgic Decreased Stride Length Wide Based Gait Stair Climbing Evaluation Comments Stair Climbing Comments see Functional Gait Assessment PT-OP-H Neuro Start: 05/04/18 17:51 Freq: Status: Active Protocol: Document 05/04/18 16:00 RCC (Rec: 05/07/18 15:33 RCC [email or web address]) Sensation Evaluation Gross Sensation Gross Sensation Left LE Impaired Right LE Impaired Coordination Evaluation Upper Extremity Tests Right Alternate Nose to Finger Test Normal Performance Pronation/Supination Test Normal Performance Left Alternate Nose to Finger Test Normal Performance Pronation/Supination Test Normal Performance Lower Extremity Tests Right Alternate Heel to Knee; Heel to Toe Test Normal Performance Left Alternate Heel to Knee; Heel to Toe Test Normal Performance Deep Tendon Reflex & Clonus Assessment Deep Tendon Reflex Left Patellar Deep Tendon Reflex 0 Absent Right Patellar Deep Tendon Reflex 2+ Normal Bilateral Achilles Deep Tendon Reflex 2+ Normal Ankle Clonus Bilateral Clonus Assessment Absent PT-OP-K Range of Motion Start: 05/04/18 17:51 Freq: Status: Active Protocol: Document 05/04/18 16:00 RCC (Rec: 05/07/18 15:33 RCC [email or web address]) Lumbar Spine Range of Motion Lumbar Spine Active Degrees Testing Position Standing Flexion 60 Extension 10 PT-OP-L Special Tests Start: 05/04/18 17:51 Freq: Status: Active Protocol: Document 05/04/18 16:00 RCC (Rec: 05/07/18 15:33 RCC [email or web address]) Special Tests Lumbar Spine Special Tests Vertical Spine Loading Test Results negative B Manual Traction Test Results no difference B Straight Leg Raise Test Results negative B PT-OP-M Strength Start: 05/04/18 17:51 Freq: Status: Active Protocol: Document 05/04/18 16:00 RCC (Rec: 05/07/18 15:33 RCC [email or web address]) Hip Strength Hip Manual Muscle Testing Right Flexion (L2) 5 Normal Adduction 5 Normal External Rotation 4 Good Internal Rotation 4+ Good+ Left Flexion (L2) 4+ Good+ Adduction 5 Normal External Rotation 4+ Good+ Internal Rotation 4+ Good+ Knee Strength Knee Manual Muscle Testing Right Flexion (S2) 4+ Good+ Extension (L3) 5 Normal Left Flexion (S2) 5 Normal Extension (L3) 5 Normal Ankle/Foot Strength Ankle and Foot Manual Muscle Testing Right Dorsiflexion (L4) 4+ Good+ Plantarflexion (S1) 4 Good Inversion 5 Normal Eversion (S1) 5 Normal Left Dorsiflexion (L4) 5 Normal Plantarflexion (S1) 4 Good Inversion 5 Normal Eversion (S1) 5 Normal Toe Strength Toe Manual Muscle Testing Left Great Toe Extension 5 Normal Right Great Toe Extension 4+ Good+ PT-OP-Q Treatments Start: 05/04/18 17:51 Freq: Status: Active Protocol: Document 07/04/18 16:55 [facility] (Rec: 07/04/18 17:48 [facility] [id number]) Cardio Equipment Recumbent Stepper (Sci-Fit) Duration (Minutes) 6 Resistance 3-6.5 Gym Equipment Cable Column (Body Solid) Rows Details with TA activation- backward lunge and squat position Resistance 20 lbs Reps/Time x10 each position Lat Pull Down Details with TA activation Resistance 40 lbs Reps/Time x25 Shuttle Recovery Unilateral Squats Resistance 67 lbs Shuttle Recovery Platform Unstable Reps/Time 2 x 10 Bilateral Squats Resistance 125 lbs Shuttle Recovery Platform Stable Reps/Time 2 x 10 Shuttle Balance Red Details red Comments while hitting balloon: fwd: WBOS, NBOS & staggered stance; side: WBOS & NBOS Therapeutic Ball seated Exercise Details marches & kicks Ball Size/Color 65 cm Body Position Sitting Reps/Duration 15 B ea Therapeutic Exercises Supine Exercises 1 Supine Exercise Name up/down 26 steps with rail Equipment Used SBA Standing Exercises HC stretch Side bilateral Reps/Minutes 1 min Comments SALO HS stretch Side bilateral Reps/Minutes 2x30 sec each Comments stairs Neuro Re-Education Treatment Balance Activities step ups on bosu Details bosu step up Reps/Duration 8 B rail prn PT-OP-T Assessment and Plan Start: 05/04/18 17:51 Freq: Status: Active Protocol: Document 07/04/18 16:55 [facility] (Rec: 07/04/18 17:48 [facility] [id number]) Physical Therapy Assessment Goals Recreational activities Impairment unable to do yard work due to pain. Short Term Goal (STG) Pt will report being able to do yard work for 30 min with pain rated 2/10 or less. ( Pt able to do 45 min of yard work with increase pain to 6/10) STG Duration 4 weeks [employer]iconductor Bonder Goal (LTG) Pt will report being able to do yard work for 1 hr with pain rated 2/10 or less prior to d/c. LTG Duration 8 weeks LE strength Impairment LE weakness [employer] Bonder Goal (LTG) Pt with score 5/5 with all LE manual muscle testing prior to d/c to assist with improved tolerance to managing stairs at home. LTG Duration 8 weeks Functional Gait Assessment Impairment Functional Gait Score 25/30 [employer] Bonder Goal (LTG) Pt will improve to >27/30 with Functional Gait Assessment score to demonstrate improvements with dynamic standing balance and gait equal to peers of his own age prior to d/c. 06/09/18: 06/28/18: LTG Duration 8 weeks LEFS Impairment Lower Extremity Functional Scale: 38/80 Short Term Goal (STG) Pt will improve with Lower Extremity Functional scale to 43 or greater, to demonstrate improvements with functional mobility and daily tasks. 06/28/18 achieved STG Duration 4 weeks [employer] Bonder Goal (LTG) Pt will improve with Lower Extremity Functional scale to 48 or greater, to demonstrate improvements with functional mobility and daily tasks. 06/28/18: 48/80 LTG Duration 8 weeks Assessment Summary Assessment Pt educated on importance of holding home stretches for 30 sec. He was able to ascend 26 stairs today with use of rail, but did fatigue with activity . He was able to tolerate a significant amount of WB activity but WB and seated activities were alternated to reduce pain of feet. Physical Therapy Plan Frequency and Duration Frequency of Treatment 2x/Week Duration of Treatment 8 weeks Plan of Care Start Date 06/28/18 Plan of Care End Date 08/16/18 Next Visit Focus/Plan Next Note Type Treatment Note Next Visit Plan core stabilization, standing balance training
--- NOTE | 2018-07-12 13:45 | PT.OTN ---
Current Diagnoses Dystonia, unspecified (07/12/18) Hereditary and idiopathic neuropathy, unspecified (07/12/18) Physical Therapy Treatment Note PT-OP-A Visit Information Start: 05/04/18 17:51 Freq: Status: Active Protocol: Document 07/12/18 13:45 [facility] (Rec: 07/12/18 17:44 [facility] [email or web address]) Out-Patient Physical Therapy Visit Information Visit Information Visit Type Treatment Note Visit Note 08/14 Visit Start Time 13:45 Visit Stop Time 14:30 Total Visit Minutes 45 Visit Number 15 Number of [employer]TACT [employer] HELPER Visits 0 Evaluation Information Evaluation Date 05/04/18 PT-OP-B Current Condition Start: 05/04/18 17:51 Freq: Status: Active Protocol: Document 05/04/18 16:00 RCC (Rec: 05/07/18 15:33 RCC [email or web address]) Current Condition History of Current Condition Current Complaints B neuropathy (painful) and low back pain History of Current Condition Pt is a 62 y/o male presenting to physical therapy with a c/ o bilateral LE and low back pain. He reports low back pain is chronic, but LE pain has been worsening due to peripheral neuropathy worsening over the past year. He admits to general lower back and LE cramping and weakness noted in his legs. He does try to work on his stationary bike for 15 min 3 times per week. His has advanced Parkinson's Disease, and does have some CG help but does have to physically assist at home. He admits that he was taking narcotics for pain control but recently stopped in December of 2017. He states that the pain clinic he has attended has not helped much with pain. He would like to gain strength in his legs, improve balance and if possible maybe decrease his LE pain. He has trouble with stairs at home (he has a full flight he does daily with rail ), but would love to get back to doing yard work with less discomfort or issues. He is being seen by Dr. Perea for re-assessments a few times a year Treatment Goals Patient/Caregiver Goals improve mobility, be able to do yard work, improve strength and balance Prior Functional Status Baseline Function- Recreation/Hobbies yard work and mowing his lawn Current Functional Impairments (Reported) Functional Limitations- Recreation/ unable to mow lawn or do yard Hobbies work due to pain Personal Factors Other Personal Factors That May Effect h/o 3 back surgeries, T11 Therapy/Recovery kyphoplasty 2012, bilateral neuropathy, dyskinesia with spasms- aggravated with stress per pt; h/o depression, primary CG for with advanced PD PT-OP-C Subjective Start: 05/04/18 17:51 Freq: Status: Active Protocol: Document 07/12/18 13:45 RCC (Rec: 07/12/18 17:44 RCC [email or web address]) OP-PT Subjective Patient Comments Patient Comments Pt states that he had a good workout last session, with no other new complaints. PT-OP-D Balance Start: 05/04/18 17:51 Freq: Status: Active Protocol: Document 05/11/18 16:01 RCC (Rec: 05/11/18 18:05 [facility] [email or web address]) OP-PT Balance Assessment Standing Balance Standing Balance Comments increased weight shift to the R with lateral standing balance on Shuttle Balance ( red) Mao Fall Scale Copyright Permission Mayco PAYNE, Mayco RM, Cynthia SJ. Development of a scale to identify the fall- prone patient. Can J Aging 1989;8;366-7. Alcira Mao (2009). Preventing patient falls. (2nd ed). [place]: Green. PT-OP-E Functional Tests Start: 05/04/18 17:51 Freq: Status: Active Protocol: Document 06/28/18 12:00 GGD (Rec: 06/28/18 12:38 GGD [email or web address]) Functional Tests Functional Gait Assessment Score 27 Functional Gait Assessment Impairment 1 to <20% Impaired (Score 25- Rating 29) PT-OP-F Manual Assessment Start: 05/04/18 17:51 Freq: Status: Active Protocol: Document 06/07/18 11:20 RCC (Rec: 06/07/18 12:28 RCC [email or web address]) Manual Assessments Soft Tissue Assessment Soft Tissue Mobility Assessment Moderate tension bilateral QL, lumbar paraspinals PT-OP-G Mobility & Gait Start: 05/04/18 17:51 Freq: Status: Active Protocol: Document 05/04/18 16:00 RCC (Rec: 05/07/18 15:33 RCC [email or web address]) OP Gait Assessment Gait Deviations General Gait Pattern Antalgic Decreased Stride Length Wide Based Gait Stair Climbing Evaluation Comments Stair Climbing Comments see Functional Gait Assessment PT-OP-H Neuro Start: 05/04/18 17:51 Freq: Status: Active Protocol: Document 05/04/18 16:00 RCC (Rec: 05/07/18 15:33 RCC [email or web address]) Sensation Evaluation Gross Sensation Gross Sensation Left LE Impaired Right LE Impaired Coordination Evaluation Upper Extremity Tests Right Alternate Nose to Finger Test Normal Performance Pronation/Supination Test Normal Performance Left Alternate Nose to Finger Test Normal Performance Pronation/Supination Test Normal Performance Lower Extremity Tests Right Alternate Heel to Knee; Heel to Toe Test Normal Performance Left Alternate Heel to Knee; Heel to Toe Test Normal Performance Deep Tendon Reflex & Clonus Assessment Deep Tendon Reflex Left Patellar Deep Tendon Reflex 0 Absent Right Patellar Deep Tendon Reflex 2+ Normal Bilateral Achilles Deep Tendon Reflex 2+ Normal Ankle Clonus Bilateral Clonus Assessment Absent PT-OP-K Range of Motion Start: 05/04/18 17:51 Freq: Status: Active Protocol: Document 05/04/18 16:00 [facility] (Rec: 05/07/18 15:33 RCC [email or web address]) Lumbar Spine Range of Motion Lumbar Spine Active Degrees Testing Position Standing Flexion 60 Extension 10 PT-OP-L Special Tests Start: 05/04/18 17:51 Freq: Status: Active Protocol: Document 05/04/18 16:00 [facility] (Rec: 05/07/18 15:33 RCC [email or web address]) Special Tests Lumbar Spine Special Tests Vertical Spine Loading Test Results negative B Manual Traction Test Results no difference B Straight Leg Raise Test Results negative B PT-OP-M Strength Start: 05/04/18 17:51 Freq: Status: Active Protocol: Document 05/04/18 16:00 RCC (Rec: 05/07/18 15:33 RCC [email or web address]) Hip Strength Hip Manual Muscle Testing Right Flexion (L2) 5 Normal Adduction 5 Normal External Rotation 4 Good Internal Rotation 4+ Good+ Left Flexion (L2) 4+ Good+ Adduction 5 Normal External Rotation 4+ Good+ Internal Rotation 4+ Good+ Knee Strength Knee Manual Muscle Testing Right Flexion (S2) 4+ Good+ Extension (L3) 5 Normal Left Flexion (S2) 5 Normal Extension (L3) 5 Normal Ankle/Foot Strength Ankle and Foot Manual Muscle Testing Right Dorsiflexion (L4) 4+ Good+ Plantarflexion (S1) 4 Good Inversion 5 Normal Eversion (S1) 5 Normal Left Dorsiflexion (L4) 5 Normal Plantarflexion (S1) 4 Good Inversion 5 Normal Eversion (S1) 5 Normal Toe Strength Toe Manual Muscle Testing Left Great Toe Extension 5 Normal Right Great Toe Extension 4+ Good+ PT-OP-Q Treatments Start: 05/04/18 17:51 Freq: Status: Active Protocol: Document 07/12/18 13:45 RCC (Rec: 07/12/18 17:44 RCC [email or web address]) Cardio Equipment Recumbent Stepper (Sci-Fit) Duration (Minutes) 8 Resistance 4 Gym Equipment Cable Column (Body Solid) Rows Details seated Resistance 50 lbs Reps/Time x15 Lat Pull Down Details with TA activation Resistance 50 lbs Reps/Time x20 Shuttle Recovery Unilateral Squats Resistance 67 lbs Shuttle Recovery Platform Unstable Reps/Time 2 x 10 Bilateral Squats Resistance 125 lbs Shuttle Recovery Platform Unstable Reps/Time 2 x 10 Shuttle Balance Red Details red Comments while hitting balloon: fwd: WBOS, NBOS & staggered stance; side: WBOS & NBOS Therapeutic Exercises Standing Exercises 3 way hip Standing Exercise Name hip- flexion (march), extension, abduction Side bilateral Resistance 4 lb AW Equipment Used // bars Reps/Minutes x10 each lateral step ups Standing Exercise Name 8 steps with rail Side bilateral Reps/Minutes x10 each stairs Standing Exercise Name up/down 26 steps with unilat rail Side bilateral Reps/Minutes 2 sets psoas stretch Side bilateral Resistance stairs Reps/Minutes 2x30 sec each HC stretch Side bilateral Reps/Minutes 1 min Comments SALO HS stretch Side bilateral Reps/Minutes 2x30 sec each Comments stairs Neuro Re-Education Treatment Balance Activities step ups on bosu Details bosu step up Reps/Duration x10 each LE PT-OP-T Assessment and Plan Start: 05/04/18 17:51 Freq: Status: Active Protocol: Document 07/12/18 13:45 [facility] (Rec: 07/12/18 17:44 RCC [email or web address]) Physical Therapy Assessment Assessment Summary Assessment Pt with improved pelvic control with VC ascending stairs, but does require a hand rail. Discussed options of stretching intermittently between bouts of stair management when at home ( multiple loads from car after shopping). Pt had good tempo of activity today, minor cramping only in R hip with SL resisted marching. Physical Therapy Plan Frequency and Duration Frequency of Treatment 2x/Week Duration of Treatment 8 weeks Plan of Care Start Date 06/28/18 Plan of Care End Date 08/16/18 Next Visit Focus/Plan Next Note Type Treatment Note Next Visit Plan standing balance- dynamic, and cont to progress LE stability .
--- NOTE | 2018-07-19 16:00 | PT.OTN ---
Current Diagnoses Dystonia, unspecified (07/19/18) Hereditary and idiopathic neuropathy, unspecified (07/19/18) Physical Therapy Treatment Note PT-OP-A Visit Information Start: 05/04/18 17:51 Freq: Status: Active Protocol: Document 07/19/18 16:00 RCC (Rec: 07/20/18 16:06 RCC [email or web address]) Out-Patient Physical Therapy Visit Information Visit Information Visit Type Treatment Note Visit Note 09/13 Visit Start Time 16:00 Visit Stop Time 16:44 Total Visit Minutes 44 Visit Number 16 Number of CHICKEN HANGER Visits 0 Evaluation Information Evaluation Date 05/04/18 PT-OP-B Current Condition Start: 05/04/18 17:51 Freq: Status: Active Protocol: Document 05/04/18 16:00 RCC (Rec: 05/07/18 15:33 RCC [email or web address]) Current Condition History of Current Condition Current Complaints B neuropathy (painful) and low back pain History of Current Condition Pt is a 62 y/o male presenting to physical therapy with a c/ o bilateral LE and low back pain. He reports low back pain is chronic, but LE pain has been worsening due to peripheral neuropathy worsening over the past year. He admits to general lower back and LE cramping and weakness noted in his legs. He does try to work on his stationary bike for 15 min 3 times per week. His has advanced Parkinson's Disease, and does have some CG help but does have to physically assist at home. He admits that he was taking narcotics for pain control but recently stopped in December of 2017. He states that the pain clinic he has attended has not helped much with pain. He would like to gain strength in his legs, improve balance and if possible maybe decrease his LE pain. He has trouble with stairs at home (he has a full flight he does daily with rail ), but would love to get back to doing yard work with less discomfort or issues. He is being seen by Dr. Perea for re-assessments a few times a year Treatment Goals Patient/Caregiver Goals improve mobility, be able to do yard work, improve strength and balance Prior Functional Status Baseline Function- Recreation/Hobbies yard work and mowing his lawn Current Functional Impairments (Reported) Functional Limitations- Recreation/ unable to mow lawn or do yard Hobbies work due to pain Personal Factors Other Personal Factors That May Effect h/o 3 back surgeries, T11 Therapy/Recovery kyphoplasty 2012, bilateral neuropathy, dyskinesia with spasms- aggravated with stress per pt; h/o depression, primary CG for with advanced PD PT-OP-C Subjective Start: 05/04/18 17:51 Freq: Status: Active Protocol: Document 07/19/18 16:00 [facility] (Rec: 07/20/18 16:06 RCC [email or web address]) OP-PT Subjective Patient Comments Patient Comments Pt reports his back is tight and painful today. No cause of injury, just one of those days. PT-OP-D Balance Start: 05/04/18 17:51 Freq: Status: Active Protocol: Document 05/11/18 16:01 RCC (Rec: 05/11/18 18:05 RCC [email or web address]) OP-PT Balance Assessment Standing Balance Standing Balance Comments increased weight shift to the R with lateral standing balance on Shuttle Balance ( red) Mao Fall Scale Copyright Permission Mayco PAYNE, Mayco RM, Cynthia SJ. Development of a scale to identify the fall- prone patient. Can J Aging 1989;8;366-7. Alcira Mao (2009). Preventing patient falls. (2nd ed). [place]: Green. PT-OP-E Functional Tests Start: 05/04/18 17:51 Freq: Status: Active Protocol: Document 06/28/18 12:00 GGD (Rec: 06/28/18 12:38 GGD [email or web address]) Functional Tests Functional Gait Assessment Score 27 Functional Gait Assessment Impairment 1 to <20% Impaired (Score 25- Rating 29) PT-OP-F Manual Assessment Start: 05/04/18 17:51 Freq: Status: Active Protocol: Document 06/07/18 11:20 RCC (Rec: 06/07/18 12:28 RCC [email or web address]) Manual Assessments Soft Tissue Assessment Soft Tissue Mobility Assessment Moderate tension bilateral QL, lumbar paraspinals PT-OP-G Mobility & Gait Start: 05/04/18 17:51 Freq: Status: Active Protocol: Document 05/04/18 16:00 RCC (Rec: 05/07/18 15:33 RCC [email or web address]) OP Gait Assessment Gait Deviations General Gait Pattern Antalgic Decreased Stride Length Wide Based Gait Stair Climbing Evaluation Comments Stair Climbing Comments see Functional Gait Assessment PT-OP-H Neuro Start: 05/04/18 17:51 Freq: Status: Active Protocol: Document 05/04/18 16:00 RCC (Rec: 05/07/18 15:33 RCC [email or web address]) Sensation Evaluation Gross Sensation Gross Sensation Left LE Impaired Right LE Impaired Coordination Evaluation Upper Extremity Tests Right Alternate Nose to Finger Test Normal Performance Pronation/Supination Test Normal Performance Left Alternate Nose to Finger Test Normal Performance Pronation/Supination Test Normal Performance Lower Extremity Tests Right Alternate Heel to Knee; Heel to Toe Test Normal Performance Left Alternate Heel to Knee; Heel to Toe Test Normal Performance Deep Tendon Reflex & Clonus Assessment Deep Tendon Reflex Left Patellar Deep Tendon Reflex 0 Absent Right Patellar Deep Tendon Reflex 2+ Normal Bilateral Achilles Deep Tendon Reflex 2+ Normal Ankle Clonus Bilateral Clonus Assessment Absent PT-OP-K Range of Motion Start: 05/04/18 17:51 Freq: Status: Active Protocol: Document 05/04/18 16:00 RCC (Rec: 05/07/18 15:33 RCC [email or web address]) Lumbar Spine Range of Motion Lumbar Spine Active Degrees Testing Position Standing Flexion 60 Extension 10 PT-OP-L Special Tests Start: 05/04/18 17:51 Freq: Status: Active Protocol: Document 05/04/18 16:00 RCC (Rec: 05/07/18 15:33 RCC [email or web address]) Special Tests Lumbar Spine Special Tests Vertical Spine Loading Test Results negative B Manual Traction Test Results no difference B Straight Leg Raise Test Results negative B PT-OP-M Strength Start: 05/04/18 17:51 Freq: Status: Active Protocol: Document 05/04/18 16:00 RCC (Rec: 05/07/18 15:33 RCC [email or web address]) Hip Strength Hip Manual Muscle Testing Right Flexion (L2) 5 Normal Adduction 5 Normal External Rotation 4 Good Internal Rotation 4+ Good+ Left Flexion (L2) 4+ Good+ Adduction 5 Normal External Rotation 4+ Good+ Internal Rotation 4+ Good+ Knee Strength Knee Manual Muscle Testing Right Flexion (S2) 4+ Good+ Extension (L3) 5 Normal Left Flexion (S2) 5 Normal Extension (L3) 5 Normal Ankle/Foot Strength Ankle and Foot Manual Muscle Testing Right Dorsiflexion (L4) 4+ Good+ Plantarflexion (S1) 4 Good Inversion 5 Normal Eversion (S1) 5 Normal Left Dorsiflexion (L4) 5 Normal Plantarflexion (S1) 4 Good Inversion 5 Normal Eversion (S1) 5 Normal Toe Strength Toe Manual Muscle Testing Left Great Toe Extension 5 Normal Right Great Toe Extension 4+ Good+ PT-OP-Q Treatments Start: 05/04/18 17:51 Freq: Status: Active Protocol: Document 07/19/18 16:00 [facility] (Rec: 07/20/18 16:06 [facility] [email or web address]) Cardio Equipment Recumbent Stepper (Sci-Fit) Duration (Minutes) 8 Resistance 4 Gym Equipment Cable Column (Body Solid) Lat Pull Down Details with TA activation Resistance 50 lbs Reps/Time x40 Shuttle Recovery Unilateral Squats Resistance 75 lbs Shuttle Recovery Platform Stable Reps/Time 2 x 10 Bilateral Squats Resistance 125 lbs Shuttle Recovery Platform Stable Reps/Time 2 x 10 Shuttle Balance Red Details red Comments fwd: WBOS, NBOS & staggered stance; side: WBOS & NBOS, 1/4 squats Therapeutic Ball standing child's pose Exercise Details standing B shoulder forward flexion- neutral and bias to R and L knee flex/extension Exercise Details double knee to chest Ball Size/Color 55 cm Reps/Duration x15 bridging Ball Size/Color 55 cm Reps/Duration x10 LTR Exercise Details lower trunk rotation Ball Size/Color 55 cm Body Position supine feet on ball Reps/Duration x15 each direction Therapeutic Exercises Sidelying Exercises QL stretch Side left Reps/Minutes 3x1 min holds PT-OP-T Assessment and Plan Start: 05/04/18 17:51 Freq: Status: Active Protocol: Document 07/19/18 16:00 [facility] (Rec: 07/20/18 16:06 [facility] [email or web address]) Physical Therapy Assessment Assessment Summary Assessment Pt with increased restriction in L QL today, but decreased tension with stretching gently . Pt able to increase repetitions of lat pulldowns without c/o pain. Physical Therapy Plan Frequency and Duration Frequency of Treatment 2x/Week Duration of Treatment 8 weeks Plan of Care Start Date 06/28/18 Plan of Care End Date 08/16/18 Next Visit Focus/Plan Next Note Type Treatment Note Next Visit Plan cont. to progress LE and core stability
--- NOTE | 2018-07-24 15:13 | PT.OTN ---
Current Diagnoses Dystonia, unspecified (07/24/18) Hereditary and idiopathic neuropathy, unspecified (07/24/18) Physical Therapy Treatment Note PT-OP-A Visit Information Start: 05/04/18 17:51 Freq: Status: Active Protocol: Document 07/24/18 14:31 [facility] (Rec: 07/24/18 15:12 [facility] [id number]) Out-Patient Physical Therapy Visit Information Visit Information Visit Type Treatment Note Visit Note 8 Visit Start Time 14:30 Visit Stop Time 15:10 Total Visit Minutes 40 Visit Number 17 Number of FRONT OFFICE SPECIALIST Visits 0 PT-OP-B Current Condition Start: 05/04/18 17:51 Freq: Status: Active Protocol: Document 05/04/18 16:00 [facility] (Rec: 05/07/18 15:33 [facility] [email or web address]) Current Condition History of Current Condition Current Complaints B neuropathy (painful) and low back pain History of Current Condition Pt is a 62 y/o male presenting to physical therapy with a c/ o bilateral LE and low back pain. He reports low back pain is chronic, but LE pain has been worsening due to peripheral neuropathy worsening over the past year. He admits to general lower back and LE cramping and weakness noted in his legs. He does try to work on his stationary bike for 15 min 3 times per week. His has advanced Parkinson's Disease, and does have some CG help but does have to physically assist at home. He admits that he was taking narcotics for pain control but recently stopped in December of 2017. He states that the pain clinic he has attended has not helped much with pain. He would like to gain strength in his legs, improve balance and if possible maybe decrease his LE pain. He has trouble with stairs at home (he has a full flight he does daily with rail ), but would love to get back to doing yard work with less discomfort or issues. He is being seen by Dr. Perea for re-assessments a few times a year Treatment Goals Patient/Caregiver Goals improve mobility, be able to do yard work, improve strength and balance Prior Functional Status Baseline Function- Recreation/Hobbies yard work and mowing his lawn Current Functional Impairments (Reported) Functional Limitations- Recreation/ unable to mow lawn or do yard Hobbies work due to pain Personal Factors Other Personal Factors That May Effect h/o 3 back surgeries, T11 Therapy/Recovery kyphoplasty 2012, bilateral neuropathy, dyskinesia with spasms- aggravated with stress per pt; h/o depression, primary CG for with advanced PD PT-OP-C Subjective Start: 05/04/18 17:51 Freq: Status: Active Protocol: Document 07/24/18 14:31 [facility] (Rec: 07/24/18 15:12 [facility] [id number]) OP-PT Subjective Patient Comments Patient Comments Pt reports he feels like his recovery is better after activity, PT-OP-D Balance Start: 05/04/18 17:51 Freq: Status: Active Protocol: Document 05/11/18 16:01 [facility] (Rec: 05/11/18 18:05 [facility] [email or web address]) OP-PT Balance Assessment Standing Balance Standing Balance Comments increased weight shift to the R with lateral standing balance on Shuttle Balance ( red) Mao Fall Scale Copyright Permission Mayco PAYNE, Mayco RM, Cynthia SJ. Development of a scale to identify the fall- prone patient. Can J Aging 1989;8;366-7. Alcira Mao (2009). Preventing patient falls. (2nd ed). [place]: Green. PT-OP-E Functional Tests Start: 05/04/18 17:51 Freq: Status: Active Protocol: Document 06/28/18 12:00 [facility] (Rec: 06/28/18 12:38 [facility] [email or web address]) Functional Tests Functional Gait Assessment Score 27 Functional Gait Assessment Impairment 1 to <20% Impaired (Score 25- Rating 29) PT-OP-F Manual Assessment Start: 05/04/18 17:51 Freq: Status: Active Protocol: Document 06/07/18 11:20 [facility] (Rec: 06/07/18 12:28 [facility] [email or web address]) Manual Assessments Soft Tissue Assessment Soft Tissue Mobility Assessment Moderate tension bilateral QL, lumbar paraspinals PT-OP-G Mobility & Gait Start: 05/04/18 17:51 Freq: Status: Active Protocol: Document 05/04/18 16:00 [facility] (Rec: 05/07/18 15:33 [facility] [email or web address]) OP Gait Assessment Gait Deviations General Gait Pattern Antalgic Decreased Stride Length Wide Based Gait Stair Climbing Evaluation Comments Stair Climbing Comments see Functional Gait Assessment PT-OP-H Neuro Start: 05/04/18 17:51 Freq: Status: Active Protocol: Document 05/04/18 16:00 [facility] (Rec: 05/07/18 15:33 [facility] [email or web address]) Sensation Evaluation Gross Sensation Gross Sensation Left LE Impaired Right LE Impaired Coordination Evaluation Upper Extremity Tests Right Alternate Nose to Finger Test Normal Performance Pronation/Supination Test Normal Performance Left Alternate Nose to Finger Test Normal Performance Pronation/Supination Test Normal Performance Lower Extremity Tests Right Alternate Heel to Knee; Heel to Toe Test Normal Performance Left Alternate Heel to Knee; Heel to Toe Test Normal Performance Deep Tendon Reflex & Clonus Assessment Deep Tendon Reflex Left Patellar Deep Tendon Reflex 0 Absent Right Patellar Deep Tendon Reflex 2+ Normal Bilateral Achilles Deep Tendon Reflex 2+ Normal Ankle Clonus Bilateral Clonus Assessment Absent PT-OP-K Range of Motion Start: 05/04/18 17:51 Freq: Status: Active Protocol: Document 05/04/18 16:00 [facility] (Rec: 05/07/18 15:33 [facility] [email or web address]) Lumbar Spine Range of Motion Lumbar Spine Active Degrees Testing Position Standing Flexion 60 Extension 10 PT-OP-L Special Tests Start: 05/04/18 17:51 Freq: Status: Active Protocol: Document 05/04/18 16:00 [facility] (Rec: 05/07/18 15:33 [facility] [email or web address]) Special Tests Lumbar Spine Special Tests Vertical Spine Loading Test Results negative B Manual Traction Test Results no difference B Straight Leg Raise Test Results negative B PT-OP-M Strength Start: 05/04/18 17:51 Freq: Status: Active Protocol: Document 05/04/18 16:00 [facility] (Rec: 05/07/18 15:33 [facility] [email or web address]) Hip Strength Hip Manual Muscle Testing Right Flexion (L2) 5 Normal Adduction 5 Normal External Rotation 4 Good Internal Rotation 4+ Good+ Left Flexion (L2) 4+ Good+ Adduction 5 Normal External Rotation 4+ Good+ Internal Rotation 4+ Good+ Knee Strength Knee Manual Muscle Testing Right Flexion (S2) 4+ Good+ Extension (L3) 5 Normal Left Flexion (S2) 5 Normal Extension (L3) 5 Normal Ankle/Foot Strength Ankle and Foot Manual Muscle Testing Right Dorsiflexion (L4) 4+ Good+ Plantarflexion (S1) 4 Good Inversion 5 Normal Eversion (S1) 5 Normal Left Dorsiflexion (L4) 5 Normal Plantarflexion (S1) 4 Good Inversion 5 Normal Eversion (S1) 5 Normal Toe Strength Toe Manual Muscle Testing Left Great Toe Extension 5 Normal Right Great Toe Extension 4+ Good+ PT-OP-Q Treatments Start: 05/04/18 17:51 Freq: Status: Active Protocol: Document 07/24/18 14:31 [facility] (Rec: 07/24/18 15:12 [facility] [id number]) Cardio Equipment Recumbent Stepper (Sci-Fit) Duration (Minutes) 8 Resistance 4.3 Gym Equipment Cable Column (Body Solid) Lat Pull Down Details with TA activation Resistance 50 lbs; 60# Reps/Time x20; x15 Shuttle Recovery Unilateral Squats Resistance 75 lbs Shuttle Recovery Platform Stable Reps/Time 2 x 12 Bilateral Squats Resistance 125 lbs Shuttle Recovery Platform Unstable Reps/Time 2 x 12 Shuttle Balance Red Details red Comments fwd: WBOS, NBOS & staggered stance; side: WBOS & NBOS, w/ hitting balloon Therapeutic Ball seated Exercise Details marches & kicks Ball Size/Color 65 cm Body Position Sitting Reps/Duration 15 B ea Therapeutic Exercises Standing Exercises lateral walks Standing Exercise Name side step Side bilateral Reps/Minutes 20ft Neuro Re-Education Treatment Balance Activities bosu Details mini march Reps/Duration 15 B step ups on bosu Details bosu step up Reps/Duration x10 each LE PT-OP-T Assessment and Plan Start: 05/04/18 17:51 Freq: Status: Active Protocol: Document 07/24/18 14:31 [facility] (Rec: 07/24/18 15:12 [facility] [id number]) Physical Therapy Assessment Goals Recreational activities Impairment unable to do yard work due to pain. Short Term Goal (STG) Pt will report being able to do yard work for 30 min with pain rated 2/10 or less. ( Pt able to do 45 min of yard work with increase pain to 6/10) STG Duration 4 weeks Press Reader Goal (LTG) Pt will report being able to do yard work for 1 hr with pain rated 2/10 or less prior to d/c. LTG Duration 8 weeks LE strength Impairment LE weakness Shelter Goal (LTG) Pt with score 5/5 with all LE manual muscle testing prior to d/c to assist with improved tolerance to managing stairs at home. LTG Duration 8 weeks Functional Gait Assessment Impairment Functional Gait Score 25/30 Press Reader Goal (LTG) Pt will improve to >27/30 with Functional Gait Assessment score to demonstrate improvements with dynamic standing balance and gait equal to peers of his own age prior to d/c. 06/09/18: 06/28/18: LTG Duration 8 weeks LEFS Impairment Lower Extremity Functional Scale: 38/80 Short Term Goal (STG) Pt will improve with Lower Extremity Functional scale to 43 or greater, to demonstrate improvements with functional mobility and daily tasks. 06/28/18 achieved STG Duration 4 weeks Shelter Goal (LTG) Pt will improve with Lower Extremity Functional scale to 48 or greater, to demonstrate improvements with functional mobility and daily tasks. 06/28/18: 48/80 LTG Duration 8 weeks Assessment Summary Assessment Pt was able to tolerate increases in resistance and reps with exercises today without c/o of inc back pain. He cont to get fatigue in quads with exercises. Physical Therapy Plan Frequency and Duration Frequency of Treatment 2x/Week Duration of Treatment 8 weeks Plan of Care Start Date 06/28/18 Plan of Care End Date 08/16/18 Next Visit Focus/Plan Next Note Type Treatment Note Next Visit Plan Advance core and balance/ strength as tolerated
--- NOTE | 2018-08-17 11:20 | PT.OPPOC ---
Current Diagnoses Dystonia, unspecified (08/17/18) Hereditary and idiopathic neuropathy, unspecified (08/17/18) Provider Visit Care Team Role Provider Type Frankie Martinez MD Primary Care Provider Physician Specialty: Internal Medicine Address: [address] [place] [address], [id number] Email: [email or web address] Latonya Perea MD Attending Provider Non-Staff Specialty: Neurology Address: [address] [place] [address], [id number] Email: Plan Of Care PT-OP-T Assessment and Plan Start: 05/04/18 17:51 Freq: Status: Active Protocol: Document 08/17/18 11:20 [facility] (Rec: 08/19/18 11:52 [facility] [email or web address]) Physical Therapy Assessment Goals Recreational activities Impairment unable to do yard work due to pain. Short Term Goal (STG) Pt will report being able to do yard work for 30 min with pain rated 2/10 or less. ( Pt able to do 45 min of yard work with increase pain to 6/10) 08/17/18: 30 min with 2/10 pain or less. STG Duration achieved Residential Goal (LTG) Pt will report being able to do yard work for 1 hr with pain rated 2/10 or less prior to d/c. LTG Duration 6 weeks LE strength Impairment LE weakness Electrician Apprentice Powerhouse Goal (LTG) Pt with score 5/5 with all LE manual muscle testing prior to d/c to assist with improved tolerance to managing stairs at home. 08/17/18: some progress LTG Duration 6 weeks Functional Gait Assessment Impairment Functional Gait Score 25/30 Residential Goal (LTG) Pt will improve to >27/30 with Functional Gait Assessment score to demonstrate improvements with dynamic standing balance and gait equal to peers of his own age prior to d/c. 06/09/18: 06/28/18: 08/17/18: achieved, 29/30 LTG Duration achieved LEFS Impairment Lower Extremity Functional Scale: 38/80 Short Term Goal (STG) Pt will improve with Lower Extremity Functional scale to 43 or greater, to demonstrate improvements with functional mobility and daily tasks. 06/28/18 achieved STG Duration achieved Residential Goal (LTG) Pt will improve with Lower Extremity Functional scale to 48 or greater, to demonstrate improvements with functional mobility and daily tasks. 06/28/18: 48/80 LTG Duration achieved Progress Towards Goals Progress Towards Goals Progressing Toward Goals Slow Progress due to Medical Issues Slow Progress - Other Assessment Summary Assessment Pt with 29/30 score on Functional Gait Assessment today, improved since initial evaluation indicating decreased fall risk and improved dynamic standing balance. Pt is not yet back to his prior level of yard and house work, with increased pain after 45 min of work ( goal is 60 min without pain >2 /10). Overall, pt is continuing to improve with strength, balance, and overall functional activity tolerance and would greatly benefit from the continuation of skilled physical therapy to continue to progress toward established goals. Physical Therapy Plan Frequency and Duration Frequency of Treatment 1x/Week Duration of Treatment 6 weeks Plan of Care Start Date 08/17/18 Plan of Care End Date 09/28/18 Therapeutic Interventions Therapeutic Interventions Aquatic Therapy Balance Training Gait Training Home Exercise Program Manual Therapy Neuromuscular Re-education Patient/Caregiver Education Self-Care/Home Management Soft Tissue Mobilization Taping Therapeutic Activities Therapeutic Exercises Modalities Cold Pack/Ice Massage Electric Stimulation Hot Packs Ultrasound Next Visit Focus/Plan Next Note Type Treatment Note Next Visit Plan core and LE strengthening as tolerated, WB functional activities Plan of Care Dates Plan of Care Start Date 08/17/18 Plan of Care End Date 09/28/18 Please Sign and Return: I have reviewed this Plan of Care and certify that the skilled therapy services above are required to meet the patient?s needs. Physician Signature Date Printed Name and Credentials Clinical Instructor Signature Printed Name and Credentials
--- NOTE | 2018-08-17 11:20 | PT.OTN ---
Current Diagnoses Dystonia, unspecified (08/17/18) Hereditary and idiopathic neuropathy, unspecified (08/17/18) Physical Therapy Treatment Note PT-OP-A Visit Information Start: 05/04/18 17:51 Freq: Status: Active Protocol: Document 08/17/18 11:20 [facility] (Rec: 08/19/18 11:52 [facility] [email or web address]) Out-Patient Physical Therapy Visit Information Visit Information Visit Type Treatment Note Visit Note 03/16 Visit Start Time 11:20 Visit Stop Time 12:00 Total Visit Minutes 40 Visit Number 18 Number of FINANCIAL ADVISER Visits 0 Evaluation Information Evaluation Date 05/04/18 PT-OP-B Current Condition Start: 05/04/18 17:51 Freq: Status: Active Protocol: Document 05/04/18 16:00 [facility] (Rec: 05/07/18 15:33 [facility] [email or web address]) Current Condition History of Current Condition Current Complaints B neuropathy (painful) and low back pain History of Current Condition Pt is a 62 y/o male presenting to physical therapy with a c/ o bilateral LE and low back pain. He reports low back pain is chronic, but LE pain has been worsening due to peripheral neuropathy worsening over the past year. He admits to general lower back and LE cramping and weakness noted in his legs. He does try to work on his stationary bike for 15 min 3 times per week. His has advanced Parkinson's Disease, and does have some CG help but does have to physically assist at home. He admits that he was taking narcotics for pain control but recently stopped in December of 2017. He states that the pain clinic he has attended has not helped much with pain. He would like to gain strength in his legs, improve balance and if possible maybe decrease his LE pain. He has trouble with stairs at home (he has a full flight he does daily with rail ), but would love to get back to doing yard work with less discomfort or issues. He is being seen by Dr. Perea for re-assessments a few times a year Treatment Goals Patient/Caregiver Goals improve mobility, be able to do yard work, improve strength and balance Prior Functional Status Baseline Function- Recreation/Hobbies yard work and mowing his lawn Current Functional Impairments (Reported) Functional Limitations- Recreation/ unable to mow lawn or do yard Hobbies work due to pain Personal Factors Other Personal Factors That May Effect h/o 3 back surgeries, T11 Therapy/Recovery kyphoplasty 2012, bilateral neuropathy, dyskinesia with spasms- aggravated with stress per pt; h/o depression, primary CG for with advanced PD PT-OP-C Subjective Start: 05/04/18 17:51 Freq: Status: Active Protocol: Document 08/17/18 11:20 [facility] (Rec: 08/19/18 11:52 [facility] [email or web address]) OP-PT Subjective Patient Comments Patient Comments Pt notes that he is working inside and outside the home more, pain still with 3-4/10 pain rating with 45-60 min work. PT-OP-D Balance Start: 05/04/18 17:51 Freq: Status: Active Protocol: Document 05/11/18 16:01 [facility] (Rec: 05/11/18 18:05 [facility] [email or web address]) OP-PT Balance Assessment Standing Balance Standing Balance Comments increased weight shift to the R with lateral standing balance on Shuttle Balance ( red) Mao Fall Scale Copyright Permission PT-OP-E Functional Tests Start: 05/04/18 17:51 Freq: Status: Active Protocol: Document 08/17/18 11:20 [facility] (Rec: 08/19/18 11:52 [facility] [email or web address]) Functional Tests Functional Gait Assessment Score 29 PT-OP-F Manual Assessment Start: 05/04/18 17:51 Freq: Status: Active Protocol: Document 06/07/18 11:20 [facility] (Rec: 06/07/18 12:28 [facility] [email or web address]) Manual Assessments Soft Tissue Assessment Soft Tissue Mobility Assessment Moderate tension bilateral QL, lumbar paraspinals PT-OP-G Mobility & Gait Start: 05/04/18 17:51 Freq: Status: Active Protocol: Document 05/04/18 16:00 [facility] (Rec: 05/07/18 15:33 [facility] [email or web address]) OP Gait Assessment Gait Deviations General Gait Pattern Antalgic Decreased Stride Length Wide Based Gait Stair Climbing Evaluation Comments Stair Climbing Comments see Functional Gait Assessment PT-OP-H Neuro Start: 05/04/18 17:51 Freq: Status: Active Protocol: Document 05/04/18 16:00 [facility] (Rec: 05/07/18 15:33 [facility] [email or web address]) Sensation Evaluation Gross Sensation Gross Sensation Left LE Impaired Right LE Impaired Coordination Evaluation Upper Extremity Tests Right Alternate Nose to Finger Test Normal Performance Pronation/Supination Test Normal Performance Left Alternate Nose to Finger Test Normal Performance Pronation/Supination Test Normal Performance Lower Extremity Tests Right Alternate Heel to Knee; Heel to Toe Test Normal Performance Left Alternate Heel to Knee; Heel to Toe Test Normal Performance Deep Tendon Reflex & Clonus Assessment Deep Tendon Reflex Left Patellar Deep Tendon Reflex 0 Absent Right Patellar Deep Tendon Reflex 2+ Normal Bilateral Achilles Deep Tendon Reflex 2+ Normal Ankle Clonus Bilateral Clonus Assessment Absent PT-OP-K Range of Motion Start: 05/04/18 17:51 Freq: Status: Active Protocol: Document 05/04/18 16:00 [facility] (Rec: 05/07/18 15:33 [facility] [email or web address]) Lumbar Spine Range of Motion Lumbar Spine Active Degrees Testing Position Standing Flexion 60 Extension 10 PT-OP-L Special Tests Start: 05/04/18 17:51 Freq: Status: Active Protocol: Document 05/04/18 16:00 [facility] (Rec: 05/07/18 15:33 [facility] [email or web address]) Special Tests Lumbar Spine Special Tests Vertical Spine Loading Test Results negative B Manual Traction Test Results no difference B Straight Leg Raise Test Results negative B PT-OP-M Strength Start: 05/04/18 17:51 Freq: Status: Active Protocol: Document 08/17/18 11:20 [facility] (Rec: 08/19/18 11:52 [facility] [email or web address]) Hip Strength Hip Manual Muscle Testing Right Flexion (L2) 5 Normal Adduction 5 Normal External Rotation 4+ Good+ Internal Rotation 5 Normal Left Flexion (L2) 4+ Good+ Adduction 5 Normal External Rotation 4+ Good+ Internal Rotation 5 Normal Knee Strength Knee Manual Muscle Testing Right Flexion (S2) 5 Normal Extension (L3) 5 Normal Left Flexion (S2) 5 Normal Extension (L3) 5 Normal Ankle/Foot Strength Ankle and Foot Manual Muscle Testing Right Dorsiflexion (L4) 4+ Good+ Plantarflexion (S1) 4 Good Inversion 5 Normal Eversion (S1) 5 Normal Left Dorsiflexion (L4) 5 Normal Plantarflexion (S1) 4 Good Inversion 5 Normal Eversion (S1) 5 Normal PT-OP-Q Treatments Start: 05/04/18 17:51 Freq: Status: Active Protocol: Document 08/17/18 11:20 [facility] (Rec: 08/19/18 11:52 [facility] [email or web address]) Cardio Equipment Recumbent Stepper (Sci-Fit) Duration (Minutes) 8 Resistance 4 Gym Equipment Cable Column (Body Solid) Rows Details with TA activation- backward lunge and squat position Resistance 20 lbs Reps/Time x10 each position Lat Pull Down Details with TA activation Resistance 60lbs Reps/Time x20 Shuttle Recovery Unilateral Squats Resistance 75 lbs Shuttle Recovery Platform Stable Reps/Time 2 x 12 Bilateral Squats Resistance 125 lbs Shuttle Recovery Platform Stable Reps/Time 2 x 12 Therapeutic Activity Therapeutic Activity functional gait assessment Reps/Minutes 10 min Manual Therapy Treatment Other Other Manual Treatments LE MMT- 5 min PT-OP-T Assessment and Plan Start: 05/04/18 17:51 Freq: Status: Active Protocol: Document 08/17/18 11:20 [facility] (Rec: 08/19/18 11:52 [facility] [email or web address]) Physical Therapy Assessment Goals Recreational activities Impairment unable to do yard work due to pain. Short Term Goal (STG) Pt will report being able to do yard work for 30 min with pain rated 2/10 or less. ( Pt able to do 45 min of yard work with increase pain to 6/10) 08/17/18: 30 min with 2/10 pain or less. STG Duration achieved Transplanter Orchid Goal (LTG) Pt will report being able to do yard work for 1 hr with pain rated 2/10 or less prior to d/c. LTG Duration 6 weeks LE strength Impairment LE weakness Snf Goal (LTG) Pt with score 5/5 with all LE manual muscle testing prior to d/c to assist with improved tolerance to managing stairs at home. 08/17/18: some progress LTG Duration 6 weeks Functional Gait Assessment Impairment Functional Gait Score 25/30 Snf Goal (LTG) Pt will improve to >27/30 with Functional Gait Assessment score to demonstrate improvements with dynamic standing balance and gait equal to peers of his own age prior to d/c. 06/09/18: 06/28/18: 08/17/18: achieved, 2930 LTG Duration achieved LEFS Impairment Lower Extremity Functional Scale: 38/80 Short Term Goal (STG) Pt will improve with Lower Extremity Functional scale to 43 or greater, to demonstrate improvements with functional mobility and daily tasks. 06/28/18 achieved STG Duration achieved Snf Goal (LTG) Pt will improve with Lower Extremity Functional scale to 48 or greater, to demonstrate improvements with functional mobility and daily tasks. 06/28/18: 48/80 LTG Duration achieved Progress Towards Goals Progress Towards Goals Progressing Toward Goals Slow Progress due to Medical Issues Slow Progress - Other Assessment Summary Assessment Pt with 29/30 score on Functional Gait Assessment today, improved since initial evaluation indicating decreased fall risk and improved dynamic standing balance. Pt is not yet back to his prior level of yard and house work, with increased pain after 45 min of work ( goal is 60 min without pain >2 /10). Overall, pt is continuing to improve with strength, balance, and overall functional activity tolerance and would greatly benefit from the continuation of skilled phyiscal therapy to continue to progress toward established goals. Physical Therapy Plan Frequency and Duration Frequency of Treatment 1x/Week Duration of Treatment 6 weeks Plan of Care Start Date 08/17/18 Plan of Care End Date 09/28/18 Therapeutic Interventions Therapeutic Interventions Aquatic Therapy Balance Training Gait Training Home Exercise Program Manual Therapy Neuromuscular Re-education Patient/Caregiver Education Self-Care/Home Management Soft Tissue Mobilization Taping Therapeutic Activities Therapeutic Exercises Modalities Cold Pack/Ice Massage Electric Stimulation Hot Packs Ultrasound Next Visit Focus/Plan Next Note Type Treatment Note Next Visit Plan core and LE strengthening as tolerated, WB functional activities
--- NOTE | 2018-08-30 12:22 | PT.OTN ---
Current Diagnoses Dystonia, unspecified (08/30/18) Hereditary and idiopathic neuropathy, unspecified (08/30/18) Physical Therapy Treatment Note PT-OP-A Visit Information Start: 05/04/18 17:51 Freq: Status: Active Protocol: Document 08/30/18 12:14 SA (Rec: 08/30/18 12:21 SA [email or web address]) Out-Patient Physical Therapy Visit Information Visit Information Visit Type Treatment Note Visit Note 04/16 Visit Start Time 09:45 Visit Stop Time 10:30 Total Visit Minutes 45 Visit Number 19 Number of COAL TRIMMER Visits 1 PT-OP-B Current Condition Start: 05/04/18 17:51 Freq: Status: Active Protocol: Document 05/04/18 16:00 RCC (Rec: 05/07/18 15:33 RCC [email or web address]) Current Condition History of Current Condition Current Complaints B neuropathy (painful) and low back pain History of Current Condition Pt is a 62 y/o male presenting to physical therapy with a c/ o bilateral LE and low back pain. He reports low back pain is chronic, but LE pain has been worsening due to peripheral neuropathy worsening over the past year. He admits to general lower back and LE cramping and weakness noted in his legs. He does try to work on his stationary bike for 15 min 3 times per week. His has advanced Parkinson's Disease, and does have some CG help but does have to physically assist at home. He admits that he was taking narcotics for pain control but recently stopped in December of 2017. He states that the pain clinic he has attended has not helped much with pain. He would like to gain strength in his legs, improve balance and if possible maybe decrease his LE pain. He has trouble with stairs at home (he has a full flight he does daily with rail ), but would love to get back to doing yard work with less discomfort or issues. He is being seen by Dr. Perea for re-assessments a few times a year Treatment Goals Patient/Caregiver Goals improve mobility, be able to do yard work, improve strength and balance Prior Functional Status Baseline Function- Recreation/Hobbies yard work and mowing his lawn Current Functional Impairments (Reported) Functional Limitations- Recreation/ unable to mow lawn or do yard Hobbies work due to pain Personal Factors Other Personal Factors That May Effect h/o 3 back surgeries, T11 Therapy/Recovery kyphoplasty 2011, bilateral neuropathy, dyskinesia with spasms- aggravated with stress per pt; h/o depression, primary CG for with advanced PD PT-OP-C Subjective Start: 05/04/18 17:51 Freq: Status: Active Protocol: Document 08/30/18 12:22 SA (Rec: 08/30/18 12:22 SA [email or web address]) OP-PT Subjective Patient Comments Patient Comments Pt reports feeling a little better and tolerating more yard work. Patient Reported Progress Improving PT-OP-D Balance Start: 05/04/18 17:51 Freq: Status: Active Protocol: Document 05/11/18 16:01 RCC (Rec: 05/11/18 18:05 RCC [email or web address]) OP-PT Balance Assessment Standing Balance Standing Balance Comments increased weight shift to the R with lateral standing balance on Shuttle Balance ( red) Mao Fall Scale Copyright Permission PT-OP-E Functional Tests Start: 05/04/18 17:51 Freq: Status: Active Protocol: Document 08/17/18 11:20 RCC (Rec: 08/19/18 11:52 RCC [email or web address]) Functional Tests Functional Gait Assessment Score 29 PT-OP-F Manual Assessment Start: 05/04/18 17:51 Freq: Status: Active Protocol: Document 06/07/18 11:20 RCC (Rec: 06/07/18 12:28 RCC [email or web address]) Manual Assessments Soft Tissue Assessment Soft Tissue Mobility Assessment Moderate tension bilateral QL, lumbar paraspinals PT-OP-G Mobility & Gait Start: 05/04/18 17:51 Freq: Status: Active Protocol: Document 05/04/18 16:00 RCC (Rec: 05/07/18 15:33 RCC [email or web address]) OP Gait Assessment Gait Deviations General Gait Pattern Antalgic Decreased Stride Length Wide Based Gait Stair Climbing Evaluation Comments Stair Climbing Comments see Functional Gait Assessment PT-OP-H Neuro Start: 05/04/18 17:51 Freq: Status: Active Protocol: Document 05/04/18 16:00 RCC (Rec: 05/07/18 15:33 RCC [email or web address]) Sensation Evaluation Gross Sensation Gross Sensation Left LE Impaired Right LE Impaired Coordination Evaluation Upper Extremity Tests Right Alternate Nose to Finger Test Normal Performance Pronation/Supination Test Normal Performance Left Alternate Nose to Finger Test Normal Performance Pronation/Supination Test Normal Performance Lower Extremity Tests Right Alternate Heel to Knee; Heel to Toe Test Normal Performance Left Alternate Heel to Knee; Heel to Toe Test Normal Performance Deep Tendon Reflex & Clonus Assessment Deep Tendon Reflex Left Patellar Deep Tendon Reflex 0 Absent Right Patellar Deep Tendon Reflex 2+ Normal Bilateral Achilles Deep Tendon Reflex 2+ Normal Ankle Clonus Bilateral Clonus Assessment Absent PT-OP-K Range of Motion Start: 05/04/18 17:51 Freq: Status: Active Protocol: Document 05/04/18 16:00 RCC (Rec: 05/07/18 15:33 RCC [email or web address]) Lumbar Spine Range of Motion Lumbar Spine Active Degrees Testing Position Standing Flexion 60 Extension 10 PT-OP-L Special Tests Start: 05/04/18 17:51 Freq: Status: Active Protocol: Document 05/04/18 16:00 RCC (Rec: 05/07/18 15:33 RCC [email or web address]) Special Tests Lumbar Spine Special Tests Vertical Spine Loading Test Results negative B Manual Traction Test Results no difference B Straight Leg Raise Test Results negative B PT-OP-M Strength Start: 05/04/18 17:51 Freq: Status: Active Protocol: Document 08/17/18 11:20 RCC (Rec: 08/19/18 11:52 RCC [email or web address]) Hip Strength Hip Manual Muscle Testing Right Flexion (L2) 5 Normal Adduction 5 Normal External Rotation 4+ Good+ Internal Rotation 5 Normal Left Flexion (L2) 4+ Good+ Adduction 5 Normal External Rotation 4+ Good+ Internal Rotation 5 Normal Knee Strength Knee Manual Muscle Testing Right Flexion (S2) 5 Normal Extension (L3) 5 Normal Left Flexion (S2) 5 Normal Extension (L3) 5 Normal Ankle/Foot Strength Ankle and Foot Manual Muscle Testing Right Dorsiflexion (L4) 4+ Good+ Plantarflexion (S1) 4 Good Inversion 5 Normal Eversion (S1) 5 Normal Left Dorsiflexion (L4) 5 Normal Plantarflexion (S1) 4 Good Inversion 5 Normal Eversion (S1) 5 Normal PT-OP-Q Treatments Start: 05/04/18 17:51 Freq: Status: Active Protocol: Document 08/30/18 12:14 SA (Rec: 08/30/18 12:21 SA [email or web address]) Cardio Equipment Recumbent Stepper (Sci-Fit) Duration (Minutes) 8 Resistance 4.2 Gym Equipment Shuttle Recovery Unilateral Squats Resistance 75 lbs Shuttle Recovery Platform Stable Reps/Time 2 x 12 Bilateral Squats Resistance 125 lbs Shuttle Recovery Platform Unstable Reps/Time 2 x 12 Shuttle Balance Red Details red Reps/Duration 6 min Comments fwd: WBOS, NBOS & staggered stance; side: WBOS & NBOS, w/ hitting balloon Therapeutic Ball seated Exercise Details Alt UE/LE Ball Size/Color 65 cm Body Position Sitting Reps/Duration 15 B ea Therapeutic Exercises Standing Exercises stairs Standing Exercise Name step ups/downs Side bilateral Reps/Minutes 2 sets Comments 2# cuff weights HS stretch Side bilateral Reps/Minutes 2x30 sec each Comments stairs Neuro Re-Education Treatment Balance Activities Chel step overs Details FWD/BKWD/Lateral Reps/Duration 6 lengths of bar Comments with foam pads BOSU Squats Equipment at bar Reps/Duration 8x bosu Details mini march and lunge Reps/Duration 15 B step ups on bosu Details bosu step up Reps/Duration x10 each LE PT-OP-T Assessment and Plan Start: 05/04/18 17:51 Freq: Status: Active Protocol: Document 08/30/18 12:14 SA (Rec: 08/30/18 12:21 SA [email or web address]) Physical Therapy Assessment Assessment Summary Assessment Pt progressing with dynamic balance and LE strength, improving core engagement with activity. Physical Therapy Plan Next Visit Focus/Plan Next Note Type Treatment Note Next Visit Plan core and LE strengthening as tolerated, WB functional activities
--- NOTE | 2018-09-13 11:14 | PT.OTN ---
Current Diagnoses Dystonia, unspecified (09/13/18) Hereditary and idiopathic neuropathy, unspecified (09/13/18) Physical Therapy Treatment Note PT-OP-A Visit Information Start: 05/04/18 17:51 Freq: Status: Active Protocol: Document 09/13/18 09:44 EA (Rec: 09/13/18 09:49 EA [id number]) Out-Patient Physical Therapy Visit Information Visit Information Visit Type Treatment Note Visit Start Time 09:00 Visit Stop Time 09:45 Total Visit Minutes 40 Visit Number 20 PT-OP-B Current Condition Start: 05/04/18 17:51 Freq: Status: Active Protocol: Document 05/04/18 16:00 RCC (Rec: 05/07/18 15:33 RCC [email or web address]) Current Condition History of Current Condition Current Complaints B neuropathy (painful) and low back pain History of Current Condition Pt is a 62 y/o male presenting to physical therapy with a c/ o bilateral LE and low back pain. He reports low back pain is chronic, but LE pain has been worsening due to peripheral neuropathy worsening over the past year. He admits to general lower back and LE cramping and weakness noted in his legs. He does try to work on his stationary bike for 15 min 3 times per week. His has advanced Parkinson's Disease, and does have some CG help but does have to physically assist at home. He admits that he was taking narcotics for pain control but recently stopped in December of 2017. He states that the pain clinic he has attended has not helped much with pain. He would like to gain strength in his legs, improve balance and if possible maybe decrease his LE pain. He has trouble with stairs at home (he has a full flight he does daily with rail ), but would love to get back to doing yard work with less discomfort or issues. He is being seen by Dr. Perea for re-assessments a few times a year Treatment Goals Patient/Caregiver Goals improve mobility, be able to do yard work, improve strength and balance Prior Functional Status Baseline Function- Recreation/Hobbies yard work and mowing his lawn Current Functional Impairments (Reported) Functional Limitations- Recreation/ unable to mow lawn or do yard Hobbies work due to pain Personal Factors Other Personal Factors That May Effect h/o 3 back surgeries, T11 Therapy/Recovery kyphoplasty 2011, bilateral neuropathy, dyskinesia with spasms- aggravated with stress per pt; h/o depression, primary CG for with advanced PD PT-OP-C Subjective Start: 05/04/18 17:51 Freq: Status: Active Protocol: Document 09/13/18 09:44 EA (Rec: 09/13/18 09:49 EA [id number]) OP-PT Subjective Patient Comments Patient Comments Pt reports diagnosed with heart disease after agina pectoris incident while working in the yard; states he does not believed it is an angina pectoris. Patient Reported Progress Improving PT-OP-D Balance Start: 05/04/18 17:51 Freq: Status: Active Protocol: Document 05/11/18 16:01 RCC (Rec: 05/11/18 18:05 RCC [email or web address]) OP-PT Balance Assessment Standing Balance Standing Balance Comments increased weight shift to the R with lateral standing balance on Shuttle Balance ( red) Mao Fall Scale Copyright Permission PT-OP-E Functional Tests Start: 05/04/18 17:51 Freq: Status: Active Protocol: Document 08/17/18 11:20 RCC (Rec: 08/19/18 11:52 RCC [email or web address]) Functional Tests Functional Gait Assessment Score 29 PT-OP-F Manual Assessment Start: 05/04/18 17:51 Freq: Status: Active Protocol: Document 06/07/18 11:20 RCC (Rec: 06/07/18 12:28 RCC [email or web address]) Manual Assessments Soft Tissue Assessment Soft Tissue Mobility Assessment Moderate tension bilateral QL, lumbar paraspinals PT-OP-G Mobility & Gait Start: 05/04/18 17:51 Freq: Status: Active Protocol: Document 05/04/18 16:00 RCC (Rec: 05/07/18 15:33 RCC [email or web address]) OP Gait Assessment Gait Deviations General Gait Pattern Antalgic Decreased Stride Length Wide Based Gait Stair Climbing Evaluation Comments Stair Climbing Comments see Functional Gait Assessment PT-OP-H Neuro Start: 05/04/18 17:51 Freq: Status: Active Protocol: Document 05/04/18 16:00 RCC (Rec: 05/07/18 15:33 RCC [email or web address]) Sensation Evaluation Gross Sensation Gross Sensation Left LE Impaired Right LE Impaired Coordination Evaluation Upper Extremity Tests Right Alternate Nose to Finger Test Normal Performance Pronation/Supination Test Normal Performance Left Alternate Nose to Finger Test Normal Performance Pronation/Supination Test Normal Performance Lower Extremity Tests Right Alternate Heel to Knee; Heel to Toe Test Normal Performance Left Alternate Heel to Knee; Heel to Toe Test Normal Performance Deep Tendon Reflex & Clonus Assessment Deep Tendon Reflex Left Patellar Deep Tendon Reflex 0 Absent Right Patellar Deep Tendon Reflex 2+ Normal Bilateral Achilles Deep Tendon Reflex 2+ Normal Ankle Clonus Bilateral Clonus Assessment Absent PT-OP-K Range of Motion Start: 05/04/18 17:51 Freq: Status: Active Protocol: Document 05/04/18 16:00 RCC (Rec: 05/07/18 15:33 RCC [email or web address]) Lumbar Spine Range of Motion Lumbar Spine Active Degrees Testing Position Standing Flexion 60 Extension 10 PT-OP-L Special Tests Start: 05/04/18 17:51 Freq: Status: Active Protocol: Document 05/04/18 16:00 RCC (Rec: 05/07/18 15:33 RCC [email or web address]) Special Tests Lumbar Spine Special Tests Vertical Spine Loading Test Results negative B Manual Traction Test Results no difference B Straight Leg Raise Test Results negative B PT-OP-M Strength Start: 05/04/18 17:51 Freq: Status: Active Protocol: Document 08/17/18 11:20 RCC (Rec: 08/19/18 11:52 RCC [email or web address]) Hip Strength Hip Manual Muscle Testing Right Flexion (L2) 5 Normal Adduction 5 Normal External Rotation 4+ Good+ Internal Rotation 5 Normal Left Flexion (L2) 4+ Good+ Adduction 5 Normal External Rotation 4+ Good+ Internal Rotation 5 Normal Knee Strength Knee Manual Muscle Testing Right Flexion (S2) 5 Normal Extension (L3) 5 Normal Left Flexion (S2) 5 Normal Extension (L3) 5 Normal Ankle/Foot Strength Ankle and Foot Manual Muscle Testing Right Dorsiflexion (L4) 4+ Good+ Plantarflexion (S1) 4 Good Inversion 5 Normal Eversion (S1) 5 Normal Left Dorsiflexion (L4) 5 Normal Plantarflexion (S1) 4 Good Inversion 5 Normal Eversion (S1) 5 Normal PT-OP-Q Treatments Start: 05/04/18 17:51 Freq: Status: Active Protocol: Document 09/13/18 09:44 EA (Rec: 09/13/18 09:49 EA [id number]) Cardio Equipment Recumbent Stepper (Sci-Fit) Duration (Minutes) 8 Resistance 4.2 Gym Equipment Shuttle Balance Red Details red Reps/Duration 6 min Comments fwd: WBOS, NBOS & staggered stance; side: WBOS & NBOS, w/ hitting balloon Sport Cord 2 Exercise Details 6 step ups Reps/Duration x 10 reps each leg. 1 Exercise Details fwd/bwd/sdw Cord/Resistance red Reps/Duration 5 laps each Therapeutic Exercises Sitting Exercises squat hold Side bilateral Equipment Used grab bar Comments 10 secs hold Standing Exercises 3 way hip Standing Exercise Name hip- flexion (may), extension, abduction Side bilateral Resistance 4 lb AW Equipment Used // bars Reps/Minutes x10 each lateral step ups Standing Exercise Name 8 steps without the rail Side bilateral Reps/Minutes x10 each sit to stand Side bilateral Comments 8 secs down , 1 second up Neuro Re-Education Treatment Balance Activities Chel step overs Details FWD/BKWD/Lateral Reps/Duration 6 lengths of bar Comments with foam pads BOSU Squats Equipment at bar Reps/Duration 8x bosu Details mini march and lunge Reps/Duration 15 B step ups on bosu Details bosu step up Reps/Duration x10 each LE PT-OP-T Assessment and Plan Start: 05/04/18 17:51 Freq: Status: Active Protocol: Document 09/13/18 10:30 EA (Rec: 09/13/18 10:33 EA [id number]) Physical Therapy Assessment Assessment Summary Assessment Patient did not show any angina symptoms with all therex; fatigue follows with involuntary movement to both legs. I recommended to patient to see his low back specialist and neurologist to re-evaluate patient lumbosacral nerves. Quick assessment and history taking reveals possibly lower motor neuron condition with increasing symptoms to repeated contraction which in my opinion possibly with MG. Overall patient tolerated treatment until dystonia occurs after 35 mins. Physical Therapy Plan Next Visit Focus/Plan Next Note Type Treatment Note
--- NOTE | 2018-10-11 10:29 | PT.OTN ---
Current Diagnoses Dystonia, unspecified (10/11/18) Hereditary and idiopathic neuropathy, unspecified (10/11/18) Physical Therapy Treatment Note PT-OP-A Visit Information Start: 05/04/18 17:51 Freq: Status: Active Protocol: Document 10/11/18 09:45 DCW (Rec: 10/11/18 10:28 DCW [id number]) Out-Patient Physical Therapy Visit Information Visit Information Visit Type Progress Note Visit Start Time 09:45 Visit Stop Time 10:30 Total Visit Minutes 45 Visit Number 21 Number of SHOT PACKER Visits 0 Evaluation Information Evaluation Date 05/04/18 PT-OP-B Current Condition Start: 05/04/18 17:51 Freq: Status: Active Protocol: Document 05/04/18 16:00 RCC (Rec: 05/07/18 15:33 RCC [email or web address]) Current Condition History of Current Condition Current Complaints B neuropathy (painful) and low back pain History of Current Condition Pt is a 62 y/o male presenting to physical therapy with a c/ o bilateral LE and low back pain. He reports low back pain is chronic, but LE pain has been worsening due to peripheral neuropathy worsening over the past year. He admits to general lower back and LE cramping and weakness noted in his legs. He does try to work on his stationary bike for 15 min 3 times per week. His has advanced Parkinson's Disease, and does have some CG help but does have to physically assist at home. He admits that he was taking narcotics for pain control but recently stopped in December of 2017. He states that the pain clinic he has attended has not helped much with pain. He would like to gain strength in his legs, improve balance and if possible maybe decrease his LE pain. He has trouble with stairs at home (he has a full flight he does daily with rail ), but would love to get back to doing yard work with less discomfort or issues. He is being seen by Dr. Perea for re-assessments a few times a year Treatment Goals Patient/Caregiver Goals improve mobility, be able to do yard work, improve strength and balance Prior Functional Status Baseline Function- Recreation/Hobbies yard work and mowing his lawn Current Functional Impairments (Reported) Functional Limitations- Recreation/ unable to mow lawn or do yard Hobbies work due to pain Personal Factors Other Personal Factors That May Effect h/o 3 back surgeries, T11 Therapy/Recovery kyphoplasty 2012, bilateral neuropathy, dyskinesia with spasms- aggravated with stress per pt; h/o depression, primary CG for with advanced PD PT-OP-C Subjective Start: 05/04/18 17:51 Freq: Status: Active Protocol: Document 10/11/18 09:45 DCW (Rec: 10/11/18 09:52 DCW [id number]) OP-PT Subjective Patient Comments Patient Comments Pt feels like his endurance and stabilty have improved since beginning therapy. PT-OP-D Balance Start: 05/04/18 17:51 Freq: Status: Active Protocol: Document 10/11/18 09:45 DCW (Rec: 10/11/18 10:09 DCW [id number]) OP-PT Balance Assessment Standing Balance Standing Balance Comments increased weight shift to the R with lateral standing balance on Shuttle Balance ( red) Mao Fall Scale Copyright Permission PT-OP-E Functional Tests Start: 05/04/18 17:51 Freq: Status: Active Protocol: Document 08/17/18 11:20 RCC (Rec: 08/19/18 11:52 RCC [email or web address]) Functional Tests Functional Gait Assessment Score 29 PT-OP-F Manual Assessment Start: 05/04/18 17:51 Freq: Status: Active Protocol: Document 10/11/18 09:45 DCW (Rec: 10/11/18 10:09 DCW [id number]) Manual Assessments Soft Tissue Assessment Soft Tissue Mobility Assessment Moderate tension bilateral QL, lumbar paraspinals. Radicular pain down LEs with palpation of QL, L worse than R PT-OP-G Mobility & Gait Start: 05/04/18 17:51 Freq: Status: Active Protocol: Document 10/11/18 09:45 DCW (Rec: 10/11/18 10:09 DCW [id number]) OP Gait Assessment Gait Deviations General Gait Pattern Antalgic Decreased Stride Length Wide Based Gait PT-OP-H Neuro Start: 05/04/18 17:51 Freq: Status: Active Protocol: Document 10/11/18 09:45 DCW (Rec: 10/11/18 10:09 DCW [id number]) Sensation Evaluation Gross Sensation Gross Sensation Left LE Impaired Right LE Impaired PT-OP-K Range of Motion Start: 05/04/18 17:51 Freq: Status: Active Protocol: Document 10/11/18 09:45 DCW (Rec: 10/11/18 10:09 DCW [id number]) Lumbar Spine Range of Motion Lumbar Spine Active Degrees Testing Position Standing Flexion 50 Extension 5 PT-OP-L Special Tests Start: 05/04/18 17:51 Freq: Status: Active Protocol: Document 05/04/18 16:00 RCC (Rec: 05/07/18 15:33 RCC [email or web address]) Special Tests Lumbar Spine Special Tests Vertical Spine Loading Test Results negative B Manual Traction Test Results no difference B Straight Leg Raise Test Results negative B PT-OP-M Strength Start: 05/04/18 17:51 Freq: Status: Active Protocol: Document 10/11/18 09:45 DCW (Rec: 10/11/18 10:29 DCW [id number]) Hip Strength Hip Manual Muscle Testing Right Flexion (L2) 5 Normal Extension (S1) 4 Good Abduction 4 Good Adduction 5 Normal External Rotation 4+ Good+ Internal Rotation 5 Normal Left Flexion (L2) 4+ Good+ Extension (S1) 4 Good Abduction 4 Good Adduction 5 Normal External Rotation 4+ Good+ Internal Rotation 5 Normal Knee Strength Knee Manual Muscle Testing Right Flexion (S2) 5 Normal Extension (L3) 5 Normal Left Flexion (S2) 5 Normal Extension (L3) 5 Normal Ankle/Foot Strength Ankle and Foot Manual Muscle Testing Right Dorsiflexion (L4) 4+ Good+ Plantarflexion (S1) 4 Good Inversion 5 Normal Eversion (S1) 5 Normal Left Dorsiflexion (L4) 5 Normal Plantarflexion (S1) 4 Good Inversion 5 Normal Eversion (S1) 5 Normal PT-OP-Q Treatments Start: 05/04/18 17:51 Freq: Status: Active Protocol: Document 10/11/18 09:45 DCW (Rec: 10/11/18 10:28 DCW [id number]) Cardio Equipment Recumbent Elliptical (Biodex) Duration (Minutes) 6 Resistance 5 Gym Equipment Shuttle Recovery Unilateral Squats Resistance 75 lbs Shuttle Recovery Platform Stable Reps/Time 2 x 12 Bilateral Squats Resistance 125 lbs Shuttle Recovery Platform Unstable Reps/Time 2 x 12 Shuttle Balance Red Details Wide СВЕТЛАНА, Staggered, Lateral weight shift Neuro Re-Education Treatment Balance Activities Chel step overs Details FWD/BKWD/Lateral Reps/Duration 6 lengths of bar Comments with foam pads PT-OP-T Assessment and Plan Start: 05/04/18 17:51 Freq: Status: Active Protocol: Document 10/11/18 09:45 DCW (Rec: 10/11/18 10:28 DCW [id number]) Physical Therapy Assessment Goals Recreational activities Impairment unable to do yard work due to pain. Short Term Goal (STG) Pt will report being able to do yard work for 30 min with pain rated 2/10 or less. ( Pt able to do 45 min of yard work with increase pain to 6/10) 08/17/18: 30 min with 2/10 pain or less. STG Duration achieved Wastewater Project Engineer Goal (LTG) Pt will report being able to do yard work for 1 hr with pain rated 2/10 or less prior to d/c. LTG Duration 12/11/18 - Improving (1 hour, 4 /10 pain) LE strength Impairment LE weakness Custodial Goal (LTG) Pt with score 5/5 with all LE manual muscle testing prior to d/c to assist with improved tolerance to managing stairs at home. 08/17/18: some progress LTG Duration 12/11/18 - Improving Functional Gait Assessment Impairment Functional Gait Score 25/30 Wastewater Project Engineer Goal (LTG) Pt will improve to >27/30 with Functional Gait Assessment score to demonstrate improvements with dynamic standing balance and gait equal to peers of his own age prior to d/c. 06/09/18: 27/30 06/28/18: 27/30 08/17/18: achieved, 29/30 LTG Duration achieved LEFS Impairment Lower Extremity Functional Scale: 38/80 Short Term Goal (STG) Pt will improve with Lower Extremity Functional scale to 43 or greater, to demonstrate improvements with functional mobility and daily tasks. 06/28/18 achieved STG Duration achieved Custodial Goal (LTG) Pt will improve with Lower Extremity Functional scale to 48 or greater, to demonstrate improvements with functional mobility and daily tasks. 06/28/18: 48/80 LTG Duration achieved Assessment Summary Assessment Pt progressing with activity tolerance and balance, still struggling a little bit with stairs.Pt notes that he is improving with his goal of one hours of yard work with no increased pain. Physical Therapy Plan Frequency and Duration Frequency of Treatment 1x/Week Duration of Treatment 10 weeks Plan of Care Start Date 10/11/18 Plan of Care End Date 12/20/18 Therapeutic Interventions Therapeutic Interventions Aquatic Therapy Balance Training Gait Training Home Exercise Program Manual Therapy Neuromuscular Re-education Patient/Caregiver Education Self-Care/Home Management Soft Tissue Mobilization Taping Therapeutic Activities Therapeutic Exercises Modalities Cold Pack/Ice Massage Electric Stimulation Hot Packs Ultrasound Next Visit Focus/Plan Next Note Type Treatment Note Next Visit Plan core and LE strengthening as tolerated, WB functional activities
--- NOTE | 2018-10-11 10:30 | PT.OPPOC ---
Current Diagnoses Dystonia, unspecified (10/11/18) Hereditary and idiopathic neuropathy, unspecified (10/11/18) Provider Visit Care Team Role Provider Type Frankie Martinez MD Primary Care Provider Physician Specialty: Internal Medicine Address: [address] [place] [address], [id number] Email: [email or web address] Latonya Perea MD Attending Provider Non-Staff Specialty: Neurology Address: [address] [place] [address], [id number] Email: Plan Of Care PT-OP-T Assessment and Plan Start: 05/04/18 17:51 Freq: Status: Active Protocol: Document 10/11/18 09:45 DCW (Rec: 10/11/18 10:28 DCW [id number]) Physical Therapy Assessment Goals Recreational activities Impairment unable to do yard work due to pain. Short Term Goal (STG) Pt will report being able to do yard work for 30 min with pain rated 2/10 or less. ( Pt able to do 45 min of yard work with increase pain to 6/10) 08/17/18: 30 min with 2/10 pain or less. STG Duration achieved Double Bass Player Goal (LTG) Pt will report being able to do yard work for 1 hr with pain rated 2/10 or less prior to d/c. LTG Duration 12/11/18 - Improving (1 hour, 4 /10 pain) LE strength Impairment LE weakness Double Bass Player Goal (LTG) Pt with score 5/5 with all LE manual muscle testing prior to d/c to assist with improved tolerance to managing stairs at home. 08/17/18: some progress LTG Duration 12/11/18 - Improving Functional Gait Assessment Impairment Functional Gait Score 25/30 Double Bass Player Goal (LTG) Pt will improve to >27/30 with Functional Gait Assessment score to demonstrate improvements with dynamic standing balance and gait equal to peers of his own age prior to d/c. 06/09/18: 06/28/18: 30 08/17/18: achieved, 29/30 LTG Duration achieved LEFS Impairment Lower Extremity Functional Scale: 38/80 Short Term Goal (STG) Pt will improve with Lower Extremity Functional scale to 43 or greater, to demonstrate improvements with functional mobility and daily tasks. 06/28/18 achieved STG Duration achieved Senior Care Goal (LTG) Pt will improve with Lower Extremity Functional scale to 48 or greater, to demonstrate improvements with functional mobility and daily tasks. 06/28/18: 48/80 LTG Duration achieved Assessment Summary Assessment Pt progressing with activity tolerance and balance, still struggling a little bit with stairs.Pt notes that he is improving with his goal of one hours of yard work with no increased pain. Physical Therapy Plan Frequency and Duration Frequency of Treatment 1x/Week Duration of Treatment 10 weeks Plan of Care Start Date 10/11/18 Plan of Care End Date 12/20/18 Therapeutic Interventions Therapeutic Interventions Aquatic Therapy Balance Training Gait Training Home Exercise Program Manual Therapy Neuromuscular Re-education Patient/Caregiver Education Self-Care/Home Management Soft Tissue Mobilization Taping Therapeutic Activities Therapeutic Exercises Modalities Cold Pack/Ice Massage Electric Stimulation Hot Packs Ultrasound Next Visit Focus/Plan Next Note Type Treatment Note Next Visit Plan core and LE strengthening as tolerated, WB functional activities Plan of Care Dates Plan of Care Start Date 10/11/18 Plan of Care End Date 12/20/18 Please Sign and Return: I have reviewed this Plan of Care and certify that the skilled therapy services above are required to meet the patient?s needs. Physician Signature Date Printed Name and Credentials Clinical Instructor Signature Printed Name and Credentials
--- NOTE | 2018-10-23 09:04 | PT.OTN ---
Current Diagnoses Dystonia, unspecified (10/23/18) Hereditary and idiopathic neuropathy, unspecified (10/23/18) Physical Therapy Treatment Note PT-OP-A Visit Information Start: 05/04/18 17:51 Freq: Status: Active Protocol: Document 10/23/18 08:19 LRN (Rec: 10/23/18 09:02 LRN [id number]) Out-Patient Physical Therapy Visit Information Visit Information Visit Type Treatment Note Visit Start Time 08:19 Visit Stop Time 08:59 Total Visit Minutes 40 Visit Number 22 Number of DIE MECHANIC Visits 0 Evaluation Information Evaluation Date 05/04/18 PT-OP-B Current Condition Start: 05/04/18 17:51 Freq: Status: Active Protocol: Document 05/04/18 16:00 RCC (Rec: 05/07/18 15:33 RCC [email or web address]) Current Condition History of Current Condition Current Complaints B neuropathy (painful) and low back pain History of Current Condition Pt is a 62 y/o male presenting to physical therapy with a c/ o bilateral LE and low back pain. He reports low back pain is chronic, but LE pain has been worsening due to peripheral neuropathy worsening over the past year. He admits to general lower back and LE cramping and weakness noted in his legs. He does try to work on his stationary bike for 15 min 3 times per week. His has advanced Parkinson's Disease, and does have some CG help but does have to physically assist at home. He admits that he was taking narcotics for pain control but recently stopped in December of 2017. He states that the pain clinic he has attended has not helped much with pain. He would like to gain strength in his legs, improve balance and if possible maybe decrease his LE pain. He has trouble with stairs at home (he has a full flight he does daily with rail ), but would love to get back to doing yard work with less discomfort or issues. He is being seen by Dr. Perea for re-assessments a few times a year Treatment Goals Patient/Caregiver Goals improve mobility, be able to do yard work, improve strength and balance Prior Functional Status Baseline Function- Recreation/Hobbies yard work and mowing his lawn Current Functional Impairments (Reported) Functional Limitations- Recreation/ unable to mow lawn or do yard Hobbies work due to pain Personal Factors Other Personal Factors That May Effect h/o 3 back surgeries, T11 Therapy/Recovery kyphoplasty 2012, bilateral neuropathy, dyskinesia with spasms- aggravated with stress per pt; h/o depression, primary CG for with advanced PD PT-OP-C Subjective Start: 05/04/18 17:51 Freq: Status: Active Protocol: Document 10/23/18 08:19 LRN (Rec: 10/23/18 09:02 LRN [id number]) OP-PT Subjective Patient Comments Patient Comments Stiff, no change. PT-OP-D Balance Start: 05/04/18 17:51 Freq: Status: Active Protocol: Document 10/11/18 09:45 DCW (Rec: 10/11/18 10:09 DCW [id number]) OP-PT Balance Assessment Standing Balance Standing Balance Comments increased weight shift to the R with lateral standing balance on Shuttle Balance ( red) Mao Fall Scale Copyright Permission PT-OP-E Functional Tests Start: 05/04/18 17:51 Freq: Status: Active Protocol: Document 08/17/18 11:20 RCC (Rec: 08/19/18 11:52 RCC [email or web address]) Functional Tests Functional Gait Assessment Score 29 PT-OP-F Manual Assessment Start: 05/04/18 17:51 Freq: Status: Active Protocol: Document 10/11/18 09:45 DCW (Rec: 10/11/18 10:09 DCW [id number]) Manual Assessments Soft Tissue Assessment Soft Tissue Mobility Assessment Moderate tension bilateral QL, lumbar paraspinals. Radicular pain down LEs with palpation of QL, L worse than R PT-OP-G Mobility & Gait Start: 05/04/18 17:51 Freq: Status: Active Protocol: Document 10/11/18 09:45 DCW (Rec: 10/11/18 10:09 DCW [id number]) OP Gait Assessment Gait Deviations General Gait Pattern Antalgic Decreased Stride Length Wide Based Gait PT-OP-H Neuro Start: 05/04/18 17:51 Freq: Status: Active Protocol: Document 10/11/18 09:45 DCW (Rec: 10/11/18 10:09 DCW [id number]) Sensation Evaluation Gross Sensation Gross Sensation Left LE Impaired Right LE Impaired PT-OP-K Range of Motion Start: 02/28/19 17:51 Freq: Status: Active Protocol: Document 10/11/18 09:45 DCW (Rec: 10/11/18 10:09 DCW [id number]) Lumbar Spine Range of Motion Lumbar Spine Active Degrees Testing Position Standing Flexion 50 Extension 5 PT-OP-L Special Tests Start: 05/04/18 17:51 Freq: Status: Active Protocol: Document 05/04/18 16:00 RCC (Rec: 05/07/18 15:33 RCC [email or web address]) Special Tests Lumbar Spine Special Tests Vertical Spine Loading Test Results negative B Manual Traction Test Results no difference B Straight Leg Raise Test Results negative B PT-OP-M Strength Start: 05/04/18 17:51 Freq: Status: Active Protocol: Document 10/11/18 09:45 DCW (Rec: 10/11/18 10:29 DCW [id number]) Hip Strength Hip Manual Muscle Testing Right Flexion (L2) 5 Normal Extension (S1) 4 Good Abduction 4 Good Adduction 5 Normal External Rotation 4+ Good+ Internal Rotation 5 Normal Left Flexion (L2) 4+ Good+ Extension (S1) 4 Good Abduction 4 Good Adduction 5 Normal External Rotation 4+ Good+ Internal Rotation 5 Normal Knee Strength Knee Manual Muscle Testing Right Flexion (S2) 5 Normal Extension (L3) 5 Normal Left Flexion (S2) 5 Normal Extension (L3) 5 Normal Ankle/Foot Strength Ankle and Foot Manual Muscle Testing Right Dorsiflexion (L4) 4+ Good+ Plantarflexion (S1) 4 Good Inversion 5 Normal Eversion (S1) 5 Normal Left Dorsiflexion (L4) 5 Normal Plantarflexion (S1) 4 Good Inversion 5 Normal Eversion (S1) 5 Normal PT-OP-Q Treatments Start: 05/04/18 17:51 Freq: Status: Active Protocol: Document 10/23/18 08:19 LRN (Rec: 10/23/18 09:02 LRN [id number]) Cardio Equipment Recumbent Elliptical (Biodex) Duration (Minutes) 8 Resistance 4 Seat Position 11 Gym Equipment Shuttle Recovery Unilateral Squats Resistance 75 lbs Shuttle Recovery Platform Unstable Reps/Time 2 x 15 Bilateral Squats Resistance 75 Shuttle Recovery Platform Unstable Reps/Time 4 x 10 Shuttle Balance Red Details Wide & Narrow СВЕТЛАНА, Staggered, Lateral weight shift Reps/Duration 11' Therapeutic Exercises Standing Exercises Up/Down 6 steps Standing Exercise Name up/down steps Equipment Used one rail Reps/Minutes stairs x 3, 5 sets PT-OP-T Assessment and Plan Start: 05/04/18 17:51 Freq: Status: Active Protocol: Document 10/23/18 08:19 KELLEE (Rec: 10/23/18 09:02 LRN [id number]) Physical Therapy Assessment Assessment Summary Assessment Pt seems a little frustrated that he can't do more. Pt wanting to be able to do stairs at home >11 times intermittently without feeling so fatigued. Today he tolerated 5 sets of stairsx3 in between ex's with some difficulty. Physical Therapy Plan Frequency and Duration Frequency of Treatment 1x/Week Duration of Treatment 10 weeks Plan of Care Start Date 10/11/18 Plan of Care End Date 12/20/18 Next Visit Focus/Plan Next Note Type Treatment Note Next Visit Plan core and LE strengthening as tolerated, WB functional activities
--- NOTE | 2018-11-08 12:43 | PT.OTN ---
Current Diagnoses Dystonia, unspecified (11/08/18) Hereditary and idiopathic neuropathy, unspecified (11/08/18) Physical Therapy Treatment Note PT-OP-A Visit Information Start: 05/04/18 17:51 Freq: Status: Active Protocol: Document 11/08/18 12:21 AW (Rec: 11/08/18 12:43 AW [email or web address]) Out-Patient Physical Therapy Visit Information Visit Information Visit Type Treatment Note Visit Start Time 10:31 Visit Stop Time 11:11 Total Visit Minutes 40 Visit Number 23 Number of HEALTH CONSULTANT Visits 0 Evaluation Information Evaluation Date 05/04/18 PT-OP-B Current Condition Start: 05/04/18 17:51 Freq: Status: Active Protocol: Document 05/04/18 16:00 RCC (Rec: 05/07/18 15:33 RCC [email or web address]) Current Condition History of Current Condition Current Complaints B neuropathy (painful) and low back pain History of Current Condition Pt is a 62 y/o male presenting to physical therapy with a c/ o bilateral LE and low back pain. He reports low back pain is chronic, but LE pain has been worsening due to peripheral neuropathy worsening over the past year. He admits to general lower back and LE cramping and weakness noted in his legs. He does try to work on his stationary bike for 15 min 3 times per week. His has advanced Parkinson's Disease, and does have some CG help but does have to physically assist at home. He admits that he was taking narcotics for pain control but recently stopped in December of 2017. He states that the pain clinic he has attended has not helped much with pain. He would like to gain strength in his legs, improve balance and if possible maybe decrease his LE pain. He has trouble with stairs at home (he has a full flight he does daily with rail ), but would love to get back to doing yard work with less discomfort or issues. He is being seen by Dr. Perea for re-assessments a few times a year Treatment Goals Patient/Caregiver Goals improve mobility, be able to do yard work, improve strength and balance Prior Functional Status Baseline Function- Recreation/Hobbies yard work and mowing his lawn Current Functional Impairments (Reported) Functional Limitations- Recreation/ unable to mow lawn or do yard Hobbies work due to pain Personal Factors Other Personal Factors That May Effect h/o 3 back surgeries, T11 Therapy/Recovery kyphoplasty 2012, bilateral neuropathy, dyskinesia with spasms- aggravated with stress per pt; h/o depression, primary CG for with advanced PD PT-OP-C Subjective Start: 05/04/18 17:51 Freq: Status: Active Protocol: Document 11/08/18 12:21 AW (Rec: 11/08/18 12:43 AW [email or web address]) OP-PT Subjective Patient Comments Patient Comments Pt states his elbow was locked in flexion for a few days, but it has since returned to normal. Still feeling like he lacks endurance in daily activities. PT-OP-D Balance Start: 05/04/18 17:51 Freq: Status: Active Protocol: Document 10/11/18 09:45 DCW (Rec: 10/11/18 10:09 DCW [id number]) OP-PT Balance Assessment Standing Balance Standing Balance Comments increased weight shift to the R with lateral standing balance on Shuttle Balance ( red) Mao Fall Scale Copyright Permission PT-OP-E Functional Tests Start: 05/04/18 17:51 Freq: Status: Active Protocol: Document 08/17/18 11:20 RCC (Rec: 08/19/18 11:52 RCC [email or web address]) Functional Tests Functional Gait Assessment Score 29 PT-OP-F Manual Assessment Start: 05/04/18 17:51 Freq: Status: Active Protocol: Document 10/11/18 09:45 DCW (Rec: 10/11/18 10:09 DCW [id number]) Manual Assessments Soft Tissue Assessment Soft Tissue Mobility Assessment Moderate tension bilateral QL, lumbar paraspinals. Radicular pain down LEs with palpation of QL, L worse than R PT-OP-G Mobility & Gait Start: 05/04/18 17:51 Freq: Status: Active Protocol: Document 10/11/18 09:45 DCW (Rec: 10/11/18 10:09 DCW [id number]) OP Gait Assessment Gait Deviations General Gait Pattern Antalgic,Decreased Stride Length,Wide Based Gait PT-OP-H Neuro Start: 05/04/18 17:51 Freq: Status: Active Protocol: Document 10/11/18 09:45 DCW (Rec: 10/11/18 10:09 DCW [id number]) Sensation Evaluation Gross Sensation Gross Sensation Left LE Impaired,Right LE Impaired PT-OP-K Range of Motion Start: 05/04/18 17:51 Freq: Status: Active Protocol: Document 10/11/18 09:45 DCW (Rec: 10/11/18 10:09 DCW [id number]) Lumbar Spine Range of Motion Lumbar Spine Active Degrees Testing Position Standing Flexion 50 Extension 5 PT-OP-L Special Tests Start: 05/04/18 17:51 Freq: Status: Active Protocol: Document 05/04/18 16:00 RCC (Rec: 05/07/18 15:33 RCC [email or web address]) Special Tests Lumbar Spine Special Tests Vertical Spine Loading Test Results negative B Manual Traction Test Results no difference B Straight Leg Raise Test Results negative B PT-OP-M Strength Start: 05/04/18 17:51 Freq: Status: Active Protocol: Document 10/11/18 09:45 DCW (Rec: 10/11/18 10:29 DCW [id number]) Hip Strength Hip Manual Muscle Testing Right Flexion (L2) 5 Normal Extension (S1) 4 Good Abduction 4 Good Adduction 5 Normal External Rotation 4+ Good+ Internal Rotation 5 Normal Left Flexion (L2) 4+ Good+ Extension (S1) 4 Good Abduction 4 Good Adduction 5 Normal External Rotation 4+ Good+ Internal Rotation 5 Normal Knee Strength Knee Manual Muscle Testing Right Flexion (S2) 5 Normal Extension (L3) 5 Normal Left Flexion (S2) 5 Normal Extension (L3) 5 Normal Ankle/Foot Strength Ankle and Foot Manual Muscle Testing Right Dorsiflexion (L4) 4+ Good+ Plantarflexion (S1) 4 Good Inversion 5 Normal Eversion (S1) 5 Normal Left Dorsiflexion (L4) 5 Normal Plantarflexion (S1) 4 Good Inversion 5 Normal Eversion (S1) 5 Normal PT-OP-Q Treatments Start: 05/04/18 17:51 Freq: Status: Active Protocol: Document 11/08/18 12:21 AW (Rec: 11/08/18 12:43 AW [email or web address]) Cardio Equipment Recumbent Elliptical (Biodex) Duration (Minutes) 8 Resistance 4 Seat Position 11 Gym Equipment Shuttle Recovery heel raise Details heel raise Resistance 75 Shuttle Recovery Platform Stable Reps/Time 3x10 reps Bilateral Squats Details bilateral squats Resistance 125 Shuttle Recovery Platform Unstable Reps/Time 5x10 reps Shuttle Balance Red Details Wide & Narrow СВЕТЛАНА, Staggered, Lateral weight shift Reps/Duration 8 minutes Therapeutic Exercises Supine Exercises plantar flexor stretch Supine Exercise Name PF stretch Side bilateral Resistance manual Reps/Minutes 30 sec x 2 Comments contract relax hip flexor stretch Supine Exercise Name hip flexor stretch Side bilateral Resistance gravity, manual Reps/Minutes 1 min x 2 Comments deven test position Sitting Exercises marching on ball Sitting Exercise Name marching on ball Side bilateral Equipment Used 75 cm ball Reps/Minutes 2x10 reps pelvic tilt on ball Sitting Exercise Name pelvic tilt on ball Side bilateral Equipment Used 75 cm ball Reps/Minutes 2x10 reps Standing Exercises Up/Down 6 steps Standing Exercise Name up/down steps Equipment Used right rail (ascending); 5.5 steps (to 2nd floor) Reps/Minutes 14 steps x 2; 28 steps x 1 Comments Pt reported 4/10 RPE PT-OP-T Assessment and Plan Start: 05/04/18 17:51 Freq: Status: Active Protocol: Document 11/08/18 12:21 AW (Rec: 11/08/18 12:43 AW [email or web address]) Physical Therapy Assessment Assessment Summary Assessment Pt advanced stair climbing tolerance today, but has complaints of cramping around hips and calves. Overall activity tolerance is improved as evidenced by daily yard work for at least an hour with decreased pain. Physical Therapy Plan Frequency and Duration Frequency of Treatment 1x/Week Duration of Treatment 10 weeks Plan of Care Start Date 10/11/18 Plan of Care End Date 12/20/18 Next Visit Focus/Plan Next Note Type Treatment Note Next Visit Plan core and LE strengthening as tolerated, WB functional activities
--- NOTE | 2018-11-22 14:39 | PT.OTN ---
Current Diagnoses Dystonia, unspecified (11/22/18) Hereditary and idiopathic neuropathy, unspecified (11/22/18) Physical Therapy Treatment Note PT-OP-A Visit Information Start: 05/04/18 17:51 Freq: Status: Active Protocol: Document 11/22/18 14:25 GGD (Rec: 11/22/18 14:39 GGD [email or web address]) Out-Patient Physical Therapy Visit Information Visit Information Visit Type Treatment Note Visit Start Time 13:00 Visit Stop Time 13:40 Total Visit Minutes 40 Visit Number 24 Number of INDUSTRIAL RETROFIT DESIGNER Visits 1 Evaluation Information Evaluation Date 05/04/18 PT-OP-B Current Condition Start: 05/04/18 17:51 Freq: Status: Active Protocol: Document 05/04/18 16:00 RCC (Rec: 05/07/18 15:33 RCC [email or web address]) Current Condition History of Current Condition Current Complaints B neuropathy (painful) and low back pain History of Current Condition Pt is a 62 y/o male presenting to physical therapy with a c/ o bilateral LE and low back pain. He reports low back pain is chronic, but LE pain has been worsening due to peripheral neuropathy worsening over the past year. He admits to general lower back and LE cramping and weakness noted in his legs. He does try to work on his stationary bike for 15 min 3 times per week. His has advanced Parkinson's Disease, and does have some CG help but does have to physically assist at home. He admits that he was taking narcotics for pain control but recently stopped in December of 2017. He states that the pain clinic he has attended has not helped much with pain. He would like to gain strength in his legs, improve balance and if possible maybe decrease his LE pain. He has trouble with stairs at home (he has a full flight he does daily with rail ), but would love to get back to doing yard work with less discomfort or issues. He is being seen by Dr. Perea for re-assessments a few times a year Treatment Goals Patient/Caregiver Goals improve mobility, be able to do yard work, improve strength and balance Prior Functional Status Baseline Function- Recreation/Hobbies yard work and mowing his lawn Current Functional Impairments (Reported) Functional Limitations- Recreation/ unable to mow lawn or do yard Hobbies work due to pain Personal Factors Other Personal Factors That May Effect h/o 3 back surgeries, T11 Therapy/Recovery kyphoplasty 2012, bilateral neuropathy, dyskinesia with spasms- aggravated with stress per pt; h/o depression, primary CG for with advanced PD PT-OP-C Subjective Start: 05/04/18 17:51 Freq: Status: Active Protocol: Document 11/22/18 14:25 GGD (Rec: 11/22/18 14:39 GGD [email or web address]) OP-PT Subjective Patient Comments Patient Comments Pt states his left hip has been sore the last few days. PT-OP-D Balance Start: 05/04/18 17:51 Freq: Status: Active Protocol: Document 10/11/18 09:45 DCW (Rec: 10/11/18 10:09 DCW [id number]) OP-PT Balance Assessment Standing Balance Standing Balance Comments increased weight shift to the R with lateral standing balance on Shuttle Balance ( red) Mao Fall Scale Copyright Permission PT-OP-E Functional Tests Start: 05/04/18 17:51 Freq: Status: Active Protocol: Document 08/17/18 11:20 RCC (Rec: 08/19/18 11:52 RCC [email or web address]) Functional Tests Functional Gait Assessment Score 29 PT-OP-F Manual Assessment Start: 05/04/18 17:51 Freq: Status: Active Protocol: Document 10/11/18 09:45 DCW (Rec: 10/11/18 10:09 DCW [id number]) Manual Assessments Soft Tissue Assessment Soft Tissue Mobility Assessment Moderate tension bilateral QL, lumbar paraspinals. Radicular pain down LEs with palpation of QL, L worse than R PT-OP-G Mobility & Gait Start: 05/04/18 17:51 Freq: Status: Active Protocol: Document 10/11/18 09:45 DCW (Rec: 10/11/18 10:09 DCW [id number]) OP Gait Assessment Gait Deviations General Gait Pattern Antalgic,Decreased Stride Length,Wide Based Gait PT-OP-H Neuro Start: 05/04/18 17:51 Freq: Status: Active Protocol: Document 10/11/18 09:45 DCW (Rec: 10/11/18 10:09 DCW [id number]) Sensation Evaluation Gross Sensation Gross Sensation Left LE Impaired,Right LE Impaired PT-OP-K Range of Motion Start: 05/04/18 17:51 Freq: Status: Active Protocol: Document 10/11/18 09:45 DCW (Rec: 10/11/18 10:09 DCW [id number]) Lumbar Spine Range of Motion Lumbar Spine Active Degrees Testing Position Standing Flexion 50 Extension 5 PT-OP-L Special Tests Start: 05/04/18 17:51 Freq: Status: Active Protocol: Document 05/04/18 16:00 RCC (Rec: 05/07/18 15:33 RCC [email or web address]) Special Tests Lumbar Spine Special Tests Vertical Spine Loading Test Results negative B Manual Traction Test Results no difference B Straight Leg Raise Test Results negative B PT-OP-M Strength Start: 05/04/18 17:51 Freq: Status: Active Protocol: Document 10/11/18 09:45 DCW (Rec: 10/11/18 10:29 DCW [id number]) Hip Strength Hip Manual Muscle Testing Right Flexion (L2) 5 Normal Extension (S1) 4 Good Abduction 4 Good Adduction 5 Normal External Rotation 4+ Good+ Internal Rotation 5 Normal Left Flexion (L2) 4+ Good+ Extension (S1) 4 Good Abduction 4 Good Adduction 5 Normal External Rotation 4+ Good+ Internal Rotation 5 Normal Knee Strength Knee Manual Muscle Testing Right Flexion (S2) 5 Normal Extension (L3) 5 Normal Left Flexion (S2) 5 Normal Extension (L3) 5 Normal Ankle/Foot Strength Ankle and Foot Manual Muscle Testing Right Dorsiflexion (L4) 4+ Good+ Plantarflexion (S1) 4 Good Inversion 5 Normal Eversion (S1) 5 Normal Left Dorsiflexion (L4) 5 Normal Plantarflexion (S1) 4 Good Inversion 5 Normal Eversion (S1) 5 Normal PT-OP-Q Treatments Start: 05/04/18 17:51 Freq: Status: Active Protocol: Document 11/22/18 14:25 GGD (Rec: 11/22/18 14:39 GGD [email or web address]) Cardio Equipment Recumbent Elliptical (Biodex) Duration (Minutes) 8 Resistance 4 Seat Position 11 Gym Equipment Shuttle Recovery heel raise Details heel raise Resistance 100 Shuttle Recovery Platform Stable Reps/Time 3x10 reps Bilateral Squats Details bilateral squats Resistance 125 Shuttle Recovery Platform Stable Reps/Time 4x10 reps Shuttle Balance Red Details Wide & Narrow СВЕТЛАНА, Staggered, Lateral weight shift Reps/Duration 8 minutes Therapeutic Ball LTR Exercise Details lower trunk rotation Reps/Duration x15 each direction Therapeutic Exercises Supine Exercises figure 4 stretch Supine Exercise Name piriformis str. Side bilateral Reps/Minutes 2 x psoas stretch Supine Exercise Name LE hanging off of EOB Side bilateral Reps/Minutes 3x30 sec each Standing Exercises Up/Down 6 steps Standing Exercise Name up/down steps Equipment Used right rail (ascending); 5.5 steps (to 2nd floor) Reps/Minutes 28 steps x 2 lunges Standing Exercise Name lunges Side bilateral Reps/Minutes x10 each Comments // bars lateral walks Standing Exercise Name side step Side bilateral Resistance blue Reps/Minutes 20ft x 3 HC stretch Side bilateral Reps/Minutes 1 min Comments SALO PT-OP-T Assessment and Plan Start: 05/04/18 17:51 Freq: Status: Active Protocol: Document 11/22/18 14:25 GGD (Rec: 11/22/18 14:39 GGD [email or web address]) Physical Therapy Assessment Goals Recreational activities Impairment unable to do yard work due to pain. Short Term Goal (STG) Pt will report being able to do yard work for 30 min with pain rated 2/10 or less. ( Pt able to do 45 min of yard work with increase pain to 6/10) 08/17/18: 30 min with 2/10 pain or less. STG Duration achieved Instant Printer Operator Goal (LTG) Pt will report being able to do yard work for 1 hr with pain rated 2/10 or less prior to d/c. LTG Duration 12/11/18 - Improving (1 hour, 4 /10 pain) LE strength Impairment LE weakness Jail Goal (LTG) Pt with score 5/5 with all LE manual muscle testing prior to d/c to assist with improved tolerance to managing stairs at home. 08/17/18: some progress LTG Duration 12/11/18 - Improving Functional Gait Assessment Impairment Functional Gait Score 25/30 Jail Goal (LTG) Pt will improve to >27/30 with Functional Gait Assessment score to demonstrate improvements with dynamic standing balance and gait equal to peers of his own age prior to d/c. 06/09/18: 30 06/28/18: 30 08/17/18: achieved, 30 LTG Duration achieved LEFS Impairment Lower Extremity Functional Scale: 38/80 Short Term Goal (STG) Pt will improve with Lower Extremity Functional scale to 43 or greater, to demonstrate improvements with functional mobility and daily tasks. 06/28/18 achieved STG Duration achieved Instant Printer Operator Goal (LTG) Pt will improve with Lower Extremity Functional scale to 48 or greater, to demonstrate improvements with functional mobility and daily tasks. 06/28/18: 48/80 LTG Duration achieved Assessment Summary Assessment Pt had decrease in hip pain with exercises. He did have mild improvement in tolerance to stair mobility. He did fatigue with strengthening. Physical Therapy Plan Frequency and Duration Frequency of Treatment 1x/Week Duration of Treatment 10 weeks Plan of Care Start Date 10/11/18 Plan of Care End Date 12/20/18 Next Visit Focus/Plan Next Note Type Treatment Note Next Visit Plan core and LE strengthening as tolerated, WB functional activities
--- NOTE | 2018-12-06 10:31 | PT.OTN ---
Current Diagnoses Dystonia, unspecified (12/06/18) Hereditary and idiopathic neuropathy, unspecified (12/06/18) Physical Therapy Treatment Note PT-OP-A Visit Information Start: 05/04/18 17:51 Freq: Status: Active Protocol: Document 12/06/18 09:45 DCW (Rec: 12/06/18 10:31 DCW [id number]) Out-Patient Physical Therapy Visit Information Visit Information Visit Type Treatment Note Visit Start Time 09:45 Visit Stop Time 10:30 Total Visit Minutes 45 Visit Number 25 Number of TALK SHOW HOST Visits 0 Evaluation Information Evaluation Date 05/04/18 PT-OP-B Current Condition Start: 05/04/18 17:51 Freq: Status: Active Protocol: Document 05/04/18 16:00 RCC (Rec: 05/07/18 15:33 RCC [email or web address]) Current Condition History of Current Condition Current Complaints B neuropathy (painful) and low back pain History of Current Condition Pt is a 62 y/o male presenting to physical therapy with a c/ o bilateral LE and low back pain. He reports low back pain is chronic, but LE pain has been worsening due to peripheral neuropathy worsening over the past year. He admits to general lower back and LE cramping and weakness noted in his legs. He does try to work on his stationary bike for 15 min 3 times per week. His has advanced Parkinson's Disease, and does have some CG help but does have to physically assist at home. He admits that he was taking narcotics for pain control but recently stopped in December of 2017. He states that the pain clinic he has attended has not helped much with pain. He would like to gain strength in his legs, improve balance and if possible maybe decrease his LE pain. He has trouble with stairs at home (he has a full flight he does daily with rail ), but would love to get back to doing yard work with less discomfort or issues. He is being seen by Dr. Perea for re-assessments a few times a year Treatment Goals Patient/Caregiver Goals improve mobility, be able to do yard work, improve strength and balance Prior Functional Status Baseline Function- Recreation/Hobbies yard work and mowing his lawn Current Functional Impairments (Reported) Functional Limitations- Recreation/ unable to mow lawn or do yard Hobbies work due to pain Personal Factors Other Personal Factors That May Effect h/o 3 back surgeries, T11 Therapy/Recovery kyphoplasty 2012, bilateral neuropathy, dyskinesia with spasms- aggravated with stress per pt; h/o depression, primary CG for with advanced PD PT-OP-C Subjective Start: 05/04/18 17:51 Freq: Status: Active Protocol: Document 12/06/18 09:45 DCW (Rec: 12/06/18 10:31 DCW [id number]) OP-PT Subjective Patient Comments Patient Comments Pt reports his hip has still been pretty tight, but it hasn 't been spasming like it was last time he was here. Pt notes that he has more stamina than he used to, but he still has trouble with fatigue on stairs. PT-OP-D Balance Start: 05/04/18 17:51 Freq: Status: Active Protocol: Document 10/11/18 09:45 DCW (Rec: 10/11/18 10:09 DCW [id number]) OP-PT Balance Assessment Standing Balance Standing Balance Comments increased weight shift to the R with lateral standing balance on Shuttle Balance ( red) Mao Fall Scale Copyright Permission PT-OP-E Functional Tests Start: 05/04/18 17:51 Freq: Status: Active Protocol: Document 08/17/18 11:20 RCC (Rec: 08/19/18 11:52 RCC [email or web address]) Functional Tests Functional Gait Assessment Score 29 PT-OP-F Manual Assessment Start: 05/04/18 17:51 Freq: Status: Active Protocol: Document 10/11/18 09:45 DCW (Rec: 10/11/18 10:09 DCW [id number]) Manual Assessments Soft Tissue Assessment Soft Tissue Mobility Assessment Moderate tension bilateral QL, lumbar paraspinals. Radicular pain down LEs with palpation of QL, L worse than R PT-OP-G Mobility & Gait Start: 05/04/18 17:51 Freq: Status: Active Protocol: Document 10/11/18 09:45 DCW (Rec: 10/11/18 10:09 DCW [id number]) OP Gait Assessment Gait Deviations General Gait Pattern Antalgic,Decreased Stride Length,Wide Based Gait PT-OP-H Neuro Start: 05/04/18 17:51 Freq: Status: Active Protocol: Document 10/11/18 09:45 DCW (Rec: 10/11/18 10:09 DCW [id number]) Sensation Evaluation Gross Sensation Gross Sensation Left LE Impaired,Right LE Impaired PT-OP-K Range of Motion Start: 05/04/18 17:51 Freq: Status: Active Protocol: Document 10/11/18 09:45 DCW (Rec: 10/11/18 10:09 DCW [id number]) Lumbar Spine Range of Motion Lumbar Spine Active Degrees Testing Position Standing Flexion 50 Extension 5 PT-OP-L Special Tests Start: 05/04/18 17:51 Freq: Status: Active Protocol: Document 05/04/18 16:00 RCC (Rec: 05/07/18 15:33 RCC [email or web address]) Special Tests Lumbar Spine Special Tests Vertical Spine Loading Test Results negative B Manual Traction Test Results no difference B Straight Leg Raise Test Results negative B PT-OP-M Strength Start: 05/04/18 17:51 Freq: Status: Active Protocol: Document 10/11/18 09:45 DCW (Rec: 10/11/18 10:29 DCW [id number]) Hip Strength Hip Manual Muscle Testing Right Flexion (L2) 5 Normal Extension (S1) 4 Good Abduction 4 Good Adduction 5 Normal External Rotation 4+ Good+ Internal Rotation 5 Normal Left Flexion (L2) 4+ Good+ Extension (S1) 4 Good Abduction 4 Good Adduction 5 Normal External Rotation 4+ Good+ Internal Rotation 5 Normal Knee Strength Knee Manual Muscle Testing Right Flexion (S2) 5 Normal Extension (L3) 5 Normal Left Flexion (S2) 5 Normal Extension (L3) 5 Normal Ankle/Foot Strength Ankle and Foot Manual Muscle Testing Right Dorsiflexion (L4) 4+ Good+ Plantarflexion (S1) 4 Good Inversion 5 Normal Eversion (S1) 5 Normal Left Dorsiflexion (L4) 5 Normal Plantarflexion (S1) 4 Good Inversion 5 Normal Eversion (S1) 5 Normal PT-OP-Q Treatments Start: 05/04/18 17:51 Freq: Status: Active Protocol: Document 12/06/18 09:45 DCW (Rec: 12/06/18 10:31 DCW [id number]) Cardio Equipment Recumbent Elliptical (Biodex) Duration (Minutes) 6 Resistance 5 Seat Position 11 Gym Equipment Shuttle Recovery heel raise Details heel raise Resistance 100 Shuttle Recovery Platform Stable Reps/Time 3x10 reps Unilateral Squats Resistance 75 lbs Shuttle Recovery Platform Stable Reps/Time x25 Bilateral Squats Details bilateral squats Resistance 125 Shuttle Recovery Platform Stable Reps/Time x30 Shuttle Balance Red Details Wide & Narrow СВЕТЛАНА, Staggered, Lateral weight shift Therapeutic Exercises Sitting Exercises marching on ball Sitting Exercise Name marching on ball Side bilateral Equipment Used 75 cm ball Reps/Minutes 2x10 reps Standing Exercises Up/Down 6 steps Standing Exercise Name up/down steps Equipment Used right rail (ascending); 5.5 steps (to 2nd floor) Reps/Minutes 28 steps x 2 Comments RPE 8/10 in legs, 2/10 the rest of me lunges Standing Exercise Name lunges Side bilateral Reps/Minutes x10 each Comments // bars lateral walks Standing Exercise Name side step Side bilateral Resistance blue Reps/Minutes 20ft x 3 HC stretch Side bilateral Reps/Minutes 1 min Comments SALO PT-OP-T Assessment and Plan Start: 05/04/18 17:51 Freq: Status: Active Protocol: Document 12/06/18 09:45 DCW (Rec: 12/06/18 10:31 DCW [id number]) Physical Therapy Assessment Goals Recreational activities Impairment unable to do yard work due to pain. Short Term Goal (STG) Pt will report being able to do yard work for 30 min with pain rated 2/10 or less. ( Pt able to do 45 min of yard work with increase pain to 6/10) 08/17/18: 30 min with 2/10 pain or less. STG Duration achieved Skilled Nursing Goal (LTG) Pt will report being able to do yard work for 1 hr with pain rated 2/10 or less prior to d/c. LTG Duration 12/11/18 - Improving (1 hour, 4 /10 pain) LE strength Impairment LE weakness Last Cleaner Goal (LTG) Pt with score 5/5 with all LE manual muscle testing prior to d/c to assist with improved tolerance to managing stairs at home. 08/17/18: some progress LTG Duration 12/11/18 - Improving Functional Gait Assessment Impairment Functional Gait Score 25/30 Last Cleaner Goal (LTG) Pt will improve to >27/30 with Functional Gait Assessment score to demonstrate improvements with dynamic standing balance and gait equal to peers of his own age prior to d/c. 06/09/18: 06/28/18: 08/17/18: achieved, LTG Duration achieved LEFS Impairment Lower Extremity Functional Scale: 38/80 Short Term Goal (STG) Pt will improve with Lower Extremity Functional scale to 43 or greater, to demonstrate improvements with functional mobility and daily tasks. 06/28/18 achieved STG Duration achieved Last Cleaner Goal (LTG) Pt will improve with Lower Extremity Functional scale to 48 or greater, to demonstrate improvements with functional mobility and daily tasks. 06/28/18: 48/80 LTG Duration achieved Assessment Summary Assessment Pt showing improved activity tolerance, stability, and strength since initial evaluation. Next visit will reassess for continued treatment or discharge. Physical Therapy Plan Frequency and Duration Frequency of Treatment 1x/Week Duration of Treatment 10 weeks Plan of Care Start Date 10/11/18 Plan of Care End Date 12/20/18 Next Visit Focus/Plan Next Note Type Progress Note Next Visit Plan core and LE strengthening as tolerated, WB functional activities
--- NOTE | 2019-01-03 11:36 | PT.OTN ---
Current Diagnoses Dystonia, unspecified (01/03/19) Hereditary and idiopathic neuropathy, unspecified (01/03/19) Physical Therapy Treatment Note PT-OP-A Visit Information Start: 05/04/18 17:51 Freq: Status: Active Protocol: Document 01/03/19 11:15 DCW (Rec: 01/03/19 11:35 DCW [id number]) Out-Patient Physical Therapy Visit Information Visit Information Visit Type Discharge Summary Visit Start Time 11:15 Visit Stop Time 11:31 Total Visit Minutes 16 Visit Number 26 Number of CEMENTER HAND Visits 0 Evaluation Information Evaluation Date 05/04/18 PT-OP-B Current Condition Start: 05/04/18 17:51 Freq: Status: Active Protocol: Document 05/04/18 16:00 RCC (Rec: 05/07/18 15:33 RCC [email or web address]) Current Condition History of Current Condition Current Complaints B neuropathy (painful) and low back pain History of Current Condition Pt is a 62 y/o male presenting to physical therapy with a c/ o bilateral LE and low back pain. He reports low back pain is chronic, but LE pain has been worsening due to peripheral neuropathy worsening over the past year. He admits to general lower back and LE cramping and weakness noted in his legs. He does try to work on his stationary bike for 15 min 3 times per week. His has advanced Parkinson's Disease, and does have some CG help but does have to physically assist at home. He admits that he was taking narcotics for pain control but recently stopped in December of 2017. He states that the pain clinic he has attended has not helped much with pain. He would like to gain strength in his legs, improve balance and if possible maybe decrease his LE pain. He has trouble with stairs at home (he has a full flight he does daily with rail ), but would love to get back to doing yard work with less discomfort or issues. He is being seen by Dr. Perea for re-assessments a few times a year Treatment Goals Patient/Caregiver Goals improve mobility, be able to do yard work, improve strength and balance Prior Functional Status Baseline Function- Recreation/Hobbies yard work and mowing his lawn Current Functional Impairments (Reported) Functional Limitations- Recreation/ unable to mow lawn or do yard Hobbies work due to pain Personal Factors Other Personal Factors That May Effect h/o 3 back surgeries, T11 Therapy/Recovery kyphoplasty 2012, bilateral neuropathy, dyskinesia with spasms- aggravated with stress per pt; h/o depression, primary CG for with advanced PD PT-OP-C Subjective Start: 05/04/18 17:51 Freq: Status: Active Protocol: Document 01/03/19 11:15 DCW (Rec: 01/03/19 11:35 DCW [id number]) OP-PT Subjective Patient Comments Patient Comments I don't think I'm supposed to be herre, but I knew we were just doing some retesting, so I came anyway. Pt reports he recently had a stent put in, and is under activity restrictions. PT-OP-D Balance Start: 05/04/18 17:51 Freq: Status: Active Protocol: Document 10/11/18 09:45 DCW (Rec: 10/11/18 10:09 DCW [id number]) OP-PT Balance Assessment Standing Balance Standing Balance Comments increased weight shift to the R with lateral standing balance on Shuttle Balance ( red) Mao Fall Scale Copyright Permission PT-OP-E Functional Tests Start: 05/04/18 17:51 Freq: Status: Active Protocol: Document 08/17/18 11:20 RCC (Rec: 08/19/18 11:52 RCC [email or web address]) Functional Tests Functional Gait Assessment Score 29 PT-OP-F Manual Assessment Start: 05/04/18 17:51 Freq: Status: Active Protocol: Document 10/11/18 09:45 DCW (Rec: 10/11/18 10:09 DCW [id number]) Manual Assessments Soft Tissue Assessment Soft Tissue Mobility Assessment Moderate tension bilateral QL, lumbar paraspinals. Radicular pain down LEs with palpation of QL, L worse than R PT-OP-G Mobility & Gait Start: 05/04/18 17:51 Freq: Status: Active Protocol: Document 01/03/19 11:15 DCW (Rec: 01/03/19 11:31 DCW [id number]) OP Gait Assessment Gait Deviations General Gait Pattern Antalgic,Decreased Stride Length,Wide Based Gait PT-OP-H Neuro Start: 05/04/18 17:51 Freq: Status: Active Protocol: Document 01/03/19 11:15 DCW (Rec: 01/03/19 11:31 DCW [id number]) Sensation Evaluation Gross Sensation Gross Sensation Left LE Impaired,Right LE Impaired PT-OP-K Range of Motion Start: 05/04/18 17:51 Freq: Status: Active Protocol: Document 01/03/19 11:15 DCW (Rec: 01/03/19 11:31 DCW [id number]) Lumbar Spine Range of Motion Lumbar Spine Active Degrees Testing Position Standing Flexion 50 Extension 10 PT-OP-L Special Tests Start: 05/04/18 17:51 Freq: Status: Active Protocol: Document 05/04/18 16:00 RCC (Rec: 05/07/18 15:33 RCC [email or web address]) Special Tests Lumbar Spine Special Tests Vertical Spine Loading Test Results negative B Manual Traction Test Results no difference B Straight Leg Raise Test Results negative B PT-OP-M Strength Start: 05/04/18 17:51 Freq: Status: Active Protocol: Document 01/03/19 11:15 DCW (Rec: 01/03/19 11:31 DCW [id number]) Hip Strength Hip Manual Muscle Testing Right Flexion (L2) 5 Normal Abduction 5 Normal Adduction 5 Normal External Rotation 5 Normal Internal Rotation 5 Normal Left Flexion (L2) 5 Normal Abduction 5 Normal Adduction 5 Normal External Rotation 5 Normal Internal Rotation 5 Normal Knee Strength Knee Manual Muscle Testing Right Flexion (S2) 5 Normal Extension (L3) 5 Normal Left Flexion (S2) 5 Normal Extension (L3) 5 Normal Ankle/Foot Strength Ankle and Foot Manual Muscle Testing Right Dorsiflexion (L4) 5 Normal Plantarflexion (S1) 5 Normal Inversion 5 Normal Eversion (S1) 5 Normal Left Dorsiflexion (L4) 5 Normal Plantarflexion (S1) 4+ Good+ Inversion 5 Normal Eversion (S1) 5 Normal PT-OP-Q Treatments Start: 05/04/18 17:51 Freq: Status: Active Protocol: Document 12/06/18 09:45 DCW (Rec: 12/06/18 10:31 DCW [id number]) Cardio Equipment Recumbent Elliptical (Biodex) Duration (Minutes) 6 Resistance 5 Seat Position 11 Gym Equipment Shuttle Recovery heel raise Details heel raise Resistance 100 Shuttle Recovery Platform Stable Reps/Time 3x10 reps Unilateral Squats Resistance 75 lbs Shuttle Recovery Platform Stable Reps/Time x25 Bilateral Squats Details bilateral squats Resistance 125 Shuttle Recovery Platform Stable Reps/Time x30 Shuttle Balance Red Details Wide & Narrow СВЕТЛАНА, Staggered, Lateral weight shift Therapeutic Exercises Sitting Exercises marching on ball Sitting Exercise Name marching on ball Side bilateral Equipment Used 75 cm ball Reps/Minutes 2x10 reps Standing Exercises Up/Down 6 steps Standing Exercise Name up/down steps Equipment Used right rail (ascending); 5.5 steps (to 2nd floor) Reps/Minutes 28 steps x 2 Comments RPE 8/10 in legs, 2/10 the rest of me lunges Standing Exercise Name lunges Side bilateral Reps/Minutes x10 each Comments // bars lateral walks Standing Exercise Name side step Side bilateral Resistance blue Reps/Minutes 20ft x 3 HC stretch Side bilateral Reps/Minutes 1 min Comments SALO PT-OP-T Assessment and Plan Start: 05/04/18 17:51 Freq: Status: Active Protocol: Document 01/03/19 11:15 DCW (Rec: 01/03/19 11:35 DCW [id number]) Physical Therapy Assessment Goals Recreational activities Impairment unable to do yard work due to pain. Short Term Goal (STG) Pt will report being able to do yard work for 30 min with pain rated 2/10 or less. ( Pt able to do 45 min of yard work with increase pain to 6/10) 08/17/18: 30 min with 2/10 pain or less. STG Duration achieved Electrolytic Etcher Goal (LTG) Pt will report being able to do yard work for 1 hr with pain rated 2/10 or less prior to d/c. LTG Duration Met LE strength Impairment LE weakness Electrolytic Etcher Goal (LTG) Pt with score 5/5 with all LE manual muscle testing prior to d/c to assist with improved tolerance to managing stairs at home. 08/17/18: some progress LTG Duration Met Functional Gait Assessment Impairment Functional Gait Score 25/30 Electrolytic Etcher Goal (LTG) Pt will improve to >27/30 with Functional Gait Assessment score to demonstrate improvements with dynamic standing balance and gait equal to peers of his own age prior to d/c. 06/09/18: 06/28/18: 08/17/18: achieved, 2930 LTG Duration achieved LEFS Impairment Lower Extremity Functional Scale: 38/80 Short Term Goal (STG) Pt will improve with Lower Extremity Functional scale to 43 or greater, to demonstrate improvements with functional mobility and daily tasks. 06/28/18 achieved STG Duration achieved Fci Goal (LTG) Pt will improve with Lower Extremity Functional scale to 48 or greater, to demonstrate improvements with functional mobility and daily tasks. 06/28/18: 48/80 LTG Duration achieved Assessment Summary Assessment Activity was limited today due to pt's recent stent placement, however testing showed pt has met all goals, and is appropriate for d/c at this time. Pt agreeable to this course of action. Physical Therapy Plan Frequency and Duration Frequency of Treatment 1x/Week Duration of Treatment 1 week Plan of Care Start Date 01/03/19 Plan of Care End Date 01/10/19 Discharge Physical Therapy Discharge Reasons Goals Met Next Visit Focus/Plan Next Note Type Discharge Summary
--- NOTE | 2019-01-03 11:36 | PT.OPPOC ---
Current Diagnoses Dystonia, unspecified (01/03/19) Hereditary and idiopathic neuropathy, unspecified (01/03/19) Visit Care Team Role Provider Type Frankie Martinez MD Primary Care Provider Physician Specialty: Internal Medicine Address: [address] [place] [address], [address], [address] Email: [email or web address] Latonya Perea MD Attending Provider Non-Staff Specialty: Neurology Address: [address] [place] [address], [id number] Email: Plan Of Care PT-OP-T Assessment and Plan Start: 05/04/18 17:51 Freq: Status: Active Protocol: Document 01/03/19 11:15 DCW (Rec: 01/03/19 11:35 DCW [id number]) Physical Therapy Assessment Goals Recreational activities Impairment unable to do yard work due to pain. Short Term Goal (STG) Pt will report being able to do yard work for 30 min with pain rated 2/10 or less. ( Pt able to do 45 min of yard work with increase pain to 6/10) 08/17/18: 30 min with 2/10 pain or less. STG Duration achieved Administrative Office Specialist Goal (LTG) Pt will report being able to do yard work for 1 hr with pain rated 2/10 or less prior to d/c. LTG Duration Met LE strength Impairment LE weakness Administrative Office Specialist Goal (LTG) Pt with score 5/5 with all LE manual muscle testing prior to d/c to assist with improved tolerance to managing stairs at home. 08/17/18: some progress LTG Duration Met Functional Gait Assessment Impairment Functional Gait Score 25/30 Skilled Nursing Goal (LTG) Pt will improve to >27/30 with Functional Gait Assessment score to demonstrate improvements with dynamic standing balance and gait equal to peers of his own age prior to d/c. 06/09/18: 06/28/18: 08/17/18: achieved, 29/30 LTG Duration achieved LEFS Impairment Lower Extremity Functional Scale: 38/80 Short Term Goal (STG) Pt will improve with Lower Extremity Functional scale to 43 or greater, to demonstrate improvements with functional mobility and daily tasks. 06/28/18 achieved STG Duration achieved Administrative Office Specialist Goal (LTG) Pt will improve with Lower Extremity Functional scale to 48 or greater, to demonstrate improvements with functional mobility and daily tasks. 06/28/18: 48/80 LTG Duration achieved Assessment Summary Assessment Activity was limited today due to pt's recent stent placement, however testing showed pt has met all goals, and is appropriate for d/c at this time. Pt agreeable to this course of action. Physical Therapy Plan Frequency and Duration Frequency of Treatment 1x/Week Duration of Treatment 1 week Plan of Care Start Date 01/03/19 Plan of Care End Date 01/10/19 Discharge Physical Therapy Discharge Reasons Goals Met Next Visit Focus/Plan Next Note Type Discharge Summary Plan of Care Dates Plan of Care Start Date 01/03/19 Plan of Care End Date 01/10/19
== END 2019-01-03 16:22 | disposition home or self-care (01) ==
LOC: PHYS 11:15
PROVIDERS: PCP Internal Medicine; Visit Provider Psychiatry & Neurology Neurology
DX: G60.9 Hereditary and idiopathic neuropathy, unspecified (principal); G24.9 Dystonia, unspecified
CPT/HCPCS: 97014; 97110; 97112; 97140; 97161; 97530; G0283

== ENCOUNTER → 2019-02-12 08:12 | Outpatient (CLI) | payer OTHER, SELFPAY ==
[2019-02-12 09:04] LABS: BUN Creatinine Ratio 19.1 (6-22); Blood Urea Nitrogen 21 mg/dL (9-20); Calcium 9.3 mg/dL (8.4-10.2); Carbon Dioxide 27 mmol/L (22-32); Chloride 106 mmol/L (98-107); Estimated Glomerular Filt Rate > 60.0 mL/min (>60); Glucose 114 mg/dL (80-110); HEMOLYSIS < 15 (0-50); Potassium 4.7 mmol/L (3.4-5.1); Sodium 141 mmol/L (137-145)
== END ==
PROVIDERS: Family Provider Internal Medicine; PCP Internal Medicine; Visit Provider Internal Medicine Cardiovascular Disease
DX: I20.8 Other forms of angina pectoris (principal); I21.4 Non-ST elevation (NSTEMI) myocardial infarction; R94.39 Abnormal result of other cardiovascular function study; R00.1 Bradycardia, unspecified; E78.5 Hyperlipidemia, unspecified
CPT/HCPCS: 36415; 80048

== ENCOUNTER 2019-05-14 11:30 | Outpatient (RCR) | payer MEDICARE, OTHER, SELFPAY | END 2019-05-17 07:34 | LOC: CAR 11:30 | PROVIDERS: PCP Internal Medicine; Visit Provider Internal Medicine Cardiovascular Disease | DX: I28.0 Arteriovenous fistula of pulmonary vessels (principal) | CPT/HCPCS: 93798 ==

== ENCOUNTER → 2020-03-14 11:17 | Outpatient (CLI) | payer MEDICARE, SELFPAY ==
[2020-03-14 12:04] LABS: Alanine Aminotransferase 28 IU/L (<50); Albumin 4.4 g/dL (3.5-5.0); Albumin Globulin Ratio 1.5 (1.0-2.8); Alkaline Phosphatase 90 U/L (38-126); Aspartate Aminotransferase 30 IU/L (17-59); BUN Creatinine Ratio 15.8 (6-22); Bilirubin Total 0.4 mg/dL (0.2-1.3); Blood Urea Nitrogen 16 mg/dL (9-20); Calcium 9.3 mg/dL (8.4-10.2); Carbon Dioxide 30 mmol/L (22-32); Chloride 106 mmol/L (98-107); Cholesterol 162 mg/dL (140-199); Estimated Glomerular Filt Rate > 60.0 mL/min (>60); Globulin 2.9 g/dL (1.7-4.1); Glucose 120 mg/dL (80-110); HDL Cholesterol 28 mg/dL (40-60); HEMOLYSIS < 15 (0-50); LDL Cholesterol Calculated 86 mg/dL (<100); Potassium 4.7 mmol/L (3.4-5.1); Sodium 139 mmol/L (137-145); Total Protein 7.3 g/dL (6.3-8.2); Triglycerides 242 mg/dL (35-150)
== END ==
PROVIDERS: Family Provider Internal Medicine; PCP Internal Medicine; Referring Provider Internal Medicine Cardiovascular Disease; Visit Provider Internal Medicine Cardiovascular Disease
DX: E78.5 Hyperlipidemia, unspecified (principal)
CPT/HCPCS: 36415; 80053; 80061

== ENCOUNTER → 2020-05-21 12:39 | Outpatient (CLI) | payer MEDICARE, SELFPAY ==
[2020-05-21] MEDS: COVID-19 VACC #1, MRNA(MOD) 100 MCG/0.5 ML VIAL IM (12:55)
== END ==
PROVIDERS: Family Provider Internal Medicine; PCP Internal Medicine; Visit Provider Internal Medicine
DX: Z23 Encounter for immunization (principal)
CPT/HCPCS: 0011A; 91301

== ENCOUNTER → 2020-06-18 10:49 | Outpatient (CLI) | payer MEDICARE, SELFPAY ==
[2020-06-18] MEDS: COVID-19 VACC #2, MRNA(MOD) 100 MCG/0.5 ML VIAL IM (11:03)
== END ==
PROVIDERS: Family Provider Internal Medicine; PCP Internal Medicine; Visit Provider Internal Medicine
DX: Z23 Encounter for immunization (principal)
CPT/HCPCS: 0012A; 91301

== ENCOUNTER → 2021-12-17 08:37 | Outpatient (CLI) | payer MEDICARE, SELFPAY ==
[2021-12-17 09:52] LABS: Cholesterol 168 mg/dL (140-199); HDL Cholesterol 32 mg/dL (40-60); LDL Cholesterol Calculated 93 mg/dL (<100); Triglycerides 217 mg/dL (35-150)
== END ==
PROVIDERS: Family Provider Internal Medicine; PCP Internal Medicine; Referring Provider Internal Medicine Cardiovascular Disease; Visit Provider Internal Medicine Cardiovascular Disease
DX: I25.10 Atherosclerotic heart disease of native coronary artery without angina pectoris (principal)
CPT/HCPCS: 36415; 80061

== ENCOUNTER → 2022-01-26 14:01 | Outpatient (CLI) | payer MEDICARE, SELFPAY ==
[2022-01-26 15:13] LABS: Alanine Aminotransferase 40 IU/L (<50); Albumin 4.3 g/dL (3.5-5.0); Albumin Globulin Ratio 1.3 (1.0-2.8); Alkaline Phosphatase 93 U/L (38-126); Aspartate Aminotransferase 32 IU/L (17-59); BUN Creatinine Ratio 13.5 (6-22); Bilirubin Total 0.4 mg/dL (0.2-1.3); Blood Urea Nitrogen 14 mg/dL (9-20); Calcium 9.3 mg/dL (8.4-10.2); Carbon Dioxide 28 mmol/L (22-32); Chloride 102 mmol/L (98-107); Estimated Glomerular Filt Rate > 60 mL/min (>60); Globulin 3.2 g/dL (1.7-4.1); Glucose 102 mg/dL (80-110); HEMOLYSIS < 15 (0-50); Potassium 4.3 mmol/L (3.4-5.1); Sodium 140 mmol/L (137-145); Total Protein 7.5 g/dL (6.3-8.2)
== END ==
PROVIDERS: Family Provider Internal Medicine; PCP Internal Medicine; Referring Provider Internal Medicine; Visit Provider Internal Medicine
DX: Z12.5 Encounter for screening for malignant neoplasm of prostate (principal); E78.5 Hyperlipidemia, unspecified; G25.9 Extrapyramidal and movement disorder, unspecified; Z86.010 Personal history of colon polyps
CPT/HCPCS: 36415; 80053; G0103

== ENCOUNTER → 2022-03-23 08:45 | Outpatient (CLI) | payer MEDICARE, SELFPAY ==
[2022-03-23 10:16] LABS: Alanine Aminotransferase 43 IU/L (<50); Alkaline Phosphatase 104 U/L (38-126); Aspartate Aminotransferase 31 IU/L (17-59); BUN Creatinine Ratio 10.4 (6-22); Bilirubin Total 0.5 mg/dL (0.2-1.3); Blood Urea Nitrogen 12 mg/dL (9-20); Calcium 9.1 mg/dL (8.4-10.2); Carbon Dioxide 26 mmol/L (22-32); Chloride 103 mmol/L (98-107); Cholesterol 88 mg/dL (140-199); Estimated Glomerular Filt Rate > 60 mL/min (>60); Glucose 117 mg/dL (80-110); HDL Cholesterol 30 mg/dL (40-60); LDL Cholesterol Calculated 35 mg/dL (<100); Potassium 4.3 mmol/L (3.4-5.1); Sodium 140 mmol/L (137-145); Total Protein 7.4 g/dL (6.3-8.2); Triglycerides 115 mg/dL (35-150)
[2022-03-26 16:26] LABS: Albumin 4.4 g/dL (3.5-5.0); Albumin Globulin Ratio 1.5 (1.0-2.8); HEMOLYSIS < 15 (0-50)
== END ==
PROVIDERS: Family Provider Internal Medicine; PCP Internal Medicine; Referring Provider Internal Medicine Cardiovascular Disease; Visit Provider Internal Medicine Cardiovascular Disease
DX: E78.5 Hyperlipidemia, unspecified (principal)
CPT/HCPCS: 36415; 80053; 80061

== ENCOUNTER → 2022-03-29 09:41 | Outpatient (CLI) | payer MEDICARE, SELFPAY ==
[2022-03-29 11:14] LABS: COVID19 -Nasal RAPID Negative (Negative)
== END ==
PROVIDERS: Family Provider Internal Medicine; PCP Internal Medicine; Visit Provider Surgery
DX: Z20.822 Contact with and (suspected) exposure to COVID-19 (principal); Z01.812 Encounter for preprocedural laboratory examination
CPT/HCPCS: 87635; C9803

== ENCOUNTER 2022-03-30 08:41 | Day surgery (SDC) | payer MEDICARE, SELFPAY ==
--- NOTE | 2022-03-30 | PATH_ITS ---
[facility] Accession Number: [id number] No. of containers..01 Tissue . 01 Material submitted: . colon - TRANSVERSE COLON . 01 Diagnosis: Transverse Colon, Biopsy: Sessile serrated adenoma. [facility] 04/02/2022 1056 Local . 01 Electronically signed: . Aiyana Peraza MD, Pathologist NPI- [id number] . 01 Gross description: . TRANSVERSE COLON: Received in formalin are multiple fragment(s) of dominguez, soft tissue measuring 0.8 x 0.3 x 0.1 cm in aggregate submitted entirely in 1 cassette(s) /CPE 03/31/2022 0628 Local . 01 Pathologist provided ICD-10: D12.3 . 01 CPT . 141865 Specimen Comment: A courtesy copy of this report has been sent to [phone] Performed at: 01 [facility] Cyt[facility] [address] [place] [address], [place], [place] [id number] MD Igor Nj MD Phone: [phone]
[2022-03-30 09:01] VITALS: BMI 29.4
[2022-03-30 09:06] VITALS: BP 164/87; PULSE 58; RESP 16; TEMP 35.9; O2SAT 99
[2022-03-30] MEDS: LACTATED RINGERS 1,000 ML 42 ML IV ×2 (09:15→10:17)
--- NOTE | 2022-03-30 09:21 | P.HP_ITS ---
History of Present Illness History of Present Illness Date Patient Seen: 03/30/22 Time Patient Seen: 09:21 Chief complaint: SDC Narrative: The patient presents for colorectal screening. He has a personal history of colonic polyps last colonoscopy was approximately 8 years ago.. No personal or family history of colon cancer. On further history denies any recent gastrointestinal symptoms. No nausea, vomiting, abdominal pain, loss of appetite, unexplained weight loss, change in bowel habits, or blood per rectum. 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) Gastroesophageal reflux disease without esophagitis (09/25/10) H/O adenomatous polyp of colon History of nephrolithiasis Hyperlipidemia (09/25/10) Irritable bowel syndrome (09/25/10) Peripheral neuropathy (09/25/10) Umbilical hernia without obstruction and without gangrene Surgical History History of carpal tunnel repair Status post discectomy Family & Social History Tobacco & Substance use: Smoking Status Former smoker alcohol intake former Substance Use Type does not use Meds Home Medications and Allergies Home Medications Medication Instructions Recorded Confirmed Type sertraline 25 mg tablet 50 mg PO QDAY ##0 10/26/16 03/30/22 History albuterol sulfate 90 mcg/actuation 2 puff INH Q4HP PRN #1 ea 04/01/17 03/30/22 Rx aerosol inhaler (Ventolin HFA) lisinopril 5 mg tablet 5 mg PO QDAY ##0 04/25/17 03/30/22 History Disabled Parking #1 ea 12/12/17 01/21/22 Rx ezetimibe 10 mg tablet 10 mg PO DAILY 01/21/22 03/30/22 History aspirin 81 mg tablet,delayed 81 mg PO BID 03/30/22 03/30/22 History release atorvastatin 40 mg tablet 80 mg PO DAILY 03/30/22 03/30/22 History dicyclomine 20 mg tablet 20 mg PO BID 03/30/22 03/30/22 History Allergies Allergy/AdvReac Type Severity Reaction Status Date / Time Poultry Allergy Intermediate Hives Verified 03/30/22 08:57 egg [EGG] Allergy Mild Hives Verified 03/30/22 08:57 gabapentin [GABAPENTIN] Allergy Mild DYSKENSIA Verified 03/30/22 08:57 Penicillins [PENICILLINS] Allergy Mild RASH AND Verified 03/30/22 08:57 SWELLING almond [ALMOND] Allergy Unknown Seizure Verified 03/30/22 08:57 Milk Containing Products Allergy Unknown Hives Verified 03/30/22 08:57 cyclobenzaprine AdvReac Intermediate DIARRHEA, Verified 03/30/22 08:57 [CYCLOBENZAPRINE] STOMACH UPSET Exam Vital Signs (past 8 hours): - 03/30/22 09:06 Temperature 96.7 F L Pulse Rate 58 L Respiratory Rate 16 Blood Pressure 164/87 H Pulse Oximetry 99 Oxygen Delivery Method Room Air Oxygen Delivery Method Room Air Narrative Exam Narrative: General adult man alert oriented no acute distress Abdomen soft nontender nondistended Assessment & Plan Assessment and plan (1) H/O adenomatous polyp of colon: Problem details: 2013 Status: Inactive Assessment & Plan narrative: The patient requires colorectal screening and colonoscopy is recommended. Technical details were discussed. Risks, benefits, alternatives explained. Ri sks including but not limited to myocardial infarction, aspiration, bleeding, pain, missed lesion, incomplete examination, need for further radiographic studies, colonic perforation, and need for major abdominal surgery were discussed. All questions were answered to their satisfaction, and they are in agreement with this plan. Time Spent With Patient Critical Care time: I spent a total of [] minutes of critical care time on this patient's care today; this time is exclusive of procedural time.
--- NOTE | 2022-03-30 10:03 | PM.OP.COLON ---
Operative Date/Time/Diagnoses Date of procedure: 03/30/22 Time of procedure: 10:03 Pre-op diagnosis: Personal history of colonic polyps Post-op diagnosis: same Procedure & Clinicians Study performed: Colonoscopy Same procedure as scheduled: Yes Indications: Personal history of colonic polyps Surgeon: Sacha Armenta Procedure Notes Procedure in detail: The history and physical was performed/updated and the patient is ASA class is 2. The procedure was discussed in detail with the patient. Potential risks complications including infection, bleeding, missed diagnosis, perforation, need for surgery, and were explained. Their questions were answered and informed consent was obtained. Patient was brought to the procedure room and placed standard monitoring equipment. The patient's vital signs were monitored continuously throughout the entire procedure. Prior to starting time-out was performed. The patient was placed in the left lateral recumbent position. Procedural sedation was administered by anesthesia. Examination began with a thorough inspection of the perianal area there was no evidence of fissures, fistulae, external hemorrhoids or cutaneous malignancy. The colonoscopy scope was then placed into the anal canal and was advanced to the cecum, which was identified by the ileocecal valve, the appendiceal orifice and the confluence of the taenia. The scope was then slowly withdrawn examining colon thoroughly in all directions, irrigating it of any residual stool. FINDINGS 1. Transverse colon polyps x2. 3-5mm removed with biopsy forceps 2. Sigmoid-mild diverticulosis The patient tolerated the procedure well. They will be discharged once criteria are met. The prep was of good/excellent quality. The withdrawl time was 7 minutes. Specimen(s): other (Transverse colon polyps x2) Impression: Colonic polyp Post-procedure Recommendations: High fiber diet Plan for aftercare: Follow-up is dependent on pathology findings Disposition: same day surgery
[2022-03-30 10:37] VITALS: BP 114/64; PULSE 52; RESP 16; TEMP 36.4; O2SAT 100
[2022-03-30 10:42] VITALS: BP 138/89; PULSE 64; RESP 13; TEMP 36.3; O2SAT 98
[2022-03-30 10:48] VITALS: BP 134/73; PULSE 52; RESP 11; TEMP 36.5; O2SAT 98
[2022-03-30 10:52] VITALS: BP 141/74; PULSE 54; RESP 11; TEMP 36.3; O2SAT 99
== END 2022-03-30 11:04 | disposition home or self-care (01) ==
PROVIDERS: Family Provider Internal Medicine; PCP Internal Medicine; Referring Provider Surgery; Visit Provider Surgery
PROC: 0DJD8ZZ Inspection of Lower Intestinal Tract, Via Natural or Artificial Opening Endoscopic (ICD-10-PCS; CPT 45378; principal; 2022-03-30 09:45)
DX: Z12.11 Encounter for screening for malignant neoplasm of colon (principal); Z86.010 Personal history of colon polyps; K57.30 Diverticulosis of large intestine without perforation or abscess without bleeding; D12.3 Benign neoplasm of transverse colon
CPT/HCPCS: 45380; J2704

== ENCOUNTER → 2022-10-13 09:04 | Outpatient (CLI) | payer MEDICARE, SELFPAY ==
[2022-10-13 10:15] LABS: Free T4, Direct Thyroxine 1.06 ng/dL (0.78-2.19)
[2022-10-13 10:29] LABS: Thyroid Stimulating Hormone 1.51 uIU/mL (0.47-4.68)
[2022-10-13 11:04] LABS: Folate 10.9 ng/mL (2.76-20.0); Vitamin B12 606 pg/mL (239-931)
[2022-10-14 17:41] LABS: Vitamin D 25 Hydroxy (D3) 39.8 ng/mL (30.0-100.0)
== END ==
PROVIDERS: Family Provider Internal Medicine; PCP Internal Medicine; Referring Provider Psychiatry & Neurology Neurology; Visit Provider Psychiatry & Neurology Neurology
DX: R53.83 Other fatigue (principal); E55.9 Vitamin D deficiency, unspecified; Z81.8 Family history of other mental and behavioral disorders
CPT/HCPCS: 36415; 82306; 82607; 82746; 84439; 84443

== ENCOUNTER → 2022-10-18 08:07 | Outpatient (CLI) | payer MEDICARE, SELFPAY ==
--- NOTE | 2022-10-18 | DI.MRI.S_ITS ---
PROCEDURE: MR HEAD/BRAIN WO CON INDICATIONS: Dystonia / memory loss TECHNIQUE: Noncontrast axial T1 spin echo, axial T2 fast spin echo, sagittal and axial FLAIR, coronal T2 fast spin echo, axial gradient echo, axial diffusion and ADC through the brain. COMPARISON: None. FINDINGS: Image quality: Excellent. CSF Spaces: Basal cisterns are patent. No extra-axial fluid collections. Ventricles are normal in size and shape. Brain: No intracranial masses or hemorrhage. [place]/white matter interface is normal. Brainstem appears normal. Diffusion-weighted sequence is unremarkable without evidence of acute infarct. Normal intravascular flow voids are present. Skull and face: Right maxillary sinus retention cyst Sinuses: Sinuses and mastoids are clear. IMPRESSION: Unremarkable MRI of the brain. No intracranial infarct, hemorrhage or mass lesion. Incidental right maxillary sinus retention cyst Approved by: Everton Mendoza M.D. on 10/18/2022 at 15:55
== END ==
PROVIDERS: Family Provider Internal Medicine; PCP Internal Medicine; Referring Provider Psychiatry & Neurology Neurology; Visit Provider Psychiatry & Neurology Neurology
DX: R41.3 Other amnesia (principal); G24.9 Dystonia, unspecified; J34.1 Cyst and mucocele of nose and nasal sinus
CPT/HCPCS: 70551

== ENCOUNTER → 2023-03-28 15:23 | Outpatient (CLI) | payer MEDICARE, SELFPAY ==
[2023-03-28 17:05] LABS: Add Manual Diff / Slide Review NO; Basophils Absolute Auto 100 /uL (0-100); Basophils Percent Auto 0.8 % (0-2); Eosinophils Absolute Auto 100 /uL (0-450); Eosinophils Percent Auto 1.1 % (2-4); Hematocrit 45.1 % (41-53); Hemoglobin 15.3 g/dL (13.5-17.5); Lymphocytes Absolute Auto 3500 /uL (1100-4500); Lymphocytes Percent Auto 34.3 % (25-40); Mean Corpuscular HGB Conc 33.8 % (30-36); Mean Corpuscular Hemoglobin 30.8 PG (26-34); Mean Corpuscular Volume 91.2 fL (80-100); Monocytes Absolute Auto 800 /uL (0-900); Monocytes Percent Auto 7.6 % (3-14); Neutrophils Absolute Auto 5800 /uL (1500-7000); Neutrophils Percent Auto 56.2 % (50-75); Platelet Count 249 X10^3/uL (150-400); Red Blood Cell Count 4.95 X10^6/uL (4.5-5.9); Red Cell Distribution Width 13.7 % (11.6-14.8); White Blood Cell Count 10.2 X10^3/uL (4.5-11.0)
[2023-03-28 17:21] LABS: Cholesterol 129 mg/dL (140-199); HDL Cholesterol 28 mg/dL (40-60); LDL Cholesterol Calculated 74 mg/dL (<100); Triglycerides 134 mg/dL (35-150)
[2023-03-30 15:27] LABS: Alanine Aminotransferase 34 IU/L (<50); Albumin 4.5 g/dL (3.5-5.0); Albumin Globulin Ratio 1.3 (1.0-2.8); Alkaline Phosphatase 107 U/L (38-126); Aspartate Aminotransferase 37 IU/L (17-59); BUN Creatinine Ratio 15.3 (6-22); Bilirubin Total 0.6 mg/dL (0.2-1.3); Blood Urea Nitrogen 18 mg/dL (9-20); Calcium 9.9 mg/dL (8.4-10.2); Carbon Dioxide 21 mmol/L (22-32); Chloride 106 mmol/L (98-107); Estimated Glomerular Filt Rate > 60 mL/min (>60); Globulin 3.6 g/dL (1.7-4.1); Glucose 91 mg/dL (80-110); HEMOLYSIS 26 (0-50); Potassium 4.9 mmol/L (3.4-5.1); Sodium 137 mmol/L (137-145); Total Protein 8.1 g/dL (6.3-8.2)
== END ==
PROVIDERS: Family Provider Internal Medicine; PCP Internal Medicine; Referring Provider Nurse Practitioner Acute Care; Visit Provider Nurse Practitioner Acute Care
DX: E78.5 Hyperlipidemia, unspecified (principal); I10 Essential (primary) hypertension; I25.10 Atherosclerotic heart disease of native coronary artery without angina pectoris
CPT/HCPCS: 36415; 80053; 80061; 85025

== ENCOUNTER → 2023-10-12 13:09 | Outpatient (CLI) | payer MEDICARE, SELFPAY ==
[2023-10-12 14:48] LABS: Alanine Aminotransferase 33 IU/L (<50); Albumin 4.4 g/dL (3.5-5.0); Albumin Globulin Ratio 1.6 (1.0-2.8); Alkaline Phosphatase 117 U/L (38-126); Aspartate Aminotransferase 30 IU/L (17-59); BUN Creatinine Ratio 12.6 (6-22); Bilirubin Total 0.5 mg/dL (0.2-1.3); Blood Urea Nitrogen 15 mg/dL (9-20); Calcium 10.1 mg/dL (8.4-10.2); Carbon Dioxide 27 mmol/L (22-32); Chloride 107 mmol/L (98-107); Cholesterol 109 mg/dL (140-199); Estimated Glomerular Filt Rate > 60 mL/min (>60); Globulin 2.8 g/dL (1.7-4.1); Glucose 116 mg/dL (80-110); HDL Cholesterol 31 mg/dL (40-60); HEMOLYSIS < 15 (0-50); LDL Cholesterol Calculated 49 mg/dL (<100); Sodium 141 mmol/L (137-145); Total Protein 7.2 g/dL (6.3-8.2); Triglycerides 143 mg/dL (35-150)
[2023-10-12 14:53] LABS: Potassium 5.7 mmol/L (3.4-5.1)
[2023-10-12 15:17] LABS: Prostate Specific Antigen Scrn 0.879 ng/mL (0.1-4.0)
== END ==
PROVIDERS: Internal Medicine Cardiovascular Disease; Family Provider Internal Medicine; PCP Internal Medicine; Referring Provider Internal Medicine; Visit Provider Internal Medicine
DX: I25.10 Atherosclerotic heart disease of native coronary artery without angina pectoris (principal); Z12.5 Encounter for screening for malignant neoplasm of prostate; E78.5 Hyperlipidemia, unspecified
CPT/HCPCS: 36415; 80053; 80061; G0103

== ENCOUNTER 2023-10-13 14:57 | Emergency (ER) | payer MEDICARE, SELFPAY ==
[2023-10-13] VITALS (7 sets, daily range): BP systolic 134–176; BP diastolic 64–79; PULSE 44–79; RESP 6–18; TEMP 36.2–37; O2SAT 98–99; BMI 29.2
[2023-10-13 15:18] LABS: Add Manual Diff / Slide Review NO; Basophils Absolute Auto 100 /uL (0-100); Basophils Percent Auto 0.9 % (0-2); Eosinophils Absolute Auto 200 /uL (0-450); Eosinophils Percent Auto 1.5 % (2-4); Hematocrit 44.2 % (41-53); Hemoglobin 14.9 g/dL (13.5-17.5); Lymphocytes Absolute Auto 3900 /uL (1100-4500); Lymphocytes Percent Auto 34.5 % (25-40); Mean Corpuscular HGB Conc 33.7 % (30-36); Mean Corpuscular Hemoglobin 31.2 PG (26-34); Mean Corpuscular Volume 92.5 fL (80-100); Monocytes Absolute Auto 1000 /uL (0-900); Monocytes Percent Auto 8.6 % (3-14); Neutrophils Absolute Auto 6100 /uL (1500-7000); Neutrophils Percent Auto 54.5 % (50-75); Platelet Count 263 X10^3/uL (150-400); Red Blood Cell Count 4.78 X10^6/uL (4.5-5.9); Red Cell Distribution Width 13.7 % (11.6-14.8); White Blood Cell Count 11.2 X10^3/uL (4.5-11.0)
[2023-10-13 15:37] LABS: Alanine Aminotransferase 33 IU/L (<50); Albumin 4.6 g/dL (3.5-5.0); Albumin Globulin Ratio 1.5 (1.0-2.8); Alkaline Phosphatase 105 U/L (38-126); Aspartate Aminotransferase 29 IU/L (17-59); BUN Creatinine Ratio 13.8 (6-22); Bilirubin Total 0.5 mg/dL (0.2-1.3); Blood Urea Nitrogen 16 mg/dL (9-20); Calcium 9.5 mg/dL (8.4-10.2); Carbon Dioxide 26 mmol/L (22-32); Chloride 108 mmol/L (98-107); Estimated Glomerular Filt Rate > 60 mL/min (>60); Glucose 122 mg/dL (80-110); HEMOLYSIS < 15 (0-50); Potassium 4.4 mmol/L (3.4-5.1); Sodium 139 mmol/L (137-145); Total Protein 7.6 g/dL (6.3-8.2)
--- NOTE | 2023-10-13 15:45 | ED.RECABL ---
HPI - Recheck/Abnormal Lab/Rx General Chief Complaint: Recheck/Abnormal Lab/Rx Stated Complaint: sent by Dr Colvin for eval Time Seen by Provider: 10/13/23 15:07 Source: patient Mode of arrival: Ambulatory History of Present Illness HPI narrative: Patient is a 68-year-old male. 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 Was called today because his potassium was elevated. He states he was asymptomatic, no chest pain, no palpitations, no lightheadedness. He states his heart rate is normally in the upper 40s or low 50s. Is not lightheaded. No changes in his medications recently. Related Data Home Medications Medication Instructions Recorded Confirmed lisinopril 5 mg tablet 5 mg PO QDAY ##0 04/25/17 10/10/23 ezetimibe 10 mg tablet 10 mg PO DAILY 01/21/22 10/10/23 aspirin 81 mg tablet,delayed 81 mg PO BID 03/30/22 10/10/23 release atorvastatin 80 mg tablet 80 mg PO BEDTIME 10/10/23 10/10/23 Previous Rx's Medication Instructions Recorded albuterol sulfate 90 mcg/actuation 2 puff INH Q4HP PRN #1 ea 04/01/17 aerosol inhaler (Ventolin HFA) Disabled Parking #1 ea 10/21/22 sertraline 100 mg tablet 100 mg PO DAILY #100 tabs 10/21/22 dicyclomine 20 mg tablet 20 mg PO 3XD #270 tabs 06/13/23 Allergies Allergy/AdvReac Type Severity Reaction Status Date / Time Poultry Allergy Intermediate Hives Verified 10/10/23 13:31 egg [EGG] Allergy Mild Hives Verified 10/10/23 13:31 gabapentin [GABAPENTIN] Allergy Mild DYSKENSIA Verified 10/10/23 13:31 Penicillins [PENICILLINS] Allergy Mild RASH AND Verified 10/10/23 13:31 SWELLING almond [ALMOND] Allergy Unknown Seizure Verified 10/10/23 13:31 Milk Containing Products Allergy Unknown Hives Verified 10/10/23 13:31 (Dairy) [Milk Containing Products] cyclobenzaprine AdvReac Intermediate DIARRHEA, Verified 10/10/23 13:31 [CYCLOBENZAPRINE] STOMACH UPSET Review of Systems Review of Systems ROS Unobtainable: All systems reviewed & are unremarkable except as noted in HPI and below Patient History Medical History Depression H/O adenomatous polyp of colon Colon polyps (~2012) History of nephrolithiasis Coronary artery disease involving [place] coronary artery of [place] heart without angina pectoris (04/25/17) 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) Peripheral neuropathy (09/25/10) Gastroesophageal reflux disease without esophagitis (09/25/10) Hyperlipidemia (09/25/10) Irritable bowel syndrome (09/25/10) Umbilical hernia without obstruction and without gangrene Surgical History History of carpal tunnel repair Status post discectomy Social History Smoking Status: Former smoker alcohol intake: former Smoking Status: Former smoker Substance Use Type: does not use Exam Initial Vital Signs Initial Vital Signs: Vital Signs Temperature 98.6 F 10/13/23 15:02 Pulse Rate 52 L 10/13/23 15:02 Respiratory Rate 18 10/13/23 15:02 Blood Pressure 153/67 H 10/13/23 15:02 Pulse Oximetry 99 10/13/23 15:02 Oxygen Delivery Method Room Air 10/13/23 15:02 Const General: cooperative, comfortable and No ill appearing HENMT Head: normal to inspection and normocephalic Resp Effort & Inspection: normal respiratory effort Cardio Rate: regular rate Skin General: no rashes or lesions noted Neuro General: patient alert, patient awake and moves all extremities Extrem General: capillary refill normal Course Orders Ordered: ED Orders 10/13/23 15:08 EKG-12 Lead Stat 10/13/23 15:12 Complete Blood Count AUTO DIFF Stat Comprehensive Metabolic Panel Stat Vital Signs Vital signs: Vital Signs - 8 hr 10/13/23 15:02 10/13/23 15:04 10/13/23 15:04 Temperature 98.6 F Pulse Rate 52 L 79 Respiratory Rate 18 Blood Pressure 153/67 H 153/67 H Pulse Oximetry 99 99 Oxygen Delivery Method Room Air 10/13/23 15:15 10/13/23 15:15 10/13/23 15:30 Temperature Pulse Rate 47 L 45 L Respiratory Rate 12 12 Blood Pressure 143/64 H Pulse Oximetry 99 98 Oxygen Delivery Method 10/13/23 15:30 10/13/23 15:46 10/13/23 15:46 Temperature Pulse Rate 44 L Respiratory Rate 6 L Blood Pressure 134/65 153/68 H Pulse Oximetry 98 Oxygen Delivery Method 10/13/23 15:48 10/13/23 15:48 Temperature Pulse Rate 51 L Respiratory Rate 18 Blood Pressure 176/79 H Pulse Oximetry 98 Oxygen Delivery Method MDM - Recheck/Abnormal Lab/Rx Medical Records Attestation: I reviewed the patient's medical records. Lab Data Attestation: I reviewed the patient's lab results. 10/13/23 15:12 10/13/23 15:12 Labs: Lab Results 10/13/23 Range/Units 15:12 WBC 11.2 H (4.5-11.0) X10^3/uL RBC 4.78 (4.5-5.9) X10^6/uL Hgb 14.9 (13.5-17.5) g/dL Hct 44.2 (41-53) % MCV 92.5 (80-100) fL MCH 31.2 (26-34) PG MCHC 33.7 (30-36) % RDW 13.7 (11.6-14.8) % Plt Count 263 (150-400) X10^3/uL Neut % (Auto) 54.5 (50-75) % Lymph % (Auto) 34.5 (25-40) % [place] % (Auto) 8.6 (3-14) % Eos % (Auto) 1.5 L (2-4) % Baso % (Auto) 0.9 (0-2) % Neut # (Auto) 6100 (4392-7687) /uL Lymph # (Auto) 3900 (2820-6482) /uL [place] # (Auto) 1000 H (0-900) /uL Eos # (Auto) 200 (0-450) /uL Baso # (Auto) 100 (0-100) /uL Sodium 139 (137-145) mmol/L Potassium 4.4 D (3.4-5.1) mmol/L Chloride 108 H (98-107) mmol/L Carbon Dioxide 26 (22-32) mmol/L BUN 16 (9-20) mg/dL Creatinine 1.16 (0.66-1.25) mg/dL Estimated GFR > 60 (>60) mL/min BUN/Creatinine Ratio 13.8 (6-22) Glucose 122 H (80-110) mg/dL Calcium 9.5 (8.4-10.2) mg/dL Total Bilirubin 0.5 (0.2-1.3) mg/dL AST 29 (17-59) IU/L ALT 33 (<50) IU/L Alkaline Phosphatase 105 (38-126) U/L Total Protein 7.6 (6.3-8.2) g/dL Albumin 4.6 (3.5-5.0) g/dL Globulin 3.0 (1.7-4.1) g/dL Albumin/Globulin Ratio 1.5 (1.0-2.8) ECG Data Attestation: I personally reviewed and interpreted this ECG as follows: Interpretation: Sinus bradycardia Ventricular rate of 45 Normal axis Normal QRS Normal QTC No ST T wave changes MDM Narrative Medical decision making narrative: Labs from yesterday did show potassium of 5.7 with a normal kidney function. Today potassium is less than 5. No EKG changes. Is bradycardic but this is baseline for him. Normal kidney function. He was asymptomatic. Will discharge patient home with follow-up with Cardiology. Discharge Plan Departure Patient Disposition: Home Clinical Impression: Feared condition not demonstrated Activity Restrictions/Additional Instructions: Your potassium in the blood draw today in the emergency department is normal. Continue to take all of your medications as directed. 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 Return to the emergency department for new or worsening symptoms. Prescriptions: No Action albuterol sulfate [Ventolin HFA] 90 MCG/PUFF HFA aerosol inhaler 2 puff INH Q4HP PRNQty: 1 0RF lisinopril 5 MG tablet 5 mg PO QDAY Qty: 0 dicyclomine 20 mg tablet 20 mg PO 3XD Qty: 270 3RF ezetimibe 10 mg tablet 10 mg PO DAILY sertraline 100 mg tablet 100 mg PO DAILY Qty: 100 3RF (DME) Disabled Parking Qty: 1 0RF Rx Instructions: Patient qualifies for disabled parking as per the attached form. atorvastatin 80 mg tablet 80 mg PO BEDTIME Patient Comments: [NO ORIGINAL SIG] aspirin 81 mg Tablet,Delayed Release (Dr/Ec) 81 mg PO BID Referrals: Frankie Martinez MD [Primary Care Provider] - Stand Alone Forms: Patient Portal/API
--- NOTE | 2023-10-13 15:54 | EKG_ITS ---
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
== END 2023-10-13 16:07 | disposition home or self-care (01) ==
PROVIDERS: Emergency Provider Emergency Medicine; Family Provider Internal Medicine; PCP Internal Medicine
DX: E87.5 Hyperkalemia (principal); R00.1 Bradycardia, unspecified; R79.89 Other specified abnormal findings of blood chemistry
CPT/HCPCS: 36415; 80053; 85025; 93005; 93010; 99283; 99284

== ENCOUNTER → 2023-12-02 14:09 | Outpatient (CLI) | payer MEDICARE, SELFPAY ==
--- NOTE | 2023-12-02 14:10 | DI.US.S_ITS ---
PROCEDURE: US ABDOMEN LIMITED INDICATIONS: POSSIBLE CYST/ABSCESS PERINEUM TECHNIQUE: Real-time focused scanning was performed of the right perineum, patient's area of concern,, with image documentation. COMPARISON: None. FINDINGS: There is a 0.9 x 0.4 x 0.7 cm fluid collection with increased peripheral vascularity in the superficial soft tissue of the right perineum, patient's area of concern, with suggestion of a small tract to the skin. Overall, findings suggestive of a small abscess. IMPRESSION: 0.9 cm likely small abscess in the superficial soft tissue of the right perineum. Dictated by: Vikki Alonso M.D. on 12/02/2023 at 16:26 Approved by: Vikki Alonso M.D. on 12/02/2023 at 16:29
== END ==
PROVIDERS: Family Provider Internal Medicine; PCP Internal Medicine; Referring Provider Nurse Practitioner Family; Visit Provider Nurse Practitioner Family
DX: L08.9 Local infection of the skin and subcutaneous tissue, unspecified (principal)
CPT/HCPCS: 76705

== ENCOUNTER → 2024-10-09 06:49 | Outpatient (CLI) | payer MEDICARE, SELFPAY ==
[2024-10-09 08:34] LABS: Alanine Aminotransferase 25 IU/L (<50); Albumin 4.1 g/dL (3.5-5.0); Albumin Globulin Ratio 1.5 (1.0-2.8); Alkaline Phosphatase 111 U/L (38-126); Blood Urea Nitrogen 17 mg/dL (9-20); Calcium 8.9 mg/dL (8.4-10.2); Carbon Dioxide 21 mmol/L (22-32); Chloride 109 mmol/L (98-107); Cholesterol 113 mg/dL (140-199); Estimated Glomerular Filt Rate > 60 mL/min (>60); Globulin 2.8 g/dL (1.7-4.1); Glucose 114 mg/dL (70-99); HDL Cholesterol 28 mg/dL (40-60); HEMOLYSIS < 15 (0-50); Potassium 4.1 mmol/L (3.4-5.1); Sodium 138 mmol/L (137-145); Total Protein 6.9 g/dL (6.3-8.2); Triglycerides 179 mg/dL (35-150)
== END ==
PROVIDERS: PCP Internal Medicine; Referring Provider Internal Medicine; Visit Provider Internal Medicine
DX: E78.5 Hyperlipidemia, unspecified (principal); Z12.5 Encounter for screening for malignant neoplasm of prostate; I25.10 Atherosclerotic heart disease of native coronary artery without angina pectoris; G62.9 Polyneuropathy, unspecified
CPT/HCPCS: 80053; 80061; G0103

== ENCOUNTER → 2025-02-26 13:47 | Outpatient (CLI) | payer MEDICARE, SELFPAY ==
[2024-12-17 23:38] VITALS: BMI 27.8
--- NOTE | 2025-02-26 13:49 | DI.RAD.S_ITS ---
PROCEDURE: XR SHOULDER RT MIN 2V INDICATIONS: Right shoulder pain TECHNIQUE: 3 views of the shoulder were acquired. COMPARISON: [facility], ALISA, CHEST 2 VIEW, 04/01/2017, 15:34. [facility], ALISA, XR CHEST 1V, 12/17/2024, 16:56. FINDINGS: Bones: No fractures or dislocations. No suspicious bony lesions. Visualized ribs appear intact. Stable appearance of proximal humeral cortex possibly related to sequela of remote injury. Soft tissues: No suspicious soft tissue calcifications. IMPRESSION: No acute bony abnormality. If there are persistent symptoms or clinical suspicion for pathology, then repeat radiographs or advanced imaging (CT or MRI) may be considered for further evaluation. Dictated by: Dann Zaman M.D. on 02/26/2025 at 15:15 Approved by: Dann Zaman M.D. on 02/26/2025 at 15:16
== END ==
PROVIDERS: PCP Internal Medicine; Referring Provider Nurse Practitioner Family; Visit Provider Nurse Practitioner Family
DX: M25.511 Pain in right shoulder (principal)
CPT/HCPCS: 73030

== ENCOUNTER → 2025-03-06 17:56 | Outpatient (CLI) | payer MEDICARE, SELFPAY ==
[2024-12-17 23:38] VITALS: BMI 27.8
--- NOTE | 2025-03-06 17:58 | DI.MRI.S_ITS ---
PROCEDURE: MR SHOULDER RT WO CON INDICATIONS: R/O occult fracture and asses rotator cuff TECHNIQUE: Noncontrast oblique coronal T2 fast spin echo with fat saturation, oblique sagittal T1 spin echo and T2 fast spin echo with fat saturation, axial T1 spin echo and T2 fast spin echo with fat saturation through the shoulder. COMPARISON: [facility], CR, XR SHOULDER RT 2+ VIEWS, 02/26/2025, 14:01. FINDINGS: Quality: Patient motion degrades examination. Tendons: Rotator cuff tendons: Greater than 50% thickness articular sided tear insertional supraspinatus tendon with full-thickness tearing at the noninsertional posterior fires. Additional full-thickness tearing of infraspinatus tendon. Teres minor tendon intact. Full-thickness tear of the superior 3rd of the subscapularis tendon. Long head of biceps tendon: Medial dislocation and partial tear. Muscles: Edema and partial tear of the infraspinatus tendon muscle belly. Edema in the supraspinatus, teres minor and subscapularis muscles. Edema in the deltoid. Acromioclavicular joint: Unremarkable. Glenohumeral joint: Labrum: Inferior labral tearing. Cartilage: No focal defect. Fluid: Large effusion with synovitis. Alignment: No dislocation. Bursa: Subacromial/subdeltoid bursa: Distended with synovitis. Subcoracoid bursa: Nondistended. Bones: Extensive marrow edema in the posterolateral humerus with hypointense serpiginous subcortical line. IMPRESSION: Nondisplaced humeral head/greater tuberosity fracture. Full-thickness partial width supraspinatus and infraspinatus tendon tears. Grade 2 infraspinatus muscle strain. Full-thickness partial width subscapularis tendon tear. Medial long head of biceps dislocation and partial tear. Inferior labral tear. Large effusion with synovitis. Subacromial/subdeltoid bursitis. Dictated by: See High M.D. on 03/08/2025 at 12:00 Approved by: See High M.D. on 03/08/2025 at 12:13
== END ==
LOC: MRI 17:57
PROVIDERS: PCP Internal Medicine; Referring Provider Physician Assistant Surgical; Visit Provider Physician Assistant Surgical
DX: S42.254A Nondisplaced fracture of greater tuberosity of right humerus, initial encounter for closed fracture (principal); M75.111 Incomplete rotator cuff tear or rupture of right shoulder, not specified as traumatic; S46.111A Strain of muscle, fascia and tendon of long head of biceps, right arm, initial encounter; S43.491A Other sprain of right shoulder joint, initial encounter; R29.898 Other symptoms and signs involving the musculoskeletal system; M65.911 Unspecified synovitis and tenosynovitis, right shoulder; M25.411 Effusion, right shoulder; M75.51 Bursitis of right shoulder; M25.511 Pain in right shoulder
CPT/HCPCS: 73221